=== PATIENT | male | born 1955 | race African-American/Black ===

== ENCOUNTER 2016-09-07 14:32 | Emergency (ER) | payer MEDICAID, OTHER ==
[~2016-09-07] VITALS: Ht 177.8 cm; Wt 77.3 kg
[~2016-09-07 14:32] MED LIST: AMLO-512 PO; BENZ0.5T6 PO; CITA20TA9 PO; NOCURR; RISP1TAB54 PO; TRAZ-144 PO; TRIA1CAP6 PO
[2016-09-07] MEDS ORDERED: LISI-660 PO (15:00)
[2016-09-07] MEDS ORDERED: OxyCODONE HCL/ACETAMINOPHEN 5-325 MG TABLET PO ONE (15:45)
[2016-09-07 16:30] VITALS: BP 129/90
== END 2016-09-07 17:56 | disposition home or self-care (01) ==
LOC: EMS 14:33
DX: G89.29 Other chronic pain (principal); M54.2 Cervicalgia; M54.5 Low back pain; J44.9 Chronic obstructive pulmonary disease, unspecified; F17.210 Nicotine dependence, cigarettes, uncomplicated; I10 Essential (primary) hypertension; Z71.6 Tobacco abuse counseling
CPT/HCPCS: 72040; 72100; 99285; 99406

== ENCOUNTER 2016-09-11 14:07 | Emergency (ER) | payer MEDICAID ==
[~2016-09-11] VITALS: Ht 177.8 cm; Wt 81.8 kg
[~2016-09-11 14:07] MED LIST changes: +LISI-660 PO; -NOCURR
[2016-09-11] MEDS ORDERED: METHOCARBAMOL 500 MG TABLET PO ONE (14:45)
[2016-09-11] MEDS ORDERED: KETOROLAC TROMETHAMINE 60 MG/2 ML VIAL IM ONE (14:45)
[2016-09-11] MEDS ORDERED: OxyCODONE HCL/ACETAMINOPHEN 5-325 MG TABLET PO ONE (14:45)
[2016-09-11 15:55] VITALS: BP 169/92
== END 2016-09-11 15:57 | disposition home or self-care (01) ==
LOC: EMS 14:09
DX: M54.5 Low back pain (principal); I10 Essential (primary) hypertension; F17.210 Nicotine dependence, cigarettes, uncomplicated
CPT/HCPCS: 99283

== ENCOUNTER 2017-05-12 19:18 | Inpatient (IN) | payer MEDICAID ==
[~2017-05-12] VITALS: Ht 177.8 cm; Wt 75.0 kg
[2017-05-12 19:57] LABS: APPEARANCE,URINE CLEAR (CLEAR); BILIRUBIN,URINE NEGATIVE (NEGATIVE); GLUCOSE, URINE (UA) NEGATIVE (NEGATIVE); KETONES,URINE NEGATIVE (NEGATIVE); LEUKOCYTE ESTERASE ,URINE NEGATIVE (NEGATIVE); NITRATE,URINE NEGATIVE (NEGATIVE); OCCULT BLOOD,URINE NEGATIVE (NEGATIVE); PROTEIN,URINE POS 1+ (NEGATIVE); UROBILINOGEN,URINE 0.2 mg/dL (<=1.0)
[2017-05-12 19:57] LABS: HEMATOCRIT 34.4 % (41-53); HEMOGLOBIN 11.4 g/dL (13.5-17.5); MEAN CORPUSCULAR HEMOGLOBIN 30.4 pg (26.0-34.0); MEAN CORPUSCULAR HGB CONC 33.3 G/dL (31.0-37.0); MEAN CORPUSCULAR VOLUME 91 fL (80-100); PLATELET COUNT (AUTO) 255 K/uL (150-450); RED BLOOD CELL COUNT(AUTO) 3.77 MIL/uL (4.50-5.90)
[2017-05-12 20:10] LABS: BACTERIA,URINE None Seen /HPF (None Seen); RBC,URINE None Seen /HPF (0-2); SQUAMOUS EPITHELIAL CELL,UR Rare /LPF (None Seen); WBC,URINE None Seen /HPF (0-5)
[2017-05-12 20:10] LABS: CALCIUM, TOTAL 8.8 mg/dL (8.8-10.5); CREATININE 3.59 mg/dL (0.60-1.30)
[2017-05-12 20:15] LABS: ALBUMIN 3.5 g/dL (3.4-5.0); BILIRUBIN,TOTAL 0.2 mg/dL (0.1-1.0); TOTAL PROTEIN, SERUM 7.7 g/dL (6.4-8.2)
[2017-05-12 20:44] LABS: LYMPHOCYTES % (MANUAL) 18 % (22-44); MONOCYTES % (MANUAL) 6 % (2-9); SEGMENTED NEUTROPHILS % 76 % (40-70)
[2017-05-12] MEDS ORDERED: SODIUM CHLORIDE 0.9% 1,000 ML IV ONE (20:45)
[2017-05-12] MEDS ORDERED: MORPHINE SULFATE 4 MG/ML SYRINGE IVP ONE (20:45)
[2017-05-12] MEDS ORDERED: ONDANSETRON HCL 4 MG/2 ML VIAL IVP ONE (20:45)
[2017-05-12] MEDS ORDERED: ACETAMINOPHEN 325 MG TABLET PO PRN (22:30)
[2017-05-12] MEDS ORDERED: ONDANSETRON HCL 4 MG/2 ML VIAL IVP PRN (22:30)
[2017-05-12] MEDS ORDERED: 0.9% SODIUM CHLORIDE 10 ML SYRINGE IVP PRN (22:30)
[2017-05-13] MEDS ORDERED: HYDROCODONE/ACETAMINOPHEN 5-325 MG TABLET PO PRN ×2 (00:45→02:45)
[2017-05-13] MEDS: MORPHINE SULFATE 4 MG/ML SYRINGE IVP PRN ×2 (00:59→06:06)
[2017-05-13] MEDS: RisperiDONE 1 MG TABLET PO SCH ×3 (02:45→20:26)
[2017-05-13] MEDS ORDERED: ACETAMINOPHEN 325 MG TABLET PO PRN (02:45)
[2017-05-13] MEDS ORDERED: OxyCODONE HCL/ACETAMINOPHEN 5-325 MG TABLET PO PRN (02:45)
[2017-05-13 08:01] LABS: HEMATOCRIT 36.4 % (41-53); HEMOGLOBIN 11.7 g/dL (13.5-17.5); MEAN CORPUSCULAR HEMOGLOBIN 29.9 pg (26.0-34.0); MEAN CORPUSCULAR HGB CONC 32.1 G/dL (31.0-37.0); MEAN CORPUSCULAR VOLUME 93 fL (80-100); PLATELET COUNT (AUTO) 251 K/uL (150-450); RED CELL DISTRIBUTION WIDTH 14.2 % (11.5-14.5)
[2017-05-13 08:29] LABS: CALCIUM, TOTAL 8.9 mg/dL (8.8-10.5); CREATININE 3.13 mg/dL (0.60-1.30); POTASSIUM 4.7 mmol/L (3.5-5.1)
[2017-05-13 08:40] LABS: BAND NEUTROPHILS % (MANUAL) 1 % (1-5); LYMPHOCYTES % (MANUAL) 19 % (22-44); MONOCYTES % (MANUAL) 5 % (2-9); SEGMENTED NEUTROPHILS % 75 % (40-70)
[2017-05-13] MEDS: CITALOPRAM HYDROBROMIDE 20 MG TABLET PO SCH (08:47)
[2017-05-13] MEDS ORDERED: AmLODIPine BESYLATE 10 MG TABLET PO SCH (09:00)
[2017-05-13 15:28] VITALS: BP 125/86
[2017-05-13 19:45] VITALS: BP 145/82
[2017-05-13] MEDS: TraZODone HCL 50 MG TABLET PO SCH (20:26)
[2017-05-14 00:30] VITALS: BP 129/85
[2017-05-14 04:00] VITALS: BP 117/71
[2017-05-14 07:27] VITALS: BP 99/59
[2017-05-14] MEDS: CITALOPRAM HYDROBROMIDE 20 MG TABLET PO SCH (09:53)
[2017-05-14] MEDS: RisperiDONE 1 MG TABLET PO SCH ×2 (09:53→21:00)
[2017-05-14 11:42] VITALS: BP 120/85
[2017-05-14] MEDS: DEXTROSE 5%-0.45% SODIUM CHL 1,000 ML IV SCH ×2 (11:43→20:18)
[2017-05-14 14:45] LABS: CALCIUM, TOTAL 8.6 mg/dL (8.8-10.5); CREATININE 3.65 mg/dL (0.60-1.30); POTASSIUM 5.2 mmol/L (3.5-5.1)
[2017-05-14 14:49] LABS: PHOSPHORUS 4.3 mg/dL (2.5-4.9)
[2017-05-14 15:38] VITALS: BP 104/61
[2017-05-14 19:30] VITALS: BP 153/90
[2017-05-14] MEDS: TraZODone HCL 50 MG TABLET PO SCH (20:18)
[2017-05-15 00:18] VITALS: BP 83/56
[2017-05-15 00:54] LABS: APPEARANCE,URINE CLEAR (CLEAR); BILIRUBIN,URINE NEGATIVE (NEGATIVE); GLUCOSE, URINE (UA) NEGATIVE (NEGATIVE); KETONES,URINE NEGATIVE (NEGATIVE); LEUKOCYTE ESTERASE ,URINE NEGATIVE (NEGATIVE); NITRATE,URINE NEGATIVE (NEGATIVE); OCCULT BLOOD,URINE NEGATIVE (NEGATIVE); PH,URINE 5.5 (5.0-8.0); PROTEIN,URINE NEGATIVE (NEGATIVE); UROBILINOGEN,URINE 0.2 mg/dL (<=1.0)
[2017-05-15 00:55] LABS: CREATININE,URINE RANDOM 66.7 mg/dL (30.0-125.0)
[2017-05-15 01:02] VITALS: BP 115/85
[2017-05-15 01:12] LABS: BACTERIA,URINE None Seen /HPF (None Seen); RBC,URINE None Seen /HPF (0-2); WBC,URINE None Seen /HPF (0-5)
[2017-05-15 06:24] LABS: HEMOGLOBIN 10.7 g/dL (13.5-17.5); MEAN CORPUSCULAR HEMOGLOBIN 30.2 pg (26.0-34.0); MEAN CORPUSCULAR HGB CONC 32.6 G/dL (31.0-37.0); MEAN CORPUSCULAR VOLUME 93 fL (80-100); PLATELET COUNT (AUTO) 231 K/uL (150-450); RED BLOOD CELL COUNT(AUTO) 3.56 MIL/uL (4.50-5.90); RED CELL DISTRIBUTION WIDTH 13.6 % (11.5-14.5)
[2017-05-15 06:39] LABS: ALBUMIN 3.3 g/dL (3.4-5.0); BILIRUBIN,TOTAL 0.2 mg/dL (0.1-1.0); CALCIUM, TOTAL 8.7 mg/dL (8.8-10.5); CREATININE 3.45 mg/dL (0.60-1.30); MAGNESIUM 1.9 mg/dL (1.80-2.40); PHOSPHORUS 4.3 mg/dL (2.5-4.9); POTASSIUM 4.8 mmol/L (3.5-5.1); TOTAL PROTEIN, SERUM 7.5 g/dL (6.4-8.2)
[2017-05-15 07:29] VITALS: BP 140/95
[2017-05-15] MEDS: CITALOPRAM HYDROBROMIDE 20 MG TABLET PO SCH (08:37)
[2017-05-15] MEDS: RisperiDONE 1 MG TABLET PO SCH (08:37)
[2017-05-15 10:39] LABS: BAND NEUTROPHILS % (MANUAL) 1 % (1-5); LYMPHOCYTES % (MANUAL) 20 % (22-44); MONOCYTES % (MANUAL) 6 % (2-9); SEGMENTED NEUTROPHILS % 73 % (40-70)
[2017-05-15 11:34] VITALS: BP 126/94
== END 2017-05-15 12:30 | disposition home or self-care (01) | DRG 282 ==
LOC: EMS 19:20 → 6N 05-13 10:12
PROVIDERS: ADMIT Internal Medicine; ATTEND Internal Medicine
DX: K85.90 Acute pancreatitis without necrosis or infection, unspecified (principal); N17.0 Acute kidney failure with tubular necrosis; R10.9 Unspecified abdominal pain; F17.210 Nicotine dependence, cigarettes, uncomplicated; I12.9 Hypertensive chronic kidney disease with stage 1 through stage 4 chronic kidney disease, or unspecified chronic kidney disease; N18.9 Chronic kidney disease, unspecified; Z79.899 Other long term (current) drug therapy; Z86.73 Personal history of transient ischemic attack (TIA), and cerebral infarction without residual deficits
CPT/HCPCS: 74176; 82570; 83735; 84100; 84300; 84540; 96361; 96374; 96375; 96376; 99285; J2270; J2405; J7030

== ENCOUNTER 2017-10-11 12:13 | Emergency (ER) | payer MEDICAID, OTHER ==
[~2017-10-11] VITALS: Ht 177.8 cm; Wt 72.7 kg
[2017-10-11] MEDS ORDERED: BP MEDS PO (12:26)
[2017-10-11 13:23] LABS: EOSINOPHILS % (AUTO) 0.7 % (1.0-6.0); HEMATOCRIT 32.1 % (41-53); HEMOGLOBIN 10.8 g/dL (13.5-17.5); LYMPHOCYTES # (AUTO) 1.1 K/uL (1.0-4.8); LYMPHOCYTES % (AUTO) 16.5 % (22.0-44.0); MEAN CORPUSCULAR HEMOGLOBIN 29.2 pg (26.0-34.0); MEAN CORPUSCULAR HGB CONC 33.7 G/dL (31.0-37.0); MEAN CORPUSCULAR VOLUME 87 fL (80-100); MONOCYTES # (AUTO) 0.7 K/uL (0.1-1.0); MONOCYTES % (AUTO) 11.1 % (2.0-9.0); NEUTROPHILS # (AUTO) 4.6 K/uL (1.8-7.7); NEUTROPHILS % (AUTO) 70.7 % (40.0-70.0); PLATELET COUNT (AUTO) 243 K/uL (150-450); RED CELL DISTRIBUTION WIDTH 14.3 % (11.5-14.5)
[2017-10-11 13:31] LABS: CALCIUM, TOTAL 7.6 mg/dL (8.8-10.5); CREATININE 3.49 mg/dL (0.60-1.30); POTASSIUM 4.7 mmol/L (3.5-5.1)
[2017-10-11 13:37] LABS: BILIRUBIN,TOTAL 0.2 mg/dL (0.1-1.0)
[2017-10-11] MEDS ORDERED: CloNIDine HCL 0.1 MG TABLET PO ONE ×2 (13:45→14:30)
[2017-10-11 14:16] LABS: APPEARANCE,URINE CLEAR (CLEAR); BILIRUBIN,URINE NEGATIVE (NEGATIVE); GLUCOSE, URINE (UA) NEGATIVE (NEGATIVE); KETONES,URINE NEGATIVE (NEGATIVE); LEUKOCYTE ESTERASE ,URINE NEGATIVE (NEGATIVE); NITRATE,URINE NEGATIVE (NEGATIVE); OCCULT BLOOD,URINE NEGATIVE (NEGATIVE); PROTEIN,URINE SEE CONFIRM (NEGATIVE); UROBILINOGEN,URINE 0.2 mg/dL (<=1.0)
[2017-10-11 14:19] LABS: SULFOSALICYLIC ACID,URINE 3+ (Negative)
[2017-10-11 14:21] LABS: BACTERIA,URINE Rare /HPF (None Seen); RBC,URINE None Seen /HPF (0-2); SQUAMOUS EPITHELIAL CELL,UR Rare /LPF (None Seen); WBC,URINE 0-2 /HPF (0-5)
[2017-10-11] MEDS ORDERED: HydrALAZINE HCL 20 MG/ML VIAL IVP ONE (15:45)
[2017-10-11 16:25] VITALS: BP 141/94
== END 2017-10-11 18:26 | disposition home or self-care (01) ==
LOC: EMS 12:14
DX: I12.9 Hypertensive chronic kidney disease with stage 1 through stage 4 chronic kidney disease, or unspecified chronic kidney disease (principal); N18.9 Chronic kidney disease, unspecified; F17.210 Nicotine dependence, cigarettes, uncomplicated; Z86.73 Personal history of transient ischemic attack (TIA), and cerebral infarction without residual deficits
CPT/HCPCS: 36415; 71045; 80053; 81001; 81002; 85025; 96374; 99285; J0360

== ENCOUNTER 2017-11-12 13:26 | Emergency (ER) | payer OTHER ==
[~2017-11-12] VITALS: Ht 177.8 cm; Wt 72.7 kg
[~2017-11-12 13:26] MED LIST changes: -BENZ0.5T6 PO; -CITA20TA9 PO; +CLON-570 PO; +CLON1PAT13 TD; +HYDR25TA84 PO; -LISI-660 PO; +PANT40TA25 PO; -RISP1TAB54 PO; -TRAZ-144 PO; -TRIA1CAP6 PO
[2017-11-12] MEDS ORDERED: OXYMETAZOLINE HCL 0.05% 15 ML NASAL SPRAY NASAL ONE (15:30)
[2017-11-12 16:09] LABS: BASOPHILS % (AUTO) 0.6 % (0.0-2.0); EOSINOPHILS % (AUTO) 0.4 % (1.0-6.0); HEMATOCRIT 35.2 % (41-53); HEMOGLOBIN 11.9 g/dL (13.5-17.5); LYMPHOCYTES # (AUTO) 1.8 K/uL (1.0-4.8); LYMPHOCYTES % (AUTO) 26.3 % (22.0-44.0); MEAN CORPUSCULAR HEMOGLOBIN 29.5 pg (26.0-34.0); MEAN CORPUSCULAR HGB CONC 33.9 G/dL (31.0-37.0); MEAN CORPUSCULAR VOLUME 87 fL (80-100); MONOCYTES # (AUTO) 0.5 K/uL (0.1-1.0); MONOCYTES % (AUTO) 7.7 % (2.0-9.0); NEUTROPHILS # (AUTO) 4.5 K/uL (1.8-7.7); PLATELET COUNT (AUTO) 228 K/uL (150-450); RED BLOOD CELL COUNT(AUTO) 4.05 MIL/uL (4.50-5.90); RED CELL DISTRIBUTION WIDTH 14.9 % (11.5-14.5)
[2017-11-12 16:17] LABS: CALCIUM, TOTAL 8.7 mg/dL (8.8-10.5); CREATININE 3.39 mg/dL (0.60-1.30); POTASSIUM 4.9 mmol/L (3.5-5.1)
[2017-11-12 16:23] LABS: ALBUMIN 3.7 g/dL (3.4-5.0); BILIRUBIN,TOTAL 0.3 mg/dL (0.1-1.0); TOTAL PROTEIN, SERUM 7.8 g/dL (6.4-8.2)
[2017-11-12 16:29] LABS: PLATELET MORPHOLOGY COMMENT NORMAL
[2017-11-12 17:53] VITALS: BP 155/91
== END 2017-11-12 18:06 | disposition home or self-care (01) ==
LOC: EMS 13:33
DX: R09.81 Nasal congestion (principal); I12.9 Hypertensive chronic kidney disease with stage 1 through stage 4 chronic kidney disease, or unspecified chronic kidney disease; N18.9 Chronic kidney disease, unspecified; F17.210 Nicotine dependence, cigarettes, uncomplicated
CPT/HCPCS: 99285

== ENCOUNTER 2017-12-03 14:42 | Emergency (ER) | payer OTHER ==
[~2017-12-03] VITALS: Ht 177.8 cm; Wt 72.7 kg
[2017-12-03 16:41] LABS: BASOPHILS % (AUTO) 0.4 % (0.0-2.0); EOSINOPHILS % (AUTO) 0.9 % (1.0-6.0); HEMATOCRIT 32.3 % (41-53); HEMOGLOBIN 10.9 g/dL (13.5-17.5); LYMPHOCYTES # (AUTO) 1.4 K/uL (1.0-4.8); LYMPHOCYTES % (AUTO) 22.2 % (22.0-44.0); MEAN CORPUSCULAR HEMOGLOBIN 28.9 pg (26.0-34.0); MEAN CORPUSCULAR HGB CONC 33.6 G/dL (31.0-37.0); MEAN CORPUSCULAR VOLUME 86 fL (80-100); MONOCYTES # (AUTO) 0.6 K/uL (0.1-1.0); MONOCYTES % (AUTO) 10.4 % (2.0-9.0); NEUTROPHILS # (AUTO) 4.1 K/uL (1.8-7.7); NEUTROPHILS % (AUTO) 66.1 % (40.0-70.0); PLATELET COUNT (AUTO) 236 K/uL (150-450); RED BLOOD CELL COUNT(AUTO) 3.76 MIL/uL (4.50-5.90); RED CELL DISTRIBUTION WIDTH 14.5 % (11.5-14.5)
[2017-12-03 16:51] LABS: CALCIUM, TOTAL 8.5 mg/dL (8.8-10.5); CREATININE 3.35 mg/dL (0.60-1.30); POTASSIUM 4.6 mmol/L (3.5-5.1)
[2017-12-03 16:57] LABS: ALBUMIN 3.4 g/dL (3.4-5.0); BILIRUBIN,TOTAL 0.3 mg/dL (0.1-1.0); TOTAL PROTEIN, SERUM 7.3 g/dL (6.4-8.2)
[2017-12-03] MEDS ORDERED: OxyCODONE HCL/ACETAMINOPHEN 5-325 MG TABLET PO ONE (17:30)
[2017-12-03 17:45] VITALS: BP 150/99
== END 2017-12-03 18:15 | disposition home or self-care (01) ==
LOC: EMS 14:43
DX: I12.9 Hypertensive chronic kidney disease with stage 1 through stage 4 chronic kidney disease, or unspecified chronic kidney disease (principal); N18.9 Chronic kidney disease, unspecified; M25.511 Pain in right shoulder; M25.512 Pain in left shoulder; M79.604 Pain in right leg; M79.605 Pain in left leg; G89.29 Other chronic pain; F17.210 Nicotine dependence, cigarettes, uncomplicated; Z86.73 Personal history of transient ischemic attack (TIA), and cerebral infarction without residual deficits; Z79.899 Other long term (current) drug therapy
CPT/HCPCS: 93005; 99285

== ENCOUNTER 2017-12-12 10:03 | Emergency (ER) | payer OTHER ==
[~2017-12-12] VITALS: Ht 177.8 cm; Wt 81.8 kg
[2017-12-12] MEDS ORDERED: CloNIDine HCL 0.2 MG TABLET PO ONE (10:45)
[2017-12-12] MEDS ORDERED: HydrALAZINE HCL 25 MG TABLET PO ONE (10:45)
[2017-12-12] MEDS ORDERED: AmLODIPine BESYLATE 5 MG TABLET PO ONE (10:45)
[2017-12-12] MEDS ORDERED: CloNIDine HCL 0.1 MG TABLET PO ONE (11:15)
[2017-12-12 11:27] LABS: EOSINOPHILS % (AUTO) 0.6 % (1.0-6.0); HEMATOCRIT 34.7 % (41-53); HEMOGLOBIN 11.5 g/dL (13.5-17.5); LYMPHOCYTES # (AUTO) 2.2 K/uL (1.0-4.8); LYMPHOCYTES % (AUTO) 34.4 % (22.0-44.0); MEAN CORPUSCULAR HEMOGLOBIN 29.2 pg (26.0-34.0); MEAN CORPUSCULAR HGB CONC 33.1 G/dL (31.0-37.0); MEAN CORPUSCULAR VOLUME 88 fL (80-100); MONOCYTES # (AUTO) 0.4 K/uL (0.1-1.0); MONOCYTES % (AUTO) 6.6 % (2.0-9.0); NEUTROPHILS # (AUTO) 3.6 K/uL (1.8-7.7); NEUTROPHILS % (AUTO) 57.4 % (40.0-70.0); PLATELET COUNT (AUTO) 227 K/uL (150-450); RED BLOOD CELL COUNT(AUTO) 3.93 MIL/uL (4.50-5.90); RED CELL DISTRIBUTION WIDTH 14.7 % (11.5-14.5)
[2017-12-12 11:36] LABS: CALCIUM, TOTAL 8.7 mg/dL (8.8-10.5); CREATININE 3.09 mg/dL (0.60-1.30); POTASSIUM 4.7 mmol/L (3.5-5.1)
[2017-12-12 11:44] VITALS: BP 167/97
== END 2017-12-12 12:51 | disposition home or self-care (01) ==
LOC: EMS 10:05
DX: I12.9 Hypertensive chronic kidney disease with stage 1 through stage 4 chronic kidney disease, or unspecified chronic kidney disease (principal); N18.9 Chronic kidney disease, unspecified; R47.1 Dysarthria and anarthria; F17.210 Nicotine dependence, cigarettes, uncomplicated; Z86.73 Personal history of transient ischemic attack (TIA), and cerebral infarction without residual deficits
CPT/HCPCS: 93005; 99285

== ENCOUNTER 2018-01-15 21:16 | Emergency (ER) | payer OTHER ==
[~2018-01-15] VITALS: Ht 177.8 cm; Wt 75.0 kg
[2018-01-15] MEDS ORDERED: IBUP-2071 PO (21:33)
[2018-01-15] MEDS ORDERED: ATOR20TA86 PO (21:33)
[2018-01-15] MEDS ORDERED: CLON.2 PO (21:33)
[2018-01-15] MEDS ORDERED: ALBU8HFA PUFF (21:33)
[2018-01-15] MEDS ORDERED: HYDR25TA PO (21:33)
[2018-01-15 22:00] LABS: BASOPHILS % (AUTO) 0.6 % (0.0-2.0); EOSINOPHILS % (AUTO) 2.3 % (1.0-6.0); HEMATOCRIT 30.5 % (41-53); HEMOGLOBIN 10.4 g/dL (13.5-17.5); LYMPHOCYTES # (AUTO) 1.8 K/uL (1.0-4.8); LYMPHOCYTES % (AUTO) 36.5 % (22.0-44.0); MEAN CORPUSCULAR HEMOGLOBIN 29.5 pg (26.0-34.0); MEAN CORPUSCULAR VOLUME 87 fL (80-100); MONOCYTES # (AUTO) 0.5 K/uL (0.1-1.0); MONOCYTES % (AUTO) 10.7 % (2.0-9.0); NEUTROPHILS # (AUTO) 2.5 K/uL (1.8-7.7); NEUTROPHILS % (AUTO) 49.9 % (40.0-70.0); PLATELET COUNT (AUTO) 208 K/uL (150-450); RED BLOOD CELL COUNT(AUTO) 3.52 MIL/uL (4.50-5.90); RED CELL DISTRIBUTION WIDTH 14.5 % (11.5-14.5)
[2018-01-15 22:08] LABS: CALCIUM, TOTAL 8.4 mg/dL (8.8-10.5); CREATININE 3.5 mg/dL (0.60-1.30); POTASSIUM 4.4 mmol/L (3.5-5.1)
[2018-01-15 22:11] LABS: INR 0.9 (0.9-1.1); PROTHROMBIN TIME 9.7 SEC (9.4-11.6)
[2018-01-15 22:14] LABS: BILIRUBIN,TOTAL 0.2 mg/dL (0.1-1.0); TOTAL PROTEIN, SERUM 6.6 g/dL (6.4-8.2)
[2018-01-15 23:07] LABS: APPEARANCE,URINE CLEAR (CLEAR); BILIRUBIN,URINE NEGATIVE (NEGATIVE); GLUCOSE, URINE (UA) NEGATIVE (NEGATIVE); KETONES,URINE NEGATIVE (NEGATIVE); LEUKOCYTE ESTERASE ,URINE NEGATIVE (NEGATIVE); NITRATE,URINE NEGATIVE (NEGATIVE); OCCULT BLOOD,URINE NEGATIVE (NEGATIVE); PROTEIN,URINE SEE CONFIRM (NEGATIVE); UROBILINOGEN,URINE 0.2 mg/dL (<=1.0)
[2018-01-15 23:10] LABS: AMPHET/METH SCREEN,URINE NEGATIVE (NEGATIVE); BARBITURATE SCREEN, URINE NEGATIVE (NEGATIVE); BENZODIAZEPINES SCREEN,URINE NEGATIVE (NEGATIVE); CANNABINOID SCREEN,URINE NEGATIVE (NEGATIVE); COCAINE SCREEN,URINE NEGATIVE (NEGATIVE); METHADONE SCREEN, URINE NEGATIVE (NEGATIVE); OPIATE SCREEN,URINE NEGATIVE (NEGATIVE); PHENCYCLIDINE SCREEN,URINE NEGATIVE (NEGATIVE)
[2018-01-15 23:17] LABS: SULFOSALICYLIC ACID,URINE 1+ (Negative)
[2018-01-15 23:18] LABS: BACTERIA,URINE None Seen /HPF (None Seen); RBC,URINE 0-2 /HPF (0-2); WBC,URINE 0-2 /HPF (0-5)
[2018-01-15 23:19] LABS: SQUAMOUS EPITHELIAL CELL,UR Rare /LPF (None Seen)
[2018-01-15 23:52] VITALS: BP 125/91
== END 2018-01-15 23:57 | disposition home or self-care (01) ==
LOC: EMS 21:18
DX: N28.9 Disorder of kidney and ureter, unspecified (principal); R42 Dizziness and giddiness; R47.81 Slurred speech; I10 Essential (primary) hypertension; F17.210 Nicotine dependence, cigarettes, uncomplicated; Z86.73 Personal history of transient ischemic attack (TIA), and cerebral infarction without residual deficits
CPT/HCPCS: 93005; 99285

== ENCOUNTER 2018-01-20 18:33 | Emergency (ER) | payer OTHER ==
[~2018-01-20] VITALS: Ht 177.8 cm; Wt 72.7 kg
[~2018-01-20 18:33] MED LIST changes: +ALBU8HFA PUFF; +ATOR20TA86 PO; -CLON-570 PO; +CLON.2 PO; -CLON1PAT13 TD; +HYDR25TA PO; +IBUP-2071 PO
[2018-01-20 21:01] LABS: EOSINOPHILS % (AUTO) 1.2 % (1.0-6.0); HEMATOCRIT 36.7 % (41-53); HEMOGLOBIN 12.3 g/dL (13.5-17.5); LYMPHOCYTES # (AUTO) 1.7 K/uL (1.0-4.8); LYMPHOCYTES % (AUTO) 29.1 % (22.0-44.0); MEAN CORPUSCULAR HEMOGLOBIN 29.2 pg (26.0-34.0); MEAN CORPUSCULAR HGB CONC 33.4 G/dL (31.0-37.0); MEAN CORPUSCULAR VOLUME 88 fL (80-100); MONOCYTES # (AUTO) 0.6 K/uL (0.1-1.0); MONOCYTES % (AUTO) 9.4 % (2.0-9.0); NEUTROPHILS # (AUTO) 3.5 K/uL (1.8-7.7); NEUTROPHILS % (AUTO) 59.3 % (40.0-70.0); PLATELET COUNT (AUTO) 229 K/uL (150-450); RED CELL DISTRIBUTION WIDTH 14.8 % (11.5-14.5)
[2018-01-20 21:14] LABS: CALCIUM, TOTAL 8.9 mg/dL (8.8-10.5); CREATININE 3.58 mg/dL (0.60-1.30); POTASSIUM 4.8 mmol/L (3.5-5.1)
[2018-01-20 21:20] LABS: ALBUMIN 3.6 g/dL (3.4-5.0); BILIRUBIN,TOTAL 0.3 mg/dL (0.1-1.0)
[2018-01-20] MEDS ORDERED: CloNIDine HCL 0.2 MG TABLET PO ONE (21:30)
[2018-01-20 21:47] LABS: INR 0.9 (0.9-1.1); PROTHROMBIN TIME 9.8 SEC (9.4-11.6)
[2018-01-20] MEDS ORDERED: NITROGLYCERIN 2% (1 GM=INCH) PACKET TP ONE (22:00)
[2018-01-21 01:55] VITALS: BP 135/86
== END 2018-01-21 02:37 | disposition home or self-care (01) ==
LOC: EMS 18:38
DX: R10.9 Unspecified abdominal pain (principal); R11.10 Vomiting, unspecified; I10 Essential (primary) hypertension; F17.210 Nicotine dependence, cigarettes, uncomplicated; Z86.73 Personal history of transient ischemic attack (TIA), and cerebral infarction without residual deficits
CPT/HCPCS: 99284

== ENCOUNTER 2018-03-28 17:14 | Emergency (ER) | payer OTHER ==
[~2018-03-28] VITALS: Ht 177.8 cm; Wt 90.9 kg
[2018-03-28] MEDS ORDERED: CloNIDine HCL 0.2 MG TABLET PO ONE (21:15)
[2018-03-28] MEDS ORDERED: ACETAMINOPHEN 500 MG TABLET PO ONE (21:30)
[2018-03-29 00:01] VITALS: BP 125/90
== END 2018-03-29 00:01 | disposition home or self-care (01) ==
LOC: EMS 17:15
DX: M25.512 Pain in left shoulder (principal); I10 Essential (primary) hypertension; F17.210 Nicotine dependence, cigarettes, uncomplicated; W18.39XA Other fall on same level, initial encounter; Y93.89 Activity, other specified; Y92.89 Other specified places as the place of occurrence of the external cause; Y99.8 Other external cause status

== ENCOUNTER 2018-05-18 10:52 | Inpatient (IN) | payer OTHER ==
[~2018-05-18] VITALS: Ht 177.8 cm; Wt 74.6 kg
[2018-05-18] MEDS ORDERED: KETOROLAC TROMETHAMINE 30 MG/ML VIAL IM ONE (12:45)
[2018-05-18] MEDS ORDERED: HydrALAZINE HCL 25 MG TABLET PO ONE (12:45)
[2018-05-18] MEDS ORDERED: CloNIDine HCL 0.2 MG TABLET PO ONE (12:45)
[2018-05-18] MEDS ORDERED: BACLOFEN 10 MG TABLET PO ONE (12:45)
[2018-05-18 12:58] LABS: BASOPHILS % (AUTO) 1.3 % (0.0-2.0); EOSINOPHILS % (AUTO) 0.6 % (1.0-6.0); HEMOGLOBIN 11.9 g/dL (13.5-17.5); LYMPHOCYTES # (AUTO) 1.2 K/uL (1.0-4.8); LYMPHOCYTES % (AUTO) 19.6 % (22.0-44.0); MEAN CORPUSCULAR HEMOGLOBIN 29.9 pg (26.0-34.0); MEAN CORPUSCULAR VOLUME 91 fL (80-100); MONOCYTES # (AUTO) 0.5 K/uL (0.1-1.0); NEUTROPHILS # (AUTO) 4.5 K/uL (1.8-7.7); NEUTROPHILS % (AUTO) 70.5 % (40.0-70.0); PLATELET COUNT (AUTO) 243 K/uL (150-450); RED BLOOD CELL COUNT(AUTO) 3.97 MIL/uL (4.50-5.90); RED CELL DISTRIBUTION WIDTH 14.3 % (11.5-14.5)
[2018-05-18] MEDS ORDERED: ACETAMINOPHEN 500 MG TABLET PO ONE (13:00)
[2018-05-18] MEDS ORDERED: LIDOCAINE 5% TRANSDERMAL PATCH TD ONE (13:00)
[2018-05-18 13:12] LABS: CREATININE 4.18 mg/dL (0.60-1.30); POTASSIUM 4.4 mmol/L (3.5-5.1)
[2018-05-18 13:17] LABS: ALBUMIN 3.7 g/dL (3.4-5.0); BILIRUBIN,TOTAL 0.4 mg/dL (0.1-1.0); TOTAL PROTEIN, SERUM 8.2 g/dL (6.4-8.2)
[2018-05-18] MEDS ORDERED: HYDROCHLOROTHIAZIDE 25 MG TABLET PO ONE (13:45)
[2018-05-18] MEDS ORDERED: AmLODIPine BESYLATE 5 MG TABLET PO ONE (13:45)
[2018-05-18] MEDS ORDERED: ACETAMINOPHEN 325 MG TABLET PO PRN ×3 (15:30→20:30)
[2018-05-18] MEDS ORDERED: 0.9% SODIUM CHLORIDE 10 ML SYRINGE IVP PRN (15:30)
[2018-05-18] MEDS ORDERED: ONDANSETRON HCL 4 MG/2 ML VIAL IVP PRN (15:30)
[2018-05-18 17:53] VITALS: BP 186/127
[2018-05-18 18:42] VITALS: BP 156/100
[2018-05-18] MEDS: ASPIRIN 81 MG CHEWABLE TABLET PO SCH (19:12)
[2018-05-18 19:38] VITALS: BP 158/101
[2018-05-18] MEDS: ATORVASTATIN CALCIUM 20 MG TABLET PO SCH (20:00)
[2018-05-18] MEDS: SODIUM BICARBONATE 650 MG TABLET PO SCH (20:00)
[2018-05-18] MEDS ORDERED: BISACODYL 10 MG RECTAL RECTAL SUPPOSITORY PR PRN (20:30)
[2018-05-18] MEDS ORDERED: ALBUTEROL SULFATE 2.5 MG/0.5 ML NEB SOLUTION NEB PRN (20:30)
[2018-05-18] MEDS: DOCUSATE SODIUM 100 MG CAPSULE PO SCH (21:16)
[2018-05-18] MEDS: LOSARTAN POTASSIUM 25 MG TABLET PO SCH (21:18)
[2018-05-18] MEDS: HEPARIN SODIUM,PORCINE 5,000 UNITS/ML VIAL SQ SCH (21:19)
[2018-05-18 23:40] VITALS: BP 163/110
[2018-05-18] MEDS: CloNIDine HCL 0.1 MG TABLET PO PRN (23:50)
[2018-05-19 04:02] VITALS: BP 127/88
[2018-05-19 05:52] LABS: BASOPHILS % (AUTO) 1.3 % (0.0-2.0); EOSINOPHILS % (AUTO) 1.5 % (1.0-6.0); HEMOGLOBIN 10.4 g/dL (13.5-17.5); LYMPHOCYTES # (AUTO) 1.3 K/uL (1.0-4.8); LYMPHOCYTES % (AUTO) 29.3 % (22.0-44.0); MEAN CORPUSCULAR HEMOGLOBIN 29.5 pg (26.0-34.0); MEAN CORPUSCULAR HGB CONC 33.5 G/dL (31.0-37.0); MEAN CORPUSCULAR VOLUME 88 fL (80-100); MONOCYTES # (AUTO) 0.5 K/uL (0.1-1.0); MONOCYTES % (AUTO) 11.8 % (2.0-9.0); NEUTROPHILS # (AUTO) 2.5 K/uL (1.8-7.7); NEUTROPHILS % (AUTO) 56.1 % (40.0-70.0); PLATELET COUNT (AUTO) 237 K/uL (150-450); RED BLOOD CELL COUNT(AUTO) 3.52 MIL/uL (4.50-5.90); RED CELL DISTRIBUTION WIDTH 14.4 % (11.5-14.5)
[2018-05-19 06:09] LABS: ALBUMIN 3.1 g/dL (3.4-5.0); BILIRUBIN,TOTAL 0.3 mg/dL (0.1-1.0); CALCIUM, TOTAL 8.5 mg/dL (8.8-10.5); CREATININE 4.17 mg/dL (0.60-1.30); POTASSIUM 4.5 mmol/L (3.5-5.1); TOTAL PROTEIN, SERUM 6.9 g/dL (6.4-8.2)
[2018-05-19 07:23] VITALS: BP 175/95
[2018-05-19] MEDS: LOSARTAN POTASSIUM 25 MG TABLET PO SCH ×2 (08:25→20:44)
[2018-05-19] MEDS: SODIUM BICARBONATE 650 MG TABLET PO SCH ×2 (08:25→20:44)
[2018-05-19] MEDS: AmLODIPine BESYLATE 10 MG TABLET PO SCH (08:25)
[2018-05-19] MEDS: HEPARIN SODIUM,PORCINE 5,000 UNITS/ML VIAL SQ SCH ×2 (08:26→20:44)
[2018-05-19] MEDS: DOCUSATE SODIUM 100 MG CAPSULE PO SCH ×2 (08:26→20:44)
[2018-05-19] MEDS: ASPIRIN 81 MG CHEWABLE TABLET PO SCH (08:26)
[2018-05-19] MEDS: CloNIDine HCL 0.1 MG TABLET PO PRN (08:26)
[2018-05-19 11:31] VITALS: BP 122/89
[2018-05-19] MEDS: ATENOLOL 25 MG TABLET PO SCH (16:25)
[2018-05-19 16:31] VITALS: BP 164/94
[2018-05-19 17:28] LABS: APPEARANCE,URINE CLEAR (CLEAR); BILIRUBIN,URINE NEGATIVE (NEGATIVE); GLUCOSE, URINE (UA) NEGATIVE (NEGATIVE); KETONES,URINE NEGATIVE (NEGATIVE); LEUKOCYTE ESTERASE ,URINE NEGATIVE (NEGATIVE); NITRATE,URINE NEGATIVE (NEGATIVE); OCCULT BLOOD,URINE NEGATIVE (NEGATIVE); PH,URINE 5.5 (5.0-8.0); PROTEIN,URINE SEE CONFIRM (NEGATIVE); UROBILINOGEN,URINE 0.2 mg/dL (<=1.0)
[2018-05-19 17:33] LABS: SULFOSALICYLIC ACID,URINE 4+ (Negative)
[2018-05-19 17:35] LABS: BACTERIA,URINE None Seen /HPF (None Seen); RBC,URINE None Seen /HPF (0-2); SQUAMOUS EPITHELIAL CELL,UR Rare /LPF (None Seen); WBC,URINE 0-2 /HPF (0-5)
[2018-05-19 18:01] LABS: CREATININE,URINE RANDOM 112.2 mg/dL (30.0-125.0); PROTEIN,URINE RANDOM 139 mg/dL (0-11.9); SODIUM,URINE RANDOM 73 mmol/l (20-110); UREA NITROGEN,URINE RANDOM 750 mg/dL (350-1000)
[2018-05-19 20:16] VITALS: BP 139/90
[2018-05-19] MEDS: ATORVASTATIN CALCIUM 20 MG TABLET PO SCH (20:44)
[2018-05-19 23:49] VITALS: BP 154/100
[2018-05-20] VITALS (7 sets, daily range): BP systolic 111–162; BP diastolic 78–105
[2018-05-20] MEDS: CloNIDine HCL 0.1 MG TABLET PO PRN (04:12)
[2018-05-20 06:27] LABS: BASOPHILS % (AUTO) 0.5 % (0.0-2.0); EOSINOPHILS % (AUTO) 1.9 % (1.0-6.0); HEMATOCRIT 31.7 % (41-53); HEMOGLOBIN 10.8 g/dL (13.5-17.5); LYMPHOCYTES # (AUTO) 1.4 K/uL (1.0-4.8); LYMPHOCYTES % (AUTO) 30.8 % (22.0-44.0); MEAN CORPUSCULAR VOLUME 88 fL (80-100); MONOCYTES # (AUTO) 0.6 K/uL (0.1-1.0); MONOCYTES % (AUTO) 12.1 % (2.0-9.0); NEUTROPHILS # (AUTO) 2.5 K/uL (1.8-7.7); NEUTROPHILS % (AUTO) 54.7 % (40.0-70.0); PLATELET COUNT (AUTO) 239 K/uL (150-450); RED BLOOD CELL COUNT(AUTO) 3.59 MIL/uL (4.50-5.90); RED CELL DISTRIBUTION WIDTH 14.2 % (11.5-14.5)
[2018-05-20 06:46] LABS: % IRON SATURATION 30.7 % (30-44)
[2018-05-20 07:01] LABS: CALCIUM, TOTAL 8.3 mg/dL (8.8-10.5); CREATININE 4.44 mg/dL (0.60-1.30); POTASSIUM 4.4 mmol/L (3.5-5.1)
[2018-05-20] MEDS: DOCUSATE SODIUM 100 MG CAPSULE PO SCH ×2 (08:26→20:21)
[2018-05-20] MEDS: HEPARIN SODIUM,PORCINE 5,000 UNITS/ML VIAL SQ SCH ×2 (08:26→20:21)
[2018-05-20] MEDS: SODIUM BICARBONATE 650 MG TABLET PO SCH ×2 (08:27→20:20)
[2018-05-20] MEDS: ASPIRIN 81 MG CHEWABLE TABLET PO SCH (08:27)
[2018-05-20] MEDS: AmLODIPine BESYLATE 10 MG TABLET PO SCH (08:27)
[2018-05-20] MEDS: ATENOLOL 25 MG TABLET PO SCH (14:16)
[2018-05-20] MEDS: ATORVASTATIN CALCIUM 20 MG TABLET PO SCH (20:21)
[2018-05-21] VITALS (8 sets, daily range): BP systolic 108–179; BP diastolic 74–102
[2018-05-21 05:50] LABS: PROTHROMBIN TIME 10.1 SEC (9.4-11.6)
[2018-05-21 06:03] LABS: CREATININE 4.39 mg/dL (0.60-1.30); MAGNESIUM 1.9 mg/dL (1.80-2.40); PHOSPHORUS 3.9 mg/dL (2.5-4.9); POTASSIUM 4.8 mmol/L (3.5-5.1)
[2018-05-21] MEDS: HEPARIN SODIUM,PORCINE 5,000 UNITS/ML VIAL SQ SCH ×2 (09:00→20:12)
[2018-05-21] MEDS: ASPIRIN 81 MG CHEWABLE TABLET PO SCH (09:00)
[2018-05-21] MEDS: SODIUM BICARBONATE 650 MG TABLET PO SCH ×2 (09:00→20:11)
[2018-05-21] MEDS: DOCUSATE SODIUM 100 MG CAPSULE PO SCH ×3 (09:00→20:16)
[2018-05-21] MEDS ORDERED: SODIUM CHLORIDE 0.9% 1,000 ML IV ONE ×2 (10:23→11:00)
[2018-05-21] MEDS: LABETALOL HCL 100 MG TABLET PO SCH ×2 (10:56→20:11)
[2018-05-21] MEDS: AmLODIPine BESYLATE 10 MG TABLET PO SCH (10:56)
[2018-05-21] MEDS: ATENOLOL 25 MG TABLET PO SCH (10:56)
[2018-05-21] MEDS ORDERED: LIDOCAINE/PF 1% 30 ML VIAL ONE (11:45)
[2018-05-21] MEDS ORDERED: HEPARIN SODIUM,PORCINE 5,000 UNITS/ML VIAL ONE (13:07)
[2018-05-21] MEDS ORDERED: HEPARIN SODIUM,PORCINE 1,000 UNITS/ML VIAL ONE (13:08)
[2018-05-21] MEDS ORDERED: FentaNYL CITRATE-PF 100 MCG/2 ML VIAL IVP PRN (13:30)
[2018-05-21] MEDS ORDERED: HYDROmorphone 2 MG/ML SYRINGE IVP PRN (13:30)
[2018-05-21] MEDS ORDERED: OXYGEN THERAPY IH SCH (20:00)
[2018-05-21] MEDS: ATORVASTATIN CALCIUM 20 MG TABLET PO SCH (20:11)
[2018-05-21] MEDS: OxyCODONE HCL/ACETAMINOPHEN 5-325 MG TABLET PO PRN (22:26)
[2018-05-22] MEDS: OxyCODONE HCL/ACETAMINOPHEN 5-325 MG TABLET PO PRN (03:56)
[2018-05-22 04:40] VITALS: BP 115/74
[2018-05-22] MEDS ORDERED: LIDOCAINE/PF 2% 5 ML VIAL IM ONE (05:24)
[2018-05-22] MEDS ORDERED: EPHEDrine SULFATE 50 MG/ML VIAL IM ONE (05:24)
[2018-05-22] MEDS ORDERED: PROPOFOL 1% 20 ML VIAL IVP ONE (05:24)
[2018-05-22] MEDS ORDERED: 0.9% SODIUM CHLORIDE 10 ML VIAL IVP ONE (05:24)
[2018-05-22] MEDS ORDERED: FentaNYL CITRATE-PF 100 MCG/2 ML VIAL IVP ONE (05:24)
[2018-05-22 07:25] VITALS: BP 130/89
[2018-05-22] MEDS: SODIUM BICARBONATE 650 MG TABLET PO SCH (08:05)
[2018-05-22] MEDS: AmLODIPine BESYLATE 10 MG TABLET PO SCH (08:05)
[2018-05-22] MEDS: ATENOLOL 25 MG TABLET PO SCH (08:05)
[2018-05-22] MEDS: DOCUSATE SODIUM 100 MG CAPSULE PO SCH (08:05)
[2018-05-22] MEDS: HEPARIN SODIUM,PORCINE 5,000 UNITS/ML VIAL SQ SCH (08:05)
[2018-05-22] MEDS: ASPIRIN 81 MG CHEWABLE TABLET PO SCH (08:05)
[2018-05-22] MEDS: LABETALOL HCL 100 MG TABLET PO SCH (08:05)
[2018-05-22 11:34] VITALS: BP 122/70
== END 2018-05-22 13:45 | disposition home or self-care (01) | DRG 444 ==
LOC: EMS 10:55 → 6N 15:41 → 4E 05-19 11:08
PROVIDERS: ADMIT Internal Medicine; ATTEND Internal Medicine
PROC: 03180JD Bypass Left Brachial Artery to Upper Arm Vein with Synthetic Substitute, Open Approach (ICD-10-PCS; principal; 2018-05-21 12:55)
DX: I12.0 Hypertensive chronic kidney disease with stage 5 chronic kidney disease or end stage renal disease (principal); N17.9 Acute kidney failure, unspecified; I69.351 Hemiplegia and hemiparesis following cerebral infarction affecting right dominant side; N18.6 End stage renal disease; I16.1 Hypertensive emergency; D63.8 Anemia in other chronic diseases classified elsewhere; E78.5 Hyperlipidemia, unspecified; J45.909 Unspecified asthma, uncomplicated; M54.2 Cervicalgia; G89.29 Other chronic pain; I69.328 Other speech and language deficits following cerebral infarction; Z79.899 Other long term (current) drug therapy; Z82.49 Family history of ischemic heart disease and other diseases of the circulatory system; Z87.891 Personal history of nicotine dependence; Z91.19 Patient's noncompliance with other medical treatment and regimen; Z99.2 Dependence on renal dialysis; I69.392 Facial weakness following cerebral infarction; Z83.6 Family history of other diseases of the respiratory system
CPT/HCPCS: 76770; 82570; 82728; 83540; 83550; 83735; 84100; 84156; 84300; 84540; 93005; 93970; 97116; 97161; 97166; 97535; G0378; J0690; J1644; J1885; J2704; J3010; J3490; J7030

== ENCOUNTER 2018-07-07 09:35 | Inpatient (IN) | payer OTHER ==
[~2018-07-07] VITALS: Ht 177.8 cm; Wt 78.0 kg
[~2018-07-07 09:35] MED LIST changes: -CLON.2 PO; -HYDR25TA PO; -HYDR25TA84 PO; -IBUP-2071 PO
[2018-07-07] MEDS ORDERED: CloNIDine HCL 0.1 MG TABLET PO ONE ×2 (10:15→11:30)
[2018-07-07 11:17] LABS: BASOPHILS % (AUTO) 0.7 % (0.0-2.0); EOSINOPHILS % (AUTO) 0.8 % (1.0-6.0); HEMOGLOBIN 9.5 g/dL (13.5-17.5); LYMPHOCYTES # (AUTO) 1.4 K/uL (1.0-4.8); LYMPHOCYTES % (AUTO) 22.8 % (22.0-44.0); MEAN CORPUSCULAR HEMOGLOBIN 30.4 pg (26.0-34.0); MEAN CORPUSCULAR VOLUME 89 fL (80-100); MONOCYTES # (AUTO) 0.7 K/uL (0.1-1.0); NEUTROPHILS # (AUTO) 4.1 K/uL (1.8-7.7); NEUTROPHILS % (AUTO) 64.7 % (40.0-70.0); PLATELET COUNT (AUTO) 201 K/uL (150-450); RED BLOOD CELL COUNT(AUTO) 3.13 MIL/uL (4.50-5.90); RED CELL DISTRIBUTION WIDTH 14.2 % (11.5-14.5)
[2018-07-07 11:27] LABS: CALCIUM, TOTAL 8.5 mg/dL (8.8-10.5); CREATININE 3.97 mg/dL (0.60-1.30)
[2018-07-07 11:33] LABS: ALBUMIN 3.4 g/dL (3.4-5.0); BILIRUBIN,TOTAL 0.3 mg/dL (0.1-1.0); TOTAL PROTEIN, SERUM 7.2 g/dL (6.4-8.2)
[2018-07-07] MEDS ORDERED: MANNITOL 25%-12.5 GM/50 ML VIAL IVP ONE (12:00)
[2018-07-07] MEDS ORDERED: LIDOCAINE/PF 1% 2 ML VIAL INJ ONE (12:00)
[2018-07-07] MEDS ORDERED: HydrALAZINE HCL 20 MG/ML VIAL IVP ONE (12:30)
[2018-07-07] MEDS ORDERED: METOPROLOL TARTRATE 50 MG TABLET PO ONE (13:15)
[2018-07-07 14:15] VITALS: BP 154/110
[2018-07-07] MEDS ORDERED: ONDANSETRON HCL 4 MG/2 ML VIAL IVP PRN (14:45)
[2018-07-07] MEDS ORDERED: MAGNESIUM HYDROXIDE SUSPENSION 30 ML UDCUP PO PRN (14:45)
[2018-07-07] MEDS ORDERED: MORPHINE SULFATE 2 MG/ML SYRINGE IVP PRN (14:45)
[2018-07-07] MEDS ORDERED: ZOLPIDEM TARTRATE 10 MG TABLET PO PRN (14:45)
[2018-07-07] MEDS ORDERED: IPRATROPIUM BROMIDE 0.5 MG/2.5 ML NEB SOLUTION NEB PRN (14:45)
[2018-07-07] MEDS ORDERED: ACETAMINOPHEN 325 MG TABLET PO PRN (14:45)
[2018-07-07 15:31] VITALS: BP 118/76
[2018-07-07] MEDS: NITROGLYCERIN 2% (1 GM=INCH) PACKET TP SCH (17:08)
[2018-07-07] MEDS ORDERED: MANNITOL 25%-12.5 GM/50 ML VIAL IVP PRN (19:30)
[2018-07-07 19:56] VITALS: BP 141/94
[2018-07-07] MEDS: DOCUSATE SODIUM 100 MG CAPSULE PO SCH (21:00)
[2018-07-07] MEDS: ATORVASTATIN CALCIUM 20 MG TABLET PO SCH (21:52)
[2018-07-08 00:21] VITALS: BP 138/81
[2018-07-08] MEDS: NITROGLYCERIN 2% (1 GM=INCH) PACKET TP SCH ×4 (00:53→17:55)
[2018-07-08 04:42] VITALS: BP 141/84
[2018-07-08] MEDS: HYDROCODONE/ACETAMINOPHEN 5-325 MG TABLET PO PRN ×2 (06:25→14:00)
[2018-07-08 07:20] LABS: ALBUMIN 3.1 g/dL (3.4-5.0); BILIRUBIN,TOTAL 0.3 mg/dL (0.1-1.0); CALCIUM, TOTAL 8.5 mg/dL (8.8-10.5); CHOL/HDL RATIO 1.7 (4.2-7.3); CREATININE 3.77 mg/dL (0.60-1.30); POTASSIUM 4.7 mmol/L (3.5-5.1)
[2018-07-08 07:26] VITALS: BP 121/89
[2018-07-08] MEDS: AmLODIPine BESYLATE 10 MG TABLET PO SCH (08:46)
[2018-07-08] MEDS: PANTOPRAZOLE SODIUM 40 MG/VIAL IVP SCH (08:46)
[2018-07-08] MEDS: ASPIRIN 81 MG CHEWABLE TABLET PO SCH (08:47)
[2018-07-08] MEDS: DOCUSATE SODIUM 100 MG CAPSULE PO SCH ×2 (08:47→20:41)
[2018-07-08] MEDS ORDERED: PANTOPRAZOLE SODIUM 40 MG DR TABLET PO SCH (09:00)
[2018-07-08] MEDS ORDERED: PARICALCITOL 1 MCG CAPSULE PO SCH (09:00)
[2018-07-08] MEDS ORDERED: EPOETIN ALFA 10,000 UNITS/ML VIAL SQ SCH (09:00)
[2018-07-08 15:33] VITALS: BP 169/103
[2018-07-08 20:02] VITALS: BP 162/96
[2018-07-08] MEDS: ATORVASTATIN CALCIUM 20 MG TABLET PO SCH (20:40)
[2018-07-08 23:31] VITALS: BP 153/88
[2018-07-09] MEDS: NITROGLYCERIN 2% (1 GM=INCH) PACKET TP SCH ×3 (00:01→11:17)
[2018-07-09 04:38] VITALS: BP 150/94
[2018-07-09] MEDS ORDERED: CloNIDine HCL 0.1 MG TABLET PO PRN (05:45)
[2018-07-09 07:17] VITALS: BP_SYST 159; BP_DIAS 118; BP_DIAS 18
[2018-07-09] MEDS: PANTOPRAZOLE SODIUM 40 MG/VIAL IVP SCH ×2 (08:53→09:00)
[2018-07-09] MEDS: ASPIRIN 81 MG CHEWABLE TABLET PO SCH (08:53)
[2018-07-09] MEDS: DOCUSATE SODIUM 100 MG CAPSULE PO SCH (08:53)
[2018-07-09] MEDS: AmLODIPine BESYLATE 10 MG TABLET PO SCH (09:02)
[2018-07-09 11:27] VITALS: BP 151/90
== END 2018-07-09 12:45 | disposition home or self-care (01) | DRG 469 ==
LOC: EMS 09:36 → 5N 13:41
PROVIDERS: ADMIT Hospitalist; ATTEND Hospitalist
PROC: 5A1D70Z Performance of Urinary Filtration, Intermittent, Less than 6 Hours Per Day (ICD-10-PCS; principal; 2018-07-07)
PROC: 5A1D70Z Performance of Urinary Filtration, Intermittent, Less than 6 Hours Per Day (ICD-10-PCS; 2018-07-08)
DX: N17.9 Acute kidney failure, unspecified (principal); E46 Unspecified protein-calorie malnutrition; E83.39 Other disorders of phosphorus metabolism; E83.51 Hypocalcemia; I13.11 Hypertensive heart and chronic kidney disease without heart failure, with stage 5 chronic kidney disease, or end stage renal disease; I25.10 Atherosclerotic heart disease of native coronary artery without angina pectoris; E78.5 Hyperlipidemia, unspecified; I16.0 Hypertensive urgency; D63.8 Anemia in other chronic diseases classified elsewhere; R62.7 Adult failure to thrive; J45.909 Unspecified asthma, uncomplicated; N18.6 End stage renal disease; N25.81 Secondary hyperparathyroidism of renal origin; Z87.891 Personal history of nicotine dependence; I69.351 Hemiplegia and hemiparesis following cerebral infarction affecting right dominant side; Z82.49 Family history of ischemic heart disease and other diseases of the circulatory system; Z68.24 Body mass index [BMI] 24.0-24.9, adult
CPT/HCPCS: 87086; 87340; 93005; 96374; C9113; G0378; J0360; J0885; J2150; J3490

== ENCOUNTER 2018-10-14 21:56 | Inpatient (IN) | payer OTHER ==
[~2018-10-14] VITALS: Ht 175.3 cm; Wt 69.3 kg
[2018-10-14 22:56] LABS: HEMATOCRIT 32.6 % (41-53); HEMOGLOBIN 10.7 g/dL (13.5-17.5); MEAN CORPUSCULAR HEMOGLOBIN 29.2 pg (26.0-34.0); MEAN CORPUSCULAR HGB CONC 32.8 G/dL (31.0-37.0); MEAN CORPUSCULAR VOLUME 89 fL (80-100); RED BLOOD CELL COUNT(AUTO) 3.66 MIL/uL (4.50-5.90); RED CELL DISTRIBUTION WIDTH 14.8 % (11.5-14.5)
[2018-10-14] MEDS ORDERED: ASPIRIN 325 MG EC TABLET PO ONE (23:00)
[2018-10-14 23:03] LABS: CREATININE 7.54 mg/dL (0.60-1.30); POTASSIUM 5.2 mmol/L (3.5-5.1)
[2018-10-14 23:10] LABS: ALBUMIN 4.1 g/dL (3.4-5.0); BILIRUBIN,TOTAL 0.4 mg/dL (0.1-1.0); TOTAL PROTEIN, SERUM 8.5 g/dL (6.4-8.2)
[2018-10-14 23:12] LABS: BAND NEUTROPHILS % (MANUAL) 0 % (0-5)
[2018-10-14 23:13] LABS: APPEARANCE,URINE CLEAR (CLEAR); BILIRUBIN,URINE NEGATIVE (NEGATIVE); GLUCOSE, URINE (UA) NEGATIVE (NEGATIVE); KETONES,URINE NEGATIVE (NEGATIVE); LEUKOCYTE ESTERASE ,URINE NEGATIVE (NEGATIVE); NITRATE,URINE NEGATIVE (NEGATIVE); OCCULT BLOOD,URINE TRACE (NEGATIVE); PH,URINE 5.5 (5.0-8.0); PROTEIN,URINE SEE CONFIRM (NEGATIVE); UROBILINOGEN,URINE 0.2 mg/dL (<=1.0)
[2018-10-14 23:15] LABS: LYMPHOCYTES % (MANUAL) 25 % (22-44); MONOCYTES % (MANUAL) 5 % (2-9); SEGMENTED NEUTROPHILS % 70 % (40-70)
[2018-10-14 23:18] LABS: AMPHET/METH SCREEN,URINE POSITIVE (NEGATIVE); BARBITURATE SCREEN, URINE NEGATIVE (NEGATIVE); BENZODIAZEPINES SCREEN,URINE NEGATIVE (NEGATIVE); CANNABINOID SCREEN,URINE NEGATIVE (NEGATIVE); COCAINE SCREEN,URINE POSITIVE (NEGATIVE); METHADONE SCREEN, URINE NEGATIVE (NEGATIVE); OPIATE SCREEN,URINE NEGATIVE (NEGATIVE); PHENCYCLIDINE SCREEN,URINE NEGATIVE (NEGATIVE)
[2018-10-14 23:20] LABS: PLATELET COUNT (AUTO) 311 K/uL (150-450)
[2018-10-14 23:23] LABS: BACTERIA,URINE None Seen /HPF (None Seen); RBC,URINE 0-2 /HPF (0-2); WBC,URINE 0-2 /HPF (0-5)
[2018-10-14 23:24] LABS: SQUAMOUS EPITHELIAL CELL,UR Rare /LPF (None Seen); SULFOSALICYLIC ACID,URINE 2+ (Negative)
[2018-10-14] MEDS ORDERED: SODIUM CHLORIDE 0.9% 100 ML ONE (23:32)
[2018-10-14] MEDS ORDERED: IOVERSOL 350 MG/ML 100 ML VIAL ONE (23:32)
[2018-10-14] MEDS ORDERED: AmLODIPine BESYLATE 5 MG TABLET PO ONE (23:45)
[2018-10-14] MEDS ORDERED: 0.9% SODIUM CHLORIDE 10 ML SYRINGE IVP PRN (23:45)
[2018-10-14] MEDS ORDERED: ACETAMINOPHEN 325 MG TABLET PO PRN (23:45)
[2018-10-14] MEDS ORDERED: ONDANSETRON HCL 4 MG/2 ML VIAL IVP PRN (23:45)
[2018-10-14 23:48] LABS: PROTHROMBIN TIME 10.1 SEC (9.4-11.6)
[2018-10-15] VITALS (8 sets, daily range): BP systolic 143–171; BP diastolic 94–116
[2018-10-15] MEDS ORDERED: 0.9% SODIUM CHLORIDE 10 ML SYRINGE IVP PRN (00:30)
[2018-10-15] MEDS ORDERED: HydrALAZINE HCL 20 MG/ML VIAL IVP PRN (00:30)
[2018-10-15] MEDS ORDERED: ZOLPIDEM TARTRATE 5 MG TABLET PO PRN (00:30)
[2018-10-15] MEDS ORDERED: ONDANSETRON HCL 4 MG/2 ML VIAL IVP PRN (00:30)
[2018-10-15] MEDS ORDERED: AmLODIPine BESYLATE 10 MG TABLET PO SCH (09:00)
[2018-10-15] MEDS ORDERED: ASPIRIN 81 MG CHEWABLE TABLET PO SCH (09:30)
[2018-10-15] MEDS: PANTOPRAZOLE SODIUM 40 MG DR TABLET PO SCH (09:46)
[2018-10-15] MEDS: ASPIRIN 81 MG CHEWABLE TABLET PO SCH (09:46)
[2018-10-15] MEDS ORDERED: BUMETANIDE 0.25 MG/ML 4 ML VIAL IVP ONE (12:00)
[2018-10-15] MEDS ORDERED: DiphenhydrAMINE HCL 50 MG/ML VIAL IVP ONE (12:00)
[2018-10-15] MEDS ORDERED: LIDOCAINE/PF 2% 5 ML VIAL INJ ONE (12:00)
[2018-10-15] MEDS ORDERED: SODIUM CHLORIDE 0.9% 2,000 ML IV ONE (12:40)
[2018-10-15] MEDS ORDERED: LIDOCAINE/PF 1% 2 ML VIAL ID PRN (16:30)
[2018-10-15] MEDS ORDERED: MANNITOL 25%-12.5 GM/50 ML VIAL IVP PRN (16:30)
[2018-10-15] MEDS ORDERED: ACETAMINOPHEN 325 MG TABLET PO PRN (20:00)
[2018-10-15] MEDS ORDERED: ATORVASTATIN CALCIUM 20 MG TABLET PO SCH ×2 (21:00)
[2018-10-16 05:19] VITALS: BP 139/91
[2018-10-16 06:16] LABS: BASOPHILS % (AUTO) 0.8 % (0.0-2.0); HEMATOCRIT 27.4 % (41-53); HEMOGLOBIN 9.3 g/dL (13.5-17.5); LYMPHOCYTES # (AUTO) 1.5 K/uL (1.0-4.8); LYMPHOCYTES % (AUTO) 30.4 % (22.0-44.0); MEAN CORPUSCULAR HEMOGLOBIN 29.8 pg (26.0-34.0); MEAN CORPUSCULAR HGB CONC 33.8 G/dL (31.0-37.0); MEAN CORPUSCULAR VOLUME 88 fL (80-100); MONOCYTES # (AUTO) 0.5 K/uL (0.1-1.0); MONOCYTES % (AUTO) 10.3 % (2.0-9.0); NEUTROPHILS # (AUTO) 2.8 K/uL (1.8-7.7); NEUTROPHILS % (AUTO) 57.5 % (40.0-70.0); PLATELET COUNT (AUTO) 252 K/uL (150-450); RED BLOOD CELL COUNT(AUTO) 3.11 MIL/uL (4.50-5.90); RED CELL DISTRIBUTION WIDTH 14.7 % (11.5-14.5)
[2018-10-16 06:29] LABS: CALCIUM, TOTAL 8.2 mg/dL (8.8-10.5); CREATININE 5.48 mg/dL (0.60-1.30); MAGNESIUM 1.7 mg/dL (1.80-2.40); POTASSIUM 4.6 mmol/L (3.5-5.1)
[2018-10-16] MEDS ORDERED: DiphenhydrAMINE HCL 50 MG/ML VIAL IVP ONE (08:00)
[2018-10-16 08:12] VITALS: BP_SYST 136; BP_DIAS 5; BP_DIAS 85
[2018-10-16] MEDS: ASPIRIN 81 MG CHEWABLE TABLET PO SCH (08:31)
[2018-10-16] MEDS: PANTOPRAZOLE SODIUM 40 MG DR TABLET PO SCH (08:31)
[2018-10-16] MEDS ORDERED: MANNITOL IV SCH (09:00)
[2018-10-16] MEDS ORDERED: NIFEdipine 60 MG ER TABLET PO SCH (09:00)
[2018-10-16] MEDS ORDERED: HYDROCODONE/ACETAMINOPHEN 5-325 MG TABLET PO PRN (10:00)
[2018-10-16] MEDS ORDERED: ASPI81 PO (10:09)
[2018-10-16] MEDS ORDERED: MAGNESIUM OXIDE 400 MG TABLET PO ONE (10:15)
[2018-10-16 10:50] LABS: CHOL/HDL RATIO 1.6 (4.2-7.3)
[2018-10-17] MEDS ORDERED: PARICALCITOL 5 MCG/1 ML VIAL IVP SCH (09:00)
[2018-10-17] MEDS ORDERED: EPOETIN ALFA 10,000 UNITS/ML VIAL SQ SCH (09:00)
== END 2018-10-16 15:10 | disposition home or self-care (01) | DRG 47 ==
LOC: EMS 22:00 → 5S 23:00
PROVIDERS: ADMIT Internal Medicine; ATTEND Internal Medicine
PROC: 5A1D70Z Performance of Urinary Filtration, Intermittent, Less than 6 Hours Per Day (ICD-10-PCS; principal; 2018-10-15)
PROC: 5A1D70Z Performance of Urinary Filtration, Intermittent, Less than 6 Hours Per Day (ICD-10-PCS; 2018-10-16)
DX: G45.9 Transient cerebral ischemic attack, unspecified (principal); G92 Toxic encephalopathy; E46 Unspecified protein-calorie malnutrition; R64 Cachexia; E83.39 Other disorders of phosphorus metabolism; E83.51 Hypocalcemia; N18.6 End stage renal disease; J45.909 Unspecified asthma, uncomplicated; J44.9 Chronic obstructive pulmonary disease, unspecified; D63.1 Anemia in chronic kidney disease; F19.10 Other psychoactive substance abuse, uncomplicated; F14.10 Cocaine abuse, uncomplicated; F15.10 Other stimulant abuse, uncomplicated; I13.11 Hypertensive heart and chronic kidney disease without heart failure, with stage 5 chronic kidney disease, or end stage renal disease; N25.81 Secondary hyperparathyroidism of renal origin; R62.7 Adult failure to thrive; Z82.49 Family history of ischemic heart disease and other diseases of the circulatory system; Z83.3 Family history of diabetes mellitus; Z99.2 Dependence on renal dialysis; Z86.73 Personal history of transient ischemic attack (TIA), and cerebral infarction without residual deficits; Z87.891 Personal history of nicotine dependence; Z91.19 Patient's noncompliance with other medical treatment and regimen; I25.2 Old myocardial infarction; Z68.22 Body mass index [BMI] 22.0-22.9, adult
CPT/HCPCS: 70496; 70551; 83735; 87081; 87340; 93005; 93306; 96374; 97112; 97116; 97162; 97167; 97530; G0378; J0360; J1200; J2501; J3490; J7030; J7050

== ENCOUNTER 2018-10-28 13:35 | Emergency (ER) | payer OTHER ==
[~2018-10-28] VITALS: Ht 177.8 cm; Wt 79.5 kg
[~2018-10-28 13:35] MED LIST changes: +ASPI81 PO
[2018-10-28 15:44] LABS: APPEARANCE,URINE CLEAR (CLEAR); BILIRUBIN,URINE NEGATIVE (NEGATIVE); GLUCOSE, URINE (UA) NEGATIVE (NEGATIVE); KETONES,URINE NEGATIVE (NEGATIVE); LEUKOCYTE ESTERASE ,URINE NEGATIVE (NEGATIVE); NITRATE,URINE NEGATIVE (NEGATIVE); OCCULT BLOOD,URINE NEGATIVE (NEGATIVE); PH,URINE 6.5 (5.0-8.0); PROTEIN,URINE SEE CONFIRM (NEGATIVE)
[2018-10-28 15:55] LABS: SULFOSALICYLIC ACID,URINE 2+ (Negative)
[2018-10-28 15:56] LABS: BACTERIA,URINE None Seen /HPF (None Seen); RBC,URINE 0-2 /HPF (0-2); SQUAMOUS EPITHELIAL CELL,UR Few /LPF (None Seen); WBC,URINE 0-2 /HPF (0-5)
[2018-10-28 16:02] LABS: BASOPHILS % (AUTO) 0.4 % (0.0-2.0); EOSINOPHILS % (AUTO) 1.1 % (1.0-6.0); HEMOGLOBIN 9.5 g/dL (13.5-17.5); LYMPHOCYTES # (AUTO) 1.8 K/uL (1.0-4.8); LYMPHOCYTES % (AUTO) 30.6 % (22.0-44.0); MEAN CORPUSCULAR HEMOGLOBIN 29.6 pg (26.0-34.0); MEAN CORPUSCULAR HGB CONC 31.8 G/dL (31.0-37.0); MEAN CORPUSCULAR VOLUME 93 fL (80-100); MONOCYTES # (AUTO) 0.8 K/uL (0.1-1.0); MONOCYTES % (AUTO) 13.2 % (2.0-9.0); NEUTROPHILS # (AUTO) 3.3 K/uL (1.8-7.7); NEUTROPHILS % (AUTO) 54.7 % (40.0-70.0); PLATELET COUNT (AUTO) 211 K/uL (150-450); RED BLOOD CELL COUNT(AUTO) 3.21 MIL/uL (4.50-5.90); RED CELL DISTRIBUTION WIDTH 15.3 % (11.5-14.5)
[2018-10-28 16:42] LABS: ALBUMIN 3.5 g/dL (3.4-5.0); BILIRUBIN,TOTAL 0.3 mg/dL (0.1-1.0); CALCIUM, TOTAL 8.9 mg/dL (8.8-10.5); CREATININE 5.13 mg/dL (0.60-1.30); POTASSIUM 4.1 mmol/L (3.5-5.1); TOTAL PROTEIN, SERUM 7.5 g/dL (6.4-8.2)
[2018-10-28] MEDS ORDERED: FAMOTIDINE 10 MG/ML 2 ML VIAL IVP ONE (20:15)
[2018-10-28 20:29] VITALS: BP 161/114
[2018-10-28] MEDS ORDERED: PB/HYOSCY/ATR/SCOP/LIDO/MAALOX 55 ML BOTTLE PO ONE (20:30)
== END 2018-10-28 21:06 | disposition home or self-care (01) ==
LOC: EMS 13:41
DX: K29.70 Gastritis, unspecified, without bleeding (principal); I10 Essential (primary) hypertension; J45.909 Unspecified asthma, uncomplicated; Z79.82 Long term (current) use of aspirin; Z79.899 Other long term (current) drug therapy; Z86.73 Personal history of transient ischemic attack (TIA), and cerebral infarction without residual deficits; Z87.891 Personal history of nicotine dependence
CPT/HCPCS: 36415; 74176; 80053; 81001; 82550; 83690; 83880; 84484; 85025; 93005; 96374; 99285; J3490

== ENCOUNTER 2018-11-25 17:52 | Emergency (ER) | payer OTHER ==
[~2018-11-25] VITALS: Ht 185.4 cm; Wt 88.6 kg
[~2018-11-25 17:52] MED LIST changes: -AMLO-512 PO; +AMLO10TA7 PO
[2018-11-25] MEDS ORDERED: ONDANSETRON HCL 4 MG/2 ML VIAL IVP ONE (18:15)
[2018-11-25] MEDS ORDERED: SODIUM CHLORIDE 0.9% 250 ML IV ONE (18:15)
[2018-11-25] MEDS ORDERED: MORPHINE SULFATE 2 MG/ML SYRINGE IVP ONE (18:15)
[2018-11-25 18:38] LABS: HEMOGLOBIN 11.1 g/dL (13.5-17.5); RED BLOOD CELL COUNT(AUTO) 3.62 MIL/uL (4.50-5.90)
[2018-11-25 18:39] LABS: BASOPHILS % (AUTO) 1.6 % (0.0-2.0); EOSINOPHILS % (AUTO) 1.5 % (1.0-6.0); HEMATOCRIT 34.5 % (41-53); LYMPHOCYTES # (AUTO) 1.3 K/uL (1.0-4.8); LYMPHOCYTES % (AUTO) 20.3 % (22.0-44.0); MEAN CORPUSCULAR HEMOGLOBIN 30.5 pg (26.0-34.0); MEAN CORPUSCULAR HGB CONC 32.1 G/dL (31.0-37.0); MEAN CORPUSCULAR VOLUME 95 fL (80-100); MONOCYTES # (AUTO) 0.5 K/uL (0.1-1.0); MONOCYTES % (AUTO) 7.6 % (2.0-9.0); NEUTROPHILS # (AUTO) 4.4 K/uL (1.8-7.7); PLATELET COUNT (AUTO) 249 K/uL (150-450); RED CELL DISTRIBUTION WIDTH 16.7 % (11.5-14.5)
[2018-11-25 18:50] LABS: INR 0.9 (0.9-1.1); PROTHROMBIN TIME 9.7 SEC (9.4-11.6)
[2018-11-25 19:02] LABS: CREATININE 5.12 mg/dL (0.60-1.30); POTASSIUM 4.4 mmol/L (3.5-5.1)
[2018-11-25 19:07] LABS: ALBUMIN 3.6 g/dL (3.4-5.0); BILIRUBIN,TOTAL 0.3 mg/dL (0.1-1.0); TOTAL PROTEIN, SERUM 7.7 g/dL (6.4-8.2)
[2018-11-25 19:25] LABS: APPEARANCE,URINE CLEAR (CLEAR); BILIRUBIN,URINE NEGATIVE (NEGATIVE); GLUCOSE, URINE (UA) NEGATIVE (NEGATIVE); KETONES,URINE NEGATIVE (NEGATIVE); LEUKOCYTE ESTERASE ,URINE NEGATIVE (NEGATIVE); NITRATE,URINE NEGATIVE (NEGATIVE); OCCULT BLOOD,URINE NEGATIVE (NEGATIVE); PH,URINE 6.5 (5.0-8.0); PROTEIN,URINE POS 1+ (NEGATIVE); UROBILINOGEN,URINE 0.2 mg/dL (<=1.0)
[2018-11-25] MEDS ORDERED: SODIUM CHLORIDE 0.9% 100 ML ONE (19:30)
[2018-11-25] MEDS ORDERED: IOVERSOL 350 MG/ML 100 ML VIAL ONE (19:30)
[2018-11-25 20:25] VITALS: BP 144/81
== END 2018-11-25 22:01 | disposition home or self-care (01) ==
LOC: EMS 17:53
DX: K59.00 Constipation, unspecified (principal); I12.0 Hypertensive chronic kidney disease with stage 5 chronic kidney disease or end stage renal disease; N18.6 End stage renal disease; J45.909 Unspecified asthma, uncomplicated; Z99.2 Dependence on renal dialysis; Z86.73 Personal history of transient ischemic attack (TIA), and cerebral infarction without residual deficits; Z87.891 Personal history of nicotine dependence; Z79.899 Other long term (current) drug therapy; Z79.82 Long term (current) use of aspirin
CPT/HCPCS: 36415; 71045; 74177; 80053; 81003; 83690; 85025; 85610; 85730; 86850; 86900; 86901; 96374; 96375; 99284; J2270; J2405; J7040; J7050; Q9967

== ENCOUNTER 2018-12-02 11:47 | Emergency (ER) | payer OTHER ==
[~2018-12-02] VITALS: Ht 177.8 cm; Wt 73.2 kg
[2018-12-02] MEDS ORDERED: SODIUM CHLORIDE 0.9% 500 ML IV ONE (12:15)
[2018-12-02 12:44] LABS: BASOPHILS % (AUTO) 1.5 % (0.0-2.0); HEMATOCRIT 32.2 % (41-53); HEMOGLOBIN 10.4 g/dL (13.5-17.5); LYMPHOCYTES # (AUTO) 0.8 K/uL (1.0-4.8); MEAN CORPUSCULAR HEMOGLOBIN 30.5 pg (26.0-34.0); MEAN CORPUSCULAR HGB CONC 32.3 G/dL (31.0-37.0); MEAN CORPUSCULAR VOLUME 95 fL (80-100); MONOCYTES # (AUTO) 0.6 K/uL (0.1-1.0); MONOCYTES % (AUTO) 15.7 % (2.0-9.0); NEUTROPHILS # (AUTO) 2.4 K/uL (1.8-7.7); NEUTROPHILS % (AUTO) 60.8 % (40.0-70.0); PLATELET COUNT (AUTO) 235 K/uL (150-450); RED CELL DISTRIBUTION WIDTH 16.8 % (11.5-14.5)
[2018-12-02 12:51] LABS: CALCIUM, TOTAL 8.2 mg/dL (8.8-10.5); CREATININE 5.77 mg/dL (0.60-1.30); POTASSIUM 4.1 mmol/L (3.5-5.1)
[2018-12-02] MEDS ORDERED: IOVERSOL 350 MG/ML 100 ML VIAL ONE (12:52)
[2018-12-02] MEDS ORDERED: SODIUM CHLORIDE 0.9% 100 ML ONE (12:53)
[2018-12-02 12:56] LABS: ALBUMIN 3.2 g/dL (3.4-5.0); BILIRUBIN,TOTAL 0.3 mg/dL (0.1-1.0); TOTAL PROTEIN, SERUM 6.5 g/dL (6.4-8.2)
[2018-12-02] MEDS ORDERED: ACETAMINOPHEN 500 MG TABLET PO ONE (13:15)
[2018-12-02] MEDS ORDERED: ACETAMINOPHEN 1000 MG/ISO-OSM 100 ML IV ONE (14:00)
[2018-12-02 14:25] LABS: APPEARANCE,URINE CLEAR (CLEAR); BILIRUBIN,URINE NEGATIVE (NEGATIVE); GLUCOSE, URINE (UA) NEGATIVE (NEGATIVE); KETONES,URINE NEGATIVE (NEGATIVE); LEUKOCYTE ESTERASE ,URINE NEGATIVE (NEGATIVE); NITRATE,URINE NEGATIVE (NEGATIVE); OCCULT BLOOD,URINE NEGATIVE (NEGATIVE); PH,URINE 5.5 (5.0-8.0); UROBILINOGEN,URINE 0.2 mg/dL (<=1.0)
[2018-12-02 14:27] LABS: PROTEIN,URINE NEGATIVE (NEGATIVE)
[2018-12-02 15:02] VITALS: BP 93/58
== END 2018-12-02 15:31 | disposition home or self-care (01) ==
LOC: EMS 11:48
DX: R10.31 Right lower quadrant pain (principal); I10 Essential (primary) hypertension; J45.909 Unspecified asthma, uncomplicated; Z87.891 Personal history of nicotine dependence; Z79.82 Long term (current) use of aspirin; Z79.899 Other long term (current) drug therapy
CPT/HCPCS: 36415; 71045; 74177; 80053; 81003; 83690; 85025; 93005; 96365; 99285; 99406; J0131; J7040; J7050; Q9967

== ENCOUNTER 2018-12-04 14:22 | Emergency (ER) | payer OTHER ==
[~2018-12-04] VITALS: Ht 182.9 cm; Wt 81.8 kg
[2018-12-04] MEDS: PB/HYOSCY/ATR/SCOP/LIDO/MAALOX 55 ML BOTTLE PO ONE ×2 (15:04→15:05)
[2018-12-04 16:10] LABS: EOSINOPHILS % (AUTO) 0.9 % (1.0-6.0); HEMATOCRIT 38.2 % (41-53); HEMOGLOBIN 11.8 g/dL (13.5-17.5); LYMPHOCYTES # (AUTO) 1.4 K/uL (1.0-4.8); LYMPHOCYTES % (AUTO) 21.6 % (22.0-44.0); MEAN CORPUSCULAR HEMOGLOBIN 30.2 pg (26.0-34.0); MEAN CORPUSCULAR HGB CONC 30.8 G/dL (31.0-37.0); MEAN CORPUSCULAR VOLUME 98 fL (80-100); MONOCYTES # (AUTO) 0.7 K/uL (0.1-1.0); MONOCYTES % (AUTO) 11.1 % (2.0-9.0); NEUTROPHILS # (AUTO) 4.2 K/uL (1.8-7.7); NEUTROPHILS % (AUTO) 65.4 % (40.0-70.0); PLATELET COUNT (AUTO) 272 K/uL (150-450); RED BLOOD CELL COUNT(AUTO) 3.89 MIL/uL (4.50-5.90); RED CELL DISTRIBUTION WIDTH 17.4 % (11.5-14.5)
[2018-12-04 17:05] LABS: APPEARANCE,URINE CLEAR (CLEAR); BILIRUBIN,URINE NEGATIVE (NEGATIVE); GLUCOSE, URINE (UA) NEGATIVE (NEGATIVE); KETONES,URINE NEGATIVE (NEGATIVE); LEUKOCYTE ESTERASE ,URINE NEGATIVE (NEGATIVE); NITRATE,URINE NEGATIVE (NEGATIVE); OCCULT BLOOD,URINE NEGATIVE (NEGATIVE); PROTEIN,URINE POS 1+ (NEGATIVE)
[2018-12-04 17:42] VITALS: BP 142/92
[2018-12-04 17:47] LABS: CALCIUM, TOTAL 8.9 mg/dL (8.8-10.5); CREATININE 5.51 mg/dL (0.60-1.30); POTASSIUM 4.6 mmol/L (3.5-5.1)
[2018-12-04 17:51] LABS: BACTERIA,URINE None Seen /HPF (None Seen); RBC,URINE 0-2 /HPF (0-2); WBC,URINE None Seen /HPF (0-5)
[2018-12-04 17:52] LABS: SQUAMOUS EPITHELIAL CELL,UR None Seen /LPF (None Seen)
[2018-12-04 17:58] LABS: BILIRUBIN,TOTAL 0.4 mg/dL (0.1-1.0); TOTAL PROTEIN, SERUM 7.9 g/dL (6.4-8.2)
== END 2018-12-04 18:24 | disposition home or self-care (01) ==
LOC: EMS 14:24
DX: R10.13 Epigastric pain (principal); I12.0 Hypertensive chronic kidney disease with stage 5 chronic kidney disease or end stage renal disease; N18.6 End stage renal disease; J45.909 Unspecified asthma, uncomplicated; Z99.2 Dependence on renal dialysis; Z79.899 Other long term (current) drug therapy; Z86.73 Personal history of transient ischemic attack (TIA), and cerebral infarction without residual deficits; Z87.891 Personal history of nicotine dependence

== ENCOUNTER 2018-12-07 16:18 | Emergency (ER) | payer OTHER ==
[~2018-12-07] VITALS: Ht 175.3 cm; Wt 75.0 kg
[2018-12-07 17:08] LABS: BASOPHILS % (AUTO) 1.2 % (0.0-2.0); EOSINOPHILS % (AUTO) 1.3 % (1.0-6.0); HEMATOCRIT 35.1 % (41-53); HEMOGLOBIN 11.3 g/dL (13.5-17.5); LYMPHOCYTES # (AUTO) 1.2 K/uL (1.0-4.8); LYMPHOCYTES % (AUTO) 17.8 % (22.0-44.0); MEAN CORPUSCULAR HEMOGLOBIN 31.2 pg (26.0-34.0); MEAN CORPUSCULAR HGB CONC 32.2 G/dL (31.0-37.0); MEAN CORPUSCULAR VOLUME 97 fL (80-100); MONOCYTES # (AUTO) 0.7 K/uL (0.1-1.0); MONOCYTES % (AUTO) 10.4 % (2.0-9.0); NEUTROPHILS # (AUTO) 4.5 K/uL (1.8-7.7); NEUTROPHILS % (AUTO) 69.3 % (40.0-70.0); PLATELET COUNT (AUTO) 250 K/uL (150-450); RED BLOOD CELL COUNT(AUTO) 3.63 MIL/uL (4.50-5.90); RED CELL DISTRIBUTION WIDTH 17.3 % (11.5-14.5)
[2018-12-07 17:22] LABS: CALCIUM, TOTAL 8.8 mg/dL (8.8-10.5); CREATININE 6.74 mg/dL (0.60-1.30); POTASSIUM 5.2 mmol/L (3.5-5.1)
[2018-12-07 17:28] LABS: ALBUMIN 3.5 g/dL (3.4-5.0); BILIRUBIN,TOTAL 0.3 mg/dL (0.1-1.0); TOTAL PROTEIN, SERUM 7.2 g/dL (6.4-8.2)
[2018-12-07 20:45] LABS: APPEARANCE,URINE CLEAR (CLEAR); BILIRUBIN,URINE NEGATIVE (NEGATIVE); GLUCOSE, URINE (UA) NEGATIVE (NEGATIVE); KETONES,URINE NEGATIVE (NEGATIVE); LEUKOCYTE ESTERASE ,URINE NEGATIVE (NEGATIVE); NITRATE,URINE NEGATIVE (NEGATIVE); OCCULT BLOOD,URINE TRACE (NEGATIVE); PH,URINE 8.5 (5.0-8.0); PROTEIN,URINE SEE CONFIRM (NEGATIVE)
[2018-12-07 20:56] LABS: SULFOSALICYLIC ACID,URINE 3+ (Negative)
[2018-12-07 20:57] LABS: BACTERIA,URINE None Seen /HPF (None Seen); RBC,URINE 0-2 /HPF (0-2); SQUAMOUS EPITHELIAL CELL,UR Rare /LPF (None Seen); WBC,URINE 0-2 /HPF (0-5)
[2018-12-07] MEDS ORDERED: MORPHINE SULFATE 2 MG/ML SYRINGE IVP ONE (21:15)
[2018-12-07] MEDS ORDERED: FAMOTIDINE 10 MG/ML 2 ML VIAL IVP ONE (21:15)
[2018-12-07] MEDS ORDERED: ONDANSETRON HCL 4 MG/2 ML VIAL IVP ONE (21:15)
[2018-12-08 00:45] VITALS: BP 129/77
== END 2018-12-08 01:04 | disposition home or self-care (01) ==
LOC: EMS 16:19
DX: I12.0 Hypertensive chronic kidney disease with stage 5 chronic kidney disease or end stage renal disease (principal); N18.6 End stage renal disease; J45.909 Unspecified asthma, uncomplicated; Z99.2 Dependence on renal dialysis; Z87.891 Personal history of nicotine dependence; Z86.73 Personal history of transient ischemic attack (TIA), and cerebral infarction without residual deficits; Z79.82 Long term (current) use of aspirin
CPT/HCPCS: 36415; 80053; 81001; 83690; 85025; 96374; 96375; 99283; J2270; J2405; J3490

== ENCOUNTER 2019-01-22 12:28 | Emergency (ER) | payer OTHER ==
[~2019-01-22] VITALS: Ht 177.8 cm; Wt 81.8 kg
[2019-01-22] MEDS ORDERED: HYDROGEN PEROXIDE 118 ML SOLUTION TP ONE (14:45)
[2019-01-22] MEDS ORDERED: CloNIDine HCL 0.2 MG TABLET PO ONE (15:15)
[2019-01-22 17:15] VITALS: BP 160/102
[2019-01-22] MEDS ORDERED: ACETAMINOPHEN 500 MG TABLET PO ONE (17:45)
== END 2019-01-22 17:55 | disposition home or self-care (01) ==
LOC: EMS 12:30
DX: H60.92 Unspecified otitis externa, left ear (principal); H61.22 Impacted cerumen, left ear; I10 Essential (primary) hypertension; J45.909 Unspecified asthma, uncomplicated; Z86.73 Personal history of transient ischemic attack (TIA), and cerebral infarction without residual deficits; Z87.891 Personal history of nicotine dependence; Z79.82 Long term (current) use of aspirin
CPT/HCPCS: 69209; 69210

== ENCOUNTER 2019-03-03 13:47 | Emergency (ER) | payer OTHER ==
[~2019-03-03] VITALS: Ht 182.9 cm; Wt 77.3 kg
[2019-03-03] MEDS ORDERED: POVIDONE-IODINE 10% 15 ML SOLUTION UD TP ONE (15:45)
[2019-03-03] MEDS ORDERED: LIDOCAINE 1%/EPI 1:200,000/PF 10 ML VIAL INJ ONE (15:45)
[2019-03-03 16:48] VITALS: BP 152/85
== END 2019-03-03 16:59 | disposition home or self-care (01) ==
LOC: EMS 13:49
DX: L02.415 Cutaneous abscess of right lower limb (principal); L03.116 Cellulitis of left lower limb; I12.0 Hypertensive chronic kidney disease with stage 5 chronic kidney disease or end stage renal disease; N18.6 End stage renal disease; J45.909 Unspecified asthma, uncomplicated; Z99.2 Dependence on renal dialysis; Z86.73 Personal history of transient ischemic attack (TIA), and cerebral infarction without residual deficits; Z79.899 Other long term (current) drug therapy; Z79.82 Long term (current) use of aspirin; Z98.890 Other specified postprocedural states; Z87.891 Personal history of nicotine dependence
CPT/HCPCS: 10060; 99283; J3490

== ENCOUNTER 2019-03-05 10:44 | Emergency (ER) | payer OTHER ==
[~2019-03-05] VITALS: Ht 182.9 cm; Wt 81.8 kg
[2019-03-05] MEDS ORDERED: BACITRACIN 0.9 GM PACKET OINTMENT TP ONE (13:15)
[2019-03-05 14:03] VITALS: BP 189/129
== END 2019-03-05 14:16 | disposition home or self-care (01) ==
LOC: EMS 10:47
DX: I10 Essential (primary) hypertension (principal); J45.909 Unspecified asthma, uncomplicated; Z48.01 Encounter for change or removal of surgical wound dressing; Z86.73 Personal history of transient ischemic attack (TIA), and cerebral infarction without residual deficits; Z79.82 Long term (current) use of aspirin; Z79.899 Other long term (current) drug therapy; Z98.890 Other specified postprocedural states; Z99.2 Dependence on renal dialysis; Z87.891 Personal history of nicotine dependence

== ENCOUNTER 2019-03-12 13:58 | Inpatient (IN) | payer OTHER ==
[~2019-03-12] VITALS: Ht 175.3 cm; Wt 73.0 kg
[2019-03-12] MEDS ORDERED: LABETALOL HCL 5 MG/ML 20 ML VIAL IVP ONE (14:45)
[2019-03-12] MEDS ORDERED: CloNIDine HCL 0.1 MG TABLET PO ONE (14:45)
[2019-03-12 15:05] LABS: BASOPHILS % (AUTO) 1.2 % (0.0-2.0); EOSINOPHILS % (AUTO) 0.6 % (1.0-6.0); HEMATOCRIT 37.9 % (41-53); HEMOGLOBIN 12.4 g/dL (13.5-17.5); LYMPHOCYTES # (AUTO) 1.1 K/uL (1.0-4.8); LYMPHOCYTES % (AUTO) 19.2 % (22.0-44.0); MEAN CORPUSCULAR HEMOGLOBIN 31.5 pg (26.0-34.0); MEAN CORPUSCULAR HGB CONC 32.6 G/dL (31.0-37.0); MEAN CORPUSCULAR VOLUME 97 fL (80-100); MONOCYTES # (AUTO) 0.5 K/uL (0.1-1.0); MONOCYTES % (AUTO) 7.9 % (2.0-9.0); NEUTROPHILS % (AUTO) 71.1 % (40.0-70.0); PLATELET COUNT (AUTO) 200 K/uL (150-450); RED BLOOD CELL COUNT(AUTO) 3.92 MIL/uL (4.50-5.90); RED CELL DISTRIBUTION WIDTH 15.4 % (11.5-14.5)
[2019-03-12 15:19] LABS: CALCIUM, TOTAL 8.1 mg/dL (8.8-10.5); CREATININE 4.38 mg/dL (0.60-1.30); POTASSIUM 5.8 mmol/L (3.5-5.1)
[2019-03-12 15:26] LABS: ALBUMIN 3.2 g/dL (3.4-5.0); BILIRUBIN,TOTAL 0.3 mg/dL (0.1-1.0); TOTAL PROTEIN, SERUM 7.7 g/dL (6.4-8.2)
[2019-03-12] MEDS ORDERED: NITROGLYCERIN 2% (1 GM=INCH) PACKET TP ONE (16:00)
[2019-03-12] MEDS ORDERED: ONDANSETRON HCL 4 MG/2 ML VIAL IVP PRN ×2 (16:00→20:00)
[2019-03-12] MEDS ORDERED: 0.9% SODIUM CHLORIDE 10 ML SYRINGE IVP PRN ×2 (16:00→20:00)
[2019-03-12] MEDS ORDERED: SODIUM BICARBONATE [ADULT] 8.4% 50 MEQ/50 ML SYRINGE IVP ONE (16:00)
[2019-03-12] MEDS ORDERED: ACETAMINOPHEN 325 MG TABLET PO PRN (16:00)
[2019-03-12] MEDS ORDERED: ASPIRIN 325 MG TABLET PO ONE (16:00)
[2019-03-12] MEDS: LABETALOL HCL 5 MG/ML 20 ML VIAL IVP ONE ×2 (16:25→16:37)
[2019-03-12] MEDS ORDERED: IPRATROPIUM BROMIDE 0.5 MG/2.5 ML NEB SOLUTION NEB PRN (20:00)
[2019-03-12] MEDS ORDERED: ZOLPIDEM TARTRATE 5 MG TABLET PO PRN (20:00)
[2019-03-12] MEDS ORDERED: ALBUTEROL SULFATE 2.5 MG/0.5 ML NEB SOLUTION NEB PRN (20:00)
[2019-03-12 21:26] VITALS: BP 148/100
[2019-03-12] MEDS: ATORVASTATIN CALCIUM 20 MG TABLET PO SCH (21:28)
[2019-03-12] MEDS: DOCUSATE SODIUM 100 MG CAPSULE PO SCH (21:28)
[2019-03-12] MEDS: AmLODIPine BESYLATE 10 MG TABLET PO SCH (21:28)
[2019-03-12] MEDS: ALBUTEROL SULFATE 2.5 MG/0.5 ML NEB SOLUTION NEB SCH (21:43)
[2019-03-12] MEDS: IPRATROPIUM BROMIDE 0.5 MG/2.5 ML NEB SOLUTION NEB SCH (21:44)
[2019-03-12 23:50] VITALS: BP 157/99
[2019-03-13] MEDS: HEPARIN SODIUM,PORCINE 5,000 UNITS/ML VIAL SQ SCH ×3 (00:08→15:45)
[2019-03-13 00:10] VITALS: BP 161/111
[2019-03-13] MEDS ORDERED: INFLUENZA VIRUS VACCINE QVS 2019-20 (3YR+)/PF 60 MCG/0.5 ML SYRINGE IM ONE (00:15)
[2019-03-13] MEDS: IPRATROPIUM BROMIDE 0.5 MG/2.5 ML NEB SOLUTION NEB SCH ×4 (01:05→20:40)
[2019-03-13] MEDS: ALBUTEROL SULFATE 2.5 MG/0.5 ML NEB SOLUTION NEB SCH ×4 (01:06→20:41)
[2019-03-13 08:02] VITALS: BP 161/100
[2019-03-13] MEDS: DOCUSATE SODIUM 100 MG CAPSULE PO SCH ×2 (08:40→20:27)
[2019-03-13] MEDS: AmLODIPine BESYLATE 10 MG TABLET PO SCH (08:40)
[2019-03-13] MEDS: ASPIRIN 81 MG CHEWABLE TABLET PO SCH (08:40)
[2019-03-13] MEDS: PANTOPRAZOLE SODIUM 40 MG DR TABLET PO SCH (08:41)
[2019-03-13 09:19] LABS: BASOPHILS % (AUTO) 0.6 % (0.0-2.0); EOSINOPHILS % (AUTO) 1.3 % (1.0-6.0); HEMATOCRIT 34.5 % (41-53); HEMOGLOBIN 11.2 g/dL (13.5-17.5); LYMPHOCYTES # (AUTO) 1.2 K/uL (1.0-4.8); LYMPHOCYTES % (AUTO) 21.6 % (22.0-44.0); MEAN CORPUSCULAR HEMOGLOBIN 31.4 pg (26.0-34.0); MEAN CORPUSCULAR HGB CONC 32.4 G/dL (31.0-37.0); MEAN CORPUSCULAR VOLUME 97 fL (80-100); MONOCYTES # (AUTO) 0.4 K/uL (0.1-1.0); MONOCYTES % (AUTO) 7.8 % (2.0-9.0); NEUTROPHILS # (AUTO) 3.8 K/uL (1.8-7.7); NEUTROPHILS % (AUTO) 68.7 % (40.0-70.0); PLATELET COUNT (AUTO) 198 K/uL (150-450); RED BLOOD CELL COUNT(AUTO) 3.55 MIL/uL (4.50-5.90); RED CELL DISTRIBUTION WIDTH 15.7 % (11.5-14.5)
[2019-03-13 09:31] LABS: CALCIUM, TOTAL 7.9 mg/dL (8.8-10.5); CREATININE 4.45 mg/dL (0.60-1.30); MAGNESIUM 1.8 mg/dL (1.80-2.40); POTASSIUM 4.5 mmol/L (3.5-5.1)
[2019-03-13] MEDS ORDERED: HEPARIN SODIUM,PORCINE 1,000 UNITS/ML VIAL IVP ONE (10:04)
[2019-03-13 11:29] LABS: GLUCOMETER DEV NAME(LOC) 5S.2A; GLUCOSE,POINT OF CARE 90 MG/DL (70-110)
[2019-03-13 11:44] VITALS: BP 149/100
[2019-03-13 13:04] VITALS: BP 156/99
[2019-03-13] MEDS ORDERED: SODIUM CHLORIDE 0.9% 1,000 ML IV ONE (14:21)
[2019-03-13 16:42] VITALS: BP 169/119
[2019-03-13] MEDS: HydrALAZINE HCL 20 MG/ML VIAL IVP PRN (16:43)
[2019-03-13 19:50] VITALS: BP 180/122
[2019-03-13] MEDS ORDERED: HydrALAZINE HCL 20 MG/ML VIAL IVP ONE (20:15)
[2019-03-13] MEDS ORDERED: MAGNESIUM HYDROXIDE SUSPENSION 30 ML UDCUP PO PRN (20:15)
[2019-03-13] MEDS: ATORVASTATIN CALCIUM 20 MG TABLET PO SCH (20:28)
[2019-03-14 00:12] VITALS: BP 186/127
[2019-03-14] MEDS: HydrALAZINE HCL 20 MG/ML VIAL IVP PRN (00:49)
[2019-03-14] MEDS: HEPARIN SODIUM,PORCINE 5,000 UNITS/ML VIAL SQ SCH ×2 (00:49→08:00)
[2019-03-14] MEDS ORDERED: 0.9% SODIUM CHLORIDE 5 ML NEB SOLUTION NEB ONE (01:36)
[2019-03-14] MEDS: IPRATROPIUM BROMIDE 0.5 MG/2.5 ML NEB SOLUTION NEB SCH ×2 (01:40→08:00)
[2019-03-14] MEDS: ALBUTEROL SULFATE 2.5 MG/0.5 ML NEB SOLUTION NEB SCH ×2 (01:40→08:00)
[2019-03-14 05:20] VITALS: BP 193/130
[2019-03-14] MEDS: AmLODIPine BESYLATE 10 MG TABLET PO SCH (05:46)
[2019-03-14 07:50] VITALS: BP 151/99
[2019-03-14] MEDS: PANTOPRAZOLE SODIUM 40 MG DR TABLET PO SCH (08:27)
[2019-03-14] MEDS: ASPIRIN 81 MG CHEWABLE TABLET PO SCH (08:29)
[2019-03-14] MEDS: DOCUSATE SODIUM 100 MG CAPSULE PO SCH (08:29)
[2019-03-14] MEDS ORDERED: CARVEDILOL 6.25 MG TABLET PO SCH (09:30)
[2019-03-14] MEDS ORDERED: CARV6 PO (09:35)
== END 2019-03-14 10:05 | disposition home or self-care (01) | DRG 199 ==
LOC: EMS 13:59 → 5S 19:20
PROVIDERS: ADMIT Internal Medicine; ATTEND Internal Medicine
PROC: 5A1D70Z Performance of Urinary Filtration, Intermittent, Less than 6 Hours Per Day (ICD-10-PCS; principal; 2019-03-13)
DX: I16.0 Hypertensive urgency (principal); E11.22 Type 2 diabetes mellitus with diabetic chronic kidney disease; E46 Unspecified protein-calorie malnutrition; E83.39 Other disorders of phosphorus metabolism; N18.6 End stage renal disease; E87.5 Hyperkalemia; D63.8 Anemia in other chronic diseases classified elsewhere; E78.5 Hyperlipidemia, unspecified; I13.11 Hypertensive heart and chronic kidney disease without heart failure, with stage 5 chronic kidney disease, or end stage renal disease; J45.909 Unspecified asthma, uncomplicated; E83.51 Hypocalcemia; N25.81 Secondary hyperparathyroidism of renal origin; R62.7 Adult failure to thrive; I16.1 Hypertensive emergency; Z86.73 Personal history of transient ischemic attack (TIA), and cerebral infarction without residual deficits; Z99.2 Dependence on renal dialysis; Z82.49 Family history of ischemic heart disease and other diseases of the circulatory system; Z87.891 Personal history of nicotine dependence
CPT/HCPCS: 83605; 83735; 87081; 87340; 93005; 93306; 94640; 96374; 99291; J0360; J1644; J3490; J7030

== ENCOUNTER 2019-03-30 16:29 | Inpatient (IN) | payer OTHER ==
[~2019-03-30] VITALS: Ht 175.3 cm; Wt 71.6 kg
[~2019-03-30 16:29] MED LIST changes: +CARV6 PO
[2019-03-30] MEDS ORDERED: SODIUM CHLORIDE 0.9% 1,000 ML IV ONE (17:45)
[2019-03-30 18:32] LABS: BASOPHILS % (AUTO) 0.6 % (0.0-2.0); EOSINOPHILS % (AUTO) 1.4 % (1.0-6.0); HEMOGLOBIN 12.5 g/dL (13.5-17.5); LYMPHOCYTES # (AUTO) 1.1 K/uL (1.0-4.8); MEAN CORPUSCULAR HEMOGLOBIN 32.1 pg (26.0-34.0); MEAN CORPUSCULAR VOLUME 98 fL (80-100); MONOCYTES # (AUTO) 1.3 K/uL (0.1-1.0); MONOCYTES % (AUTO) 17.4 % (2.0-9.0); NEUTROPHILS # (AUTO) 4.9 K/uL (1.8-7.7); NEUTROPHILS % (AUTO) 65.6 % (40.0-70.0); PLATELET COUNT (AUTO) 204 K/uL (150-450); RED CELL DISTRIBUTION WIDTH 15.7 % (11.5-14.5)
[2019-03-30 18:55] LABS: ALANINE AMINOTRANSFERASE 31 U/L (12-78); ALBUMIN 3.6 g/dL (3.4-5.0); ALKALINE PHOSPHATASE 99 U/L (46-116); ANION GAP 19 mmol/L (8-16); ASPARTATE AMINOTRANSFERASE 38 U/L (15-37); BILIRUBIN,TOTAL 0.4 mg/dL (0.1-1.0); CALCIUM, TOTAL 6.8 mg/dL (8.8-10.5); CARBON DIOXIDE 17 mmol/L (22-29); CHLORIDE 101 mmol/L (98-107); CREATININE 12.95 mg/dL (0.60-1.30); GLOMERULAR FILTR. RATE CALC 5 mL/min (>60); GLUCOSE,RANDOM 78 mg/dL (70-110); POTASSIUM 5.7 mmol/L (3.5-5.1); SODIUM SERUM 137 mmol/L (136-145); TOTAL PROTEIN, SERUM 7.6 g/dL (6.4-8.2)
[2019-03-30 18:58] LABS: UREA NITROGEN, BLOOD 122 mg/dL (7-18)
[2019-03-30] MEDS ORDERED: ALBUTEROL SULFATE 5 MG/ML 20 ML NEB SOLN [BULK] NEB ONE (19:30)
[2019-03-30] MEDS ORDERED: ACETAMINOPHEN 325 MG TABLET PO PRN ×2 (19:45→23:30)
[2019-03-30] MEDS ORDERED: 0.9% SODIUM CHLORIDE 10 ML SYRINGE IVP PRN (19:45)
[2019-03-30] MEDS ORDERED: BUMETANIDE 0.25 MG/ML 4 ML VIAL IVP ONE (19:45)
[2019-03-30] MEDS ORDERED: SODIUM BICARBONATE 650 MG TABLET PO ONE (19:45)
[2019-03-30 22:24] LABS: AMPHET/METH SCREEN,URINE POSITIVE (NEGATIVE); BARBITURATE SCREEN, URINE NEGATIVE (NEGATIVE); BENZODIAZEPINES SCREEN,URINE NEGATIVE (NEGATIVE); CANNABINOID SCREEN,URINE NEGATIVE (NEGATIVE); COCAINE SCREEN,URINE POSITIVE (NEGATIVE); METHADONE SCREEN, URINE NEGATIVE (NEGATIVE); OPIATE SCREEN,URINE NEGATIVE (NEGATIVE); PHENCYCLIDINE SCREEN,URINE NEGATIVE (NEGATIVE)
[2019-03-30] MEDS ORDERED: MAGNESIUM HYDROXIDE SUSPENSION 30 ML UDCUP PO PRN (23:30)
[2019-03-30] MEDS ORDERED: MORPHINE SULFATE 2 MG/ML SYRINGE IVP PRN (23:30)
[2019-03-30] MEDS ORDERED: ONDANSETRON HCL 4 MG/2 ML VIAL IVP PRN (23:30)
[2019-03-30] MEDS ORDERED: BISACODYL 10 MG RECTAL RECTAL SUPPOSITORY PR PRN (23:30)
[2019-03-30] MEDS ORDERED: ZOLPIDEM TARTRATE 5 MG TABLET PO PRN (23:30)
[2019-03-31] MEDS: HYDROCODONE/ACETAMINOPHEN 5-325 MG TABLET PO PRN (00:02)
[2019-03-31] MEDS: HEPARIN SODIUM,PORCINE 5,000 UNITS/ML VIAL SQ SCH ×4 (00:03→23:17)
[2019-03-31 00:48] VITALS: BP 129/91
[2019-03-31] MEDS: ALBUTEROL SULFATE HFA 90 MCG/PUFF 8 GM INHALER IH SCH ×5 (02:00→23:15)
[2019-03-31 04:40] VITALS: BP 154/96
[2019-03-31 07:04] LABS: HEMATOCRIT 37.7 % (41-53); HEMOGLOBIN 12.6 g/dL (13.5-17.5); MEAN CORPUSCULAR HEMOGLOBIN 32.4 pg (26.0-34.0); MEAN CORPUSCULAR HGB CONC 33.4 G/dL (31.0-37.0); MEAN CORPUSCULAR VOLUME 97 fL (80-100); PLATELET COUNT (AUTO) 201 K/uL (150-450); RED BLOOD CELL COUNT(AUTO) 3.88 MIL/uL (4.50-5.90); RED CELL DISTRIBUTION WIDTH 15.4 % (11.5-14.5)
[2019-03-31 07:27] LABS: ALBUMIN 3.6 g/dL (3.4-5.0); BILIRUBIN,TOTAL 0.4 mg/dL (0.1-1.0); CALCIUM, TOTAL 6.6 mg/dL (8.8-10.5); CREATININE 13.37 mg/dL (0.60-1.30); POTASSIUM 5.1 mmol/L (3.5-5.1); TOTAL PROTEIN, SERUM 7.8 g/dL (6.4-8.2)
[2019-03-31 07:38] VITALS: BP 140/98
[2019-03-31 07:50] LABS: BAND NEUTROPHILS % (MANUAL) 0 % (0-5)
[2019-03-31 07:53] LABS: LYMPHOCYTES % (MANUAL) 18 % (22-44); MONOCYTES % (MANUAL) 5 % (2-9); SEGMENTED NEUTROPHILS % 77 % (40-70)
[2019-03-31] MEDS: DOCUSATE SODIUM 100 MG CAPSULE PO SCH ×2 (08:44→20:25)
[2019-03-31] MEDS: CARVEDILOL 6.25 MG TABLET PO SCH ×2 (08:44→20:26)
[2019-03-31] MEDS: AmLODIPine BESYLATE 10 MG TABLET PO SCH (08:44)
[2019-03-31] MEDS: ASPIRIN 81 MG CHEWABLE TABLET PO SCH (08:45)
[2019-03-31] MEDS: PANTOPRAZOLE SODIUM 40 MG DR TABLET PO SCH (08:45)
[2019-03-31 11:10] VITALS: BP 118/80
[2019-03-31] MEDS ORDERED: DiphenhydrAMINE HCL 25 MG CAPSULE PO ONE (12:00)
[2019-03-31 15:42] VITALS: BP 110/75
[2019-03-31 19:38] VITALS: BP 138/98
[2019-03-31] MEDS: ATORVASTATIN CALCIUM 20 MG TABLET PO SCH (20:26)
[2019-04-01] VITALS (7 sets, daily range): BP systolic 113–136; BP diastolic 73–95
[2019-04-01] MEDS: ALBUTEROL SULFATE HFA 90 MCG/PUFF 8 GM INHALER IH SCH ×4 (06:41→23:29)
[2019-04-01] MEDS: DOCUSATE SODIUM 100 MG CAPSULE PO SCH ×2 (09:00→20:00)
[2019-04-01] MEDS: AmLODIPine BESYLATE 10 MG TABLET PO SCH (09:02)
[2019-04-01] MEDS: ASPIRIN 81 MG CHEWABLE TABLET PO SCH (09:03)
[2019-04-01] MEDS: PANTOPRAZOLE SODIUM 40 MG DR TABLET PO SCH (09:03)
[2019-04-01] MEDS: CARVEDILOL 6.25 MG TABLET PO SCH ×2 (09:03→20:00)
[2019-04-01] MEDS: HEPARIN SODIUM,PORCINE 5,000 UNITS/ML VIAL SQ SCH ×3 (09:16→23:29)
[2019-04-01 12:10] LABS: BASOPHILS % (AUTO) 1.1 % (0.0-2.0); EOSINOPHILS % (AUTO) 0.8 % (1.0-6.0); HEMATOCRIT 40.1 % (41-53); LYMPHOCYTES # (AUTO) 1.1 K/uL (1.0-4.8); LYMPHOCYTES % (AUTO) 17.3 % (22.0-44.0); MEAN CORPUSCULAR HEMOGLOBIN 31.6 pg (26.0-34.0); MEAN CORPUSCULAR HGB CONC 32.5 G/dL (31.0-37.0); MEAN CORPUSCULAR VOLUME 97 fL (80-100); MONOCYTES # (AUTO) 0.8 K/uL (0.1-1.0); MONOCYTES % (AUTO) 12.6 % (2.0-9.0); NEUTROPHILS # (AUTO) 4.3 K/uL (1.8-7.7); NEUTROPHILS % (AUTO) 68.2 % (40.0-70.0); PLATELET COUNT (AUTO) 193 K/uL (150-450); RED BLOOD CELL COUNT(AUTO) 4.13 MIL/uL (4.50-5.90); RED CELL DISTRIBUTION WIDTH 15.2 % (11.5-14.5)
[2019-04-01 12:20] LABS: ALBUMIN 3.2 g/dL (3.4-5.0); BILIRUBIN,TOTAL 0.4 mg/dL (0.1-1.0); CALCIUM, TOTAL 6.7 mg/dL (8.8-10.5); CREATININE 9.33 mg/dL (0.60-1.30); POTASSIUM 4.5 mmol/L (3.5-5.1); TOTAL PROTEIN, SERUM 7.5 g/dL (6.4-8.2)
[2019-04-01] MEDS ORDERED: DiphenhydrAMINE HCL 50 MG/ML VIAL IVP ONE (16:15)
[2019-04-01] MEDS: ATORVASTATIN CALCIUM 20 MG TABLET PO SCH (20:00)
[2019-04-02 04:18] VITALS: BP 144/99
[2019-04-02] MEDS: ALBUTEROL SULFATE HFA 90 MCG/PUFF 8 GM INHALER IH SCH ×4 (06:13→23:19)
[2019-04-02 07:16] LABS: EOSINOPHILS % (AUTO) 1.6 % (1.0-6.0); HEMATOCRIT 35.8 % (41-53); HEMOGLOBIN 12.2 g/dL (13.5-17.5); LYMPHOCYTES # (AUTO) 1.2 K/uL (1.0-4.8); LYMPHOCYTES % (AUTO) 22.2 % (22.0-44.0); MEAN CORPUSCULAR HEMOGLOBIN 32.8 pg (26.0-34.0); MEAN CORPUSCULAR HGB CONC 34.2 G/dL (31.0-37.0); MEAN CORPUSCULAR VOLUME 96 fL (80-100); MONOCYTES # (AUTO) 0.9 K/uL (0.1-1.0); MONOCYTES % (AUTO) 16.2 % (2.0-9.0); NEUTROPHILS # (AUTO) 3.1 K/uL (1.8-7.7); PLATELET COUNT (AUTO) 191 K/uL (150-450); RED BLOOD CELL COUNT(AUTO) 3.73 MIL/uL (4.50-5.90)
[2019-04-02 07:22] VITALS: BP 136/72
[2019-04-02 07:39] LABS: CALCIUM, TOTAL 6.5 mg/dL (8.8-10.5); CREATININE 9.06 mg/dL (0.60-1.30); POTASSIUM 4.7 mmol/L (3.5-5.1)
[2019-04-02] MEDS: HEPARIN SODIUM,PORCINE 5,000 UNITS/ML VIAL SQ SCH ×3 (08:24→23:19)
[2019-04-02] MEDS: CARVEDILOL 6.25 MG TABLET PO SCH ×2 (08:24→20:01)
[2019-04-02] MEDS: AmLODIPine BESYLATE 10 MG TABLET PO SCH (08:24)
[2019-04-02] MEDS: ASPIRIN 81 MG CHEWABLE TABLET PO SCH (08:24)
[2019-04-02] MEDS: DOCUSATE SODIUM 100 MG CAPSULE PO SCH ×2 (08:24→20:02)
[2019-04-02] MEDS: PANTOPRAZOLE SODIUM 40 MG DR TABLET PO SCH (08:25)
[2019-04-02] MEDS: PARICALCITOL 5 MCG/1 ML VIAL IVP SCH (10:56)
[2019-04-02 11:41] VITALS: BP 105/75
[2019-04-02 16:25] VITALS: BP 128/81
[2019-04-02] MEDS: ATORVASTATIN CALCIUM 20 MG TABLET PO SCH (20:02)
[2019-04-02 20:04] VITALS: BP 151/100
[2019-04-02 23:30] VITALS: BP 136/96
[2019-04-03 05:29] VITALS: BP 137/96
[2019-04-03] MEDS: ALBUTEROL SULFATE HFA 90 MCG/PUFF 8 GM INHALER IH SCH ×3 (05:53→17:58)
[2019-04-03 06:47] LABS: BASOPHILS % (AUTO) 1.1 % (0.0-2.0); EOSINOPHILS % (AUTO) 1.3 % (1.0-6.0); HEMATOCRIT 36.9 % (41-53); HEMOGLOBIN 12.3 g/dL (13.5-17.5); LYMPHOCYTES # (AUTO) 1.2 K/uL (1.0-4.8); LYMPHOCYTES % (AUTO) 22.1 % (22.0-44.0); MEAN CORPUSCULAR HEMOGLOBIN 32.2 pg (26.0-34.0); MEAN CORPUSCULAR HGB CONC 33.2 G/dL (31.0-37.0); MEAN CORPUSCULAR VOLUME 97 fL (80-100); MONOCYTES # (AUTO) 0.7 K/uL (0.1-1.0); MONOCYTES % (AUTO) 13.7 % (2.0-9.0); NEUTROPHILS # (AUTO) 3.3 K/uL (1.8-7.7); NEUTROPHILS % (AUTO) 61.8 % (40.0-70.0); PLATELET COUNT (AUTO) 209 K/uL (150-450); RED BLOOD CELL COUNT(AUTO) 3.81 MIL/uL (4.50-5.90)
[2019-04-03 07:18] LABS: ALBUMIN 3.1 g/dL (3.4-5.0); BILIRUBIN,TOTAL 0.3 mg/dL (0.1-1.0); CALCIUM, TOTAL 7.9 mg/dL (8.8-10.5); CREATININE 8.77 mg/dL (0.60-1.30); POTASSIUM 5.2 mmol/L (3.5-5.1); TOTAL PROTEIN, SERUM 7.3 g/dL (6.4-8.2)
[2019-04-03 07:30] VITALS: BP 142/93
[2019-04-03] MEDS: DOCUSATE SODIUM 100 MG CAPSULE PO SCH ×2 (07:58→20:35)
[2019-04-03] MEDS: HEPARIN SODIUM,PORCINE 5,000 UNITS/ML VIAL SQ SCH ×2 (07:58→15:48)
[2019-04-03] MEDS: PANTOPRAZOLE SODIUM 40 MG DR TABLET PO SCH (07:59)
[2019-04-03] MEDS: ASPIRIN 81 MG CHEWABLE TABLET PO SCH (07:59)
[2019-04-03] MEDS ORDERED: ALPRAZolam 0.25 MG TABLET PO PRN (11:45)
[2019-04-03] MEDS: CARVEDILOL 6.25 MG TABLET PO SCH ×2 (15:48→20:35)
[2019-04-03] MEDS: AmLODIPine BESYLATE 10 MG TABLET PO SCH (15:48)
[2019-04-03 19:50] VITALS: BP 145/99
[2019-04-03] MEDS: ATORVASTATIN CALCIUM 20 MG TABLET PO SCH (20:35)
[2019-04-03] MEDS: HYDROCODONE/ACETAMINOPHEN 5-325 MG TABLET PO PRN (20:42)
[2019-04-04] MEDS: HEPARIN SODIUM,PORCINE 5,000 UNITS/ML VIAL SQ SCH ×3 (00:14→15:30)
[2019-04-04 00:28] VITALS: BP 127/81
[2019-04-04] MEDS: HYDROCODONE/ACETAMINOPHEN 5-325 MG TABLET PO PRN (04:44)
[2019-04-04] MEDS: ALBUTEROL SULFATE HFA 90 MCG/PUFF 8 GM INHALER IH SCH ×3 (06:20→12:00)
[2019-04-04 06:53] LABS: BASOPHILS % (AUTO) 0.9 % (0.0-2.0); HEMATOCRIT 39.7 % (41-53); HEMOGLOBIN 13.1 g/dL (13.5-17.5); LYMPHOCYTES # (AUTO) 1.4 K/uL (1.0-4.8); LYMPHOCYTES % (AUTO) 24.8 % (22.0-44.0); MEAN CORPUSCULAR HEMOGLOBIN 31.8 pg (26.0-34.0); MEAN CORPUSCULAR HGB CONC 33.1 G/dL (31.0-37.0); MEAN CORPUSCULAR VOLUME 96 fL (80-100); MONOCYTES # (AUTO) 0.6 K/uL (0.1-1.0); MONOCYTES % (AUTO) 10.7 % (2.0-9.0); NEUTROPHILS # (AUTO) 3.6 K/uL (1.8-7.7); NEUTROPHILS % (AUTO) 62.6 % (40.0-70.0); PLATELET COUNT (AUTO) 211 K/uL (150-450); RED BLOOD CELL COUNT(AUTO) 4.13 MIL/uL (4.50-5.90); RED CELL DISTRIBUTION WIDTH 14.5 % (11.5-14.5)
[2019-04-04 07:00] LABS: CALCIUM, TOTAL 8.1 mg/dL (8.8-10.5); CREATININE 5.54 mg/dL (0.60-1.30); POTASSIUM 4.5 mmol/L (3.5-5.1)
[2019-04-04 07:21] VITALS: BP 150/93
[2019-04-04] MEDS: AmLODIPine BESYLATE 10 MG TABLET PO SCH (07:58)
[2019-04-04] MEDS: ASPIRIN 81 MG CHEWABLE TABLET PO SCH (07:58)
[2019-04-04] MEDS: DOCUSATE SODIUM 100 MG CAPSULE PO SCH (07:58)
[2019-04-04] MEDS: PARICALCITOL 5 MCG/1 ML VIAL IVP SCH (07:58)
[2019-04-04] MEDS: PANTOPRAZOLE SODIUM 40 MG DR TABLET PO SCH (07:58)
[2019-04-04] MEDS: CARVEDILOL 6.25 MG TABLET PO SCH (07:58)
[2019-04-04 10:47] VITALS: BP 124/90
== END 2019-04-04 18:45 | disposition left against medical advice (07) | DRG 425 ==
LOC: EMS 16:30 → 5S 20:22
PROVIDERS: ADMIT Internal Medicine; ATTEND Internal Medicine
PROC: 5A1D70Z Performance of Urinary Filtration, Intermittent, Less than 6 Hours Per Day (ICD-10-PCS; principal; 2019-03-31)
PROC: 5A1D70Z Performance of Urinary Filtration, Intermittent, Less than 6 Hours Per Day (ICD-10-PCS; 2019-04-02)
DX: E87.5 Hyperkalemia (principal); G93.41 Metabolic encephalopathy; E46 Unspecified protein-calorie malnutrition; R64 Cachexia; E87.2 Acidosis; N18.6 End stage renal disease; E83.51 Hypocalcemia; N25.81 Secondary hyperparathyroidism of renal origin; Z68.23 Body mass index [BMI] 23.0-23.9, adult; Z99.2 Dependence on renal dialysis; D63.8 Anemia in other chronic diseases classified elsewhere; E78.5 Hyperlipidemia, unspecified; E83.39 Other disorders of phosphorus metabolism; E87.1 Hypo-osmolality and hyponatremia; G89.4 Chronic pain syndrome; I13.11 Hypertensive heart and chronic kidney disease without heart failure, with stage 5 chronic kidney disease, or end stage renal disease; I16.0 Hypertensive urgency; J45.909 Unspecified asthma, uncomplicated; K21.9 Gastro-esophageal reflux disease without esophagitis; R32 Unspecified urinary incontinence; R62.7 Adult failure to thrive; Z82.49 Family history of ischemic heart disease and other diseases of the circulatory system; Z86.73 Personal history of transient ischemic attack (TIA), and cerebral infarction without residual deficits; Z91.15 Patient's noncompliance with renal dialysis; Z91.19 Patient's noncompliance with other medical treatment and regimen; Z79.899 Other long term (current) drug therapy; Z53.29 Procedure and treatment not carried out because of patient's decision for other reasons
CPT/HCPCS: 87081; 93005; 97110; 97116; 97162; 97167; 97530; G0480; J1200; J1644; J2501; J3490; J3535; J7030

== ENCOUNTER 2019-04-06 19:47 | Emergency (ER) | payer OTHER ==
[~2019-04-06] VITALS: Ht 170.2 cm; Wt 68.2 kg
[2019-04-06 20:44] LABS: BASOPHILS % (AUTO) 0.8 % (0.0-2.0); HEMATOCRIT 40.8 % (41-53); HEMOGLOBIN 13.2 g/dL (13.5-17.5); LYMPHOCYTES # (AUTO) 1.1 K/uL (1.0-4.8); LYMPHOCYTES % (AUTO) 15.4 % (22.0-44.0); MEAN CORPUSCULAR HEMOGLOBIN 31.4 pg (26.0-34.0); MEAN CORPUSCULAR HGB CONC 32.3 G/dL (31.0-37.0); MEAN CORPUSCULAR VOLUME 97 fL (80-100); MONOCYTES # (AUTO) 1.2 K/uL (0.1-1.0); MONOCYTES % (AUTO) 16.8 % (2.0-9.0); NEUTROPHILS # (AUTO) 4.5 K/uL (1.8-7.7); PLATELET COUNT (AUTO) 217 K/uL (150-450); RED CELL DISTRIBUTION WIDTH 14.7 % (11.5-14.5)
[2019-04-06 20:55] LABS: CALCIUM, TOTAL 8.3 mg/dL (8.8-10.5); CREATININE 4.37 mg/dL (0.60-1.30); POTASSIUM 4.3 mmol/L (3.5-5.1)
[2019-04-06 21:01] LABS: ALBUMIN 3.4 g/dL (3.4-5.0); BILIRUBIN,TOTAL 0.2 mg/dL (0.1-1.0); TOTAL PROTEIN, SERUM 8.3 g/dL (6.4-8.2)
[2019-04-06] MEDS ORDERED: HYDROCODONE/ACETAMINOPHEN 5-325 MG TABLET PO ONE (21:30)
[2019-04-06 22:27] VITALS: BP 122/78
== END 2019-04-06 22:42 | disposition home or self-care (01) ==
LOC: EMS 19:48
DX: J44.9 Chronic obstructive pulmonary disease, unspecified (principal); I12.0 Hypertensive chronic kidney disease with stage 5 chronic kidney disease or end stage renal disease; N18.6 End stage renal disease; J45.909 Unspecified asthma, uncomplicated; Z99.2 Dependence on renal dialysis; Z87.891 Personal history of nicotine dependence; Z86.73 Personal history of transient ischemic attack (TIA), and cerebral infarction without residual deficits; Z79.82 Long term (current) use of aspirin
CPT/HCPCS: 93005

== ENCOUNTER 2019-08-24 08:19 | Inpatient (IN) | payer OTHER ==
[~2019-08-24] VITALS: Ht 175.3 cm; Wt 81.0 kg
[~2019-08-24 08:19] MED LIST changes: +ASPI-728 PO; -ASPI81 PO
[2019-08-24 09:58] LABS: BASOPHILS % (AUTO) 0.6 % (0.0-2.0); EOSINOPHILS % (AUTO) 1.3 % (1.0-6.0); HEMATOCRIT 34.6 % (41-53); HEMOGLOBIN 11.3 g/dL (13.5-17.5); LYMPHOCYTES # (AUTO) 1.4 K/uL (1.0-4.8); MEAN CORPUSCULAR HGB CONC 32.7 G/dL (31.0-37.0); MEAN CORPUSCULAR VOLUME 95 fL (80-100); MONOCYTES # (AUTO) 0.5 K/uL (0.1-1.0); MONOCYTES % (AUTO) 10.1 % (2.0-9.0); NEUTROPHILS # (AUTO) 2.9 K/uL (1.8-7.7); PLATELET COUNT (AUTO) 227 K/uL (150-450); RED BLOOD CELL COUNT(AUTO) 3.65 MIL/uL (4.50-5.90); RED CELL DISTRIBUTION WIDTH 14.5 % (11.5-14.5)
[2019-08-24 10:14] LABS: CALCIUM, TOTAL 8.8 mg/dL (8.8-10.5); CREATININE 4.71 mg/dL (0.60-1.30); POTASSIUM 4.3 mmol/L (3.5-5.1)
[2019-08-24] MEDS ORDERED: HydrALAZINE HCL 20 MG/ML VIAL IVP ONE (10:15)
[2019-08-24] MEDS ORDERED: ACETAMINOPHEN 325 MG TABLET PO PRN (10:30)
[2019-08-24] MEDS ORDERED: BISACODYL 10 MG RECTAL RECTAL SUPPOSITORY PR PRN (10:30)
[2019-08-24] MEDS: ATORVASTATIN CALCIUM 20 MG TABLET PO SCH (11:17)
[2019-08-24] MEDS: AmLODIPine BESYLATE 10 MG TABLET PO SCH (11:17)
[2019-08-24] MEDS: ASPIRIN 81 MG CHEWABLE TABLET PO SCH (11:17)
[2019-08-24] MEDS: OxyCODONE HCL/ACETAMINOPHEN 5-325 MG TABLET PO PRN (12:31)
[2019-08-24] MEDS: CloNIDine HCL 0.1 MG TABLET PO PRN (12:37)
[2019-08-24 16:23] VITALS: BP 126/82
[2019-08-24] MEDS: HEPARIN SODIUM,PORCINE 5,000 UNITS/ML VIAL SQ SCH (20:19)
[2019-08-24] MEDS: DOCUSATE SODIUM 100 MG CAPSULE PO SCH (20:19)
[2019-08-24 20:49] VITALS: BP 149/95
[2019-08-25 00:19] VITALS: BP 159/98
[2019-08-25 04:26] VITALS: BP 142/99
[2019-08-25] MEDS: DOCUSATE SODIUM 100 MG CAPSULE PO SCH (08:56)
[2019-08-25] MEDS: ASPIRIN 81 MG CHEWABLE TABLET PO SCH (08:56)
[2019-08-25] MEDS: HEPARIN SODIUM,PORCINE 5,000 UNITS/ML VIAL SQ SCH (08:57)
[2019-08-25] MEDS: AmLODIPine BESYLATE 10 MG TABLET PO SCH (08:57)
[2019-08-25] MEDS: ATORVASTATIN CALCIUM 20 MG TABLET PO SCH (08:57)
[2019-08-25] MEDS ORDERED: FAMOTIDINE 20 MG TABLET PO SCH (09:00)
[2019-08-25 09:13] LABS: CALCIUM, TOTAL 8.8 mg/dL (8.8-10.5); CREATININE 5.57 mg/dL (0.60-1.30); POTASSIUM 4.6 mmol/L (3.5-5.1)
[2019-08-25 10:03] VITALS: BP 175/113
[2019-08-25] MEDS: CloNIDine HCL 0.1 MG TABLET PO PRN (10:06)
[2019-08-25 11:37] VITALS: BP 123/84
[2019-08-25] MEDS: OxyCODONE HCL/ACETAMINOPHEN 5-325 MG TABLET PO PRN (13:08)
[2019-08-25 15:38] VITALS: BP 139/91
== END 2019-08-25 19:30 | disposition home or self-care (01) | DRG 203 ==
LOC: EMS 08:21 → 5S 13:38
PROVIDERS: ADMIT Internal Medicine; ATTEND Internal Medicine
DX: R07.89 Other chest pain (principal); R64 Cachexia; E46 Unspecified protein-calorie malnutrition; E83.51 Hypocalcemia; E83.39 Other disorders of phosphorus metabolism; I13.11 Hypertensive heart and chronic kidney disease without heart failure, with stage 5 chronic kidney disease, or end stage renal disease; E87.2 Acidosis; E87.5 Hyperkalemia; N18.6 End stage renal disease; D63.8 Anemia in other chronic diseases classified elsewhere; N25.81 Secondary hyperparathyroidism of renal origin; R62.7 Adult failure to thrive; E78.5 Hyperlipidemia, unspecified; F17.200 Nicotine dependence, unspecified, uncomplicated; F41.9 Anxiety disorder, unspecified; F79 Unspecified intellectual disabilities; G47.00 Insomnia, unspecified; G89.4 Chronic pain syndrome; K21.9 Gastro-esophageal reflux disease without esophagitis; J44.9 Chronic obstructive pulmonary disease, unspecified; Z99.2 Dependence on renal dialysis; Z82.49 Family history of ischemic heart disease and other diseases of the circulatory system; Z86.73 Personal history of transient ischemic attack (TIA), and cerebral infarction without residual deficits; Z79.82 Long term (current) use of aspirin; Z79.899 Other long term (current) drug therapy; Z91.14 Patient's other noncompliance with medication regimen; Z68.26 Body mass index [BMI] 26.0-26.9, adult
CPT/HCPCS: 87081; 93005; 99291; J1644

== ENCOUNTER 2019-11-02 12:58 | Emergency (ER) | payer OTHER ==
[~2019-11-02] VITALS: Ht 177.8 cm; Wt 63.6 kg
[~2019-11-02 12:58] MED LIST changes: +PANT-31 PO; -PANT40TA25 PO
[2019-11-02 14:53] LABS: BASOPHILS % (AUTO) 1.6 % (0.0-2.0); HEMATOCRIT 27.6 % (41-53); HEMOGLOBIN 9.3 g/dL (13.5-17.5); LYMPHOCYTES # (AUTO) 1.4 K/uL (1.0-4.8); LYMPHOCYTES % (AUTO) 20.1 % (22.0-44.0); MEAN CORPUSCULAR HEMOGLOBIN 32.3 pg (26.0-34.0); MEAN CORPUSCULAR HGB CONC 33.7 G/dL (31.0-37.0); MEAN CORPUSCULAR VOLUME 96 fL (80-100); MONOCYTES # (AUTO) 0.6 K/uL (0.1-1.0); MONOCYTES % (AUTO) 9.5 % (2.0-9.0); NEUTROPHILS # (AUTO) 4.6 K/uL (1.8-7.7); NEUTROPHILS % (AUTO) 67.8 % (40.0-70.0); PLATELET COUNT (AUTO) 250 K/uL (150-450); RED BLOOD CELL COUNT(AUTO) 2.88 MIL/uL (4.50-5.90); RED CELL DISTRIBUTION WIDTH 13.9 % (11.5-14.5)
[2019-11-02 15:04] LABS: CALCIUM, TOTAL 8.8 mg/dL (8.8-10.5); CREATININE 12.39 mg/dL (0.60-1.30)
[2019-11-02 15:07] LABS: ALBUMIN 4.1 g/dL (3.4-5.0); BILIRUBIN,TOTAL 0.5 mg/dL (0.1-1.0); TOTAL PROTEIN, SERUM 9.1 g/dL (6.4-8.2)
[2019-11-02 17:29] VITALS: BP 179/116
[2019-11-02] MEDS ORDERED: AmLODIPine BESYLATE 5 MG TABLET PO ONE (17:30)
== END 2019-11-02 17:42 | disposition home or self-care (01) ==
LOC: EDUNIT# 12:58 → EMS 13:01
DX: M54.5 Low back pain (principal); I12.0 Hypertensive chronic kidney disease with stage 5 chronic kidney disease or end stage renal disease; N18.6 End stage renal disease; F17.210 Nicotine dependence, cigarettes, uncomplicated; Z99.2 Dependence on renal dialysis; Z79.82 Long term (current) use of aspirin
CPT/HCPCS: 72100; 72170; 93005

== ENCOUNTER 2020-04-08 16:54 | Emergency (ER) | payer OTHER ==
[~2020-04-08] VITALS: Ht 180.3 cm; Wt 77.3 kg
[~2020-04-08 16:54] MED LIST changes: +AMLO-258 PO; -AMLO10TA7 PO; +LEVO750T68 PO
[2020-04-08 18:32] LABS: BASOPHILS % (AUTO) 0.9 % (0.0-2.0); EOSINOPHILS % (AUTO) 2.1 % (1.0-6.0); HEMATOCRIT 32.6 % (41-53); HEMOGLOBIN 10.8 g/dL (13.5-17.5); LYMPHOCYTES # (AUTO) 1.2 K/uL (1.0-4.8); MEAN CORPUSCULAR HEMOGLOBIN 32.1 pg (26.0-34.0); MEAN CORPUSCULAR VOLUME 97 fL (80-100); MONOCYTES # (AUTO) 0.7 K/uL (0.1-1.0); MONOCYTES % (AUTO) 15.2 % (2.0-9.0); NEUTROPHILS # (AUTO) 2.6 K/uL (1.8-7.7); NEUTROPHILS % (AUTO) 55.8 % (40.0-70.0); PLATELET COUNT (AUTO) 191 K/uL (150-450); RED BLOOD CELL COUNT(AUTO) 3.36 MIL/uL (4.50-5.90); RED CELL DISTRIBUTION WIDTH 16.1 % (11.5-14.5)
[2020-04-08 18:47] LABS: CALCIUM, TOTAL 8.5 mg/dL (8.8-10.5); CREATININE 4.74 mg/dL (0.60-1.30); POTASSIUM 4.2 mmol/L (3.5-5.1)
[2020-04-08 18:56] LABS: ALBUMIN 3.8 g/dL (3.4-5.0); BILIRUBIN,TOTAL 0.3 mg/dL (0.1-1.0); LACTIC ACID 1.5 mmol/L (0.4-2.0); TOTAL PROTEIN, SERUM 8.2 g/dL (6.4-8.2)
[2020-04-08] MEDS ORDERED: HYDROCODONE/ACETAMINOPHEN 5-325 MG TABLET PO ONE (19:15)
[2020-04-08] MEDS ORDERED: CEPHALEXIN MONOHYDRATE 500 MG CAPSULE PO ONE (21:00)
[2020-04-08] MEDS ORDERED: AmLODIPine BESYLATE 5 MG TABLET PO ONE (21:15)
[2020-04-08] MEDS ORDERED: CloNIDine HCL 0.1 MG TABLET PO ONE (21:45)
[2020-04-08 21:52] VITALS: BP 158/108
== END 2020-04-08 22:47 | disposition home or self-care (01) ==
LOC: EMS 16:54
DX: N18.6 End stage renal disease (principal); M79.602 Pain in left arm; Z99.2 Dependence on renal dialysis; F17.210 Nicotine dependence, cigarettes, uncomplicated; I10 Essential (primary) hypertension; Z79.899 Other long term (current) drug therapy
CPT/HCPCS: 83605; 87040; 93971

== ENCOUNTER 2023-12-02 16:50 | Inpatient (IN) | payer OTHER ==
[~2023-12-02] VITALS: Ht 175.3 cm; Wt 66.0 kg
[~2023-12-02 16:50] MED LIST changes: +ALBU18HF12 IH; -ALBU8HFA PUFF; +ASPI-1450 PO; -ASPI-728 PO; +ATOR20TA PO; -ATOR20TA86 PO; +CLON0.1T2 PO; -LEVO750T68 PO
[2023-12-02] MEDS: NiCARDipine HCL 25 MG in SODIUM CHLORIDE 0.9% 240 ML IV PRN (17:15)
[2023-12-02] MEDS: HydrALAZINE HCL 20 MG/ML VIAL IVP ONE (17:15)
[2023-12-02] MEDS: LABETALOL HCL 5 MG/ML 20 ML VIAL IVP ONE (17:16)
[2023-12-02] MEDS: NITROGLYCERIN 0.4 MG SUBLINGUAL TABLET #25 SL ONE (17:16)
[2023-12-02] MEDS: NITROGLYCERIN 2% (1 GM=INCH) OINTMENT PACKET TP ONE (17:16)
[2023-12-02 17:27] LABS: BASOPHILS % (AUTO) 0.6 % (0.0-2.0); HEMATOCRIT 36.3 % (41-53); HEMOGLOBIN 11.5 g/dL (13.5-17.5); LYMPHOCYTES % (AUTO) 36.9 % (22.0-44.0); MEAN CORPUSCULAR HEMOGLOBIN 31.1 pg (26.0-34.0); MEAN CORPUSCULAR HGB CONC 31.6 G/dL (31.0-37.0); MEAN CORPUSCULAR VOLUME 98 fL (80-100); MONOCYTES # (AUTO) 0.7 K/uL (0.1-1.0); MONOCYTES % (AUTO) 8.1 % (2.0-9.0); NEUTROPHILS # (AUTO) 4.4 K/uL (1.8-7.7); NEUTROPHILS % (AUTO) 53.4 % (40.0-70.0); PLATELET COUNT (AUTO) 242 K/uL (150-450); RED CELL DISTRIBUTION WIDTH 16.8 % (11.5-14.5); WHITE BLOOD COUNT (AUTO) 8.2 K/uL (4.5-11.0)
[2023-12-02 17:36] LABS: ANION GAP 15 mmol/L (8-16); CALCIUM, TOTAL 7.4 mg/dL (8.8-10.5); CARBON DIOXIDE 24 mmol/L (22-29); CHLORIDE 98 mmol/L (98-107); CREATININE 9.59 mg/dL (0.60-1.30); GLOMERULAR FILTR. RATE CALC 7 mL/min (>60); GLUCOSE,RANDOM 140 mg/dL (70-110); POTASSIUM 4.9 mmol/L (3.5-5.1); SODIUM SERUM 137 mmol/L (136-145)
[2023-12-02 17:38] LABS: LIPASE 126 U/L (16-77)
[2023-12-02 17:43] LABS: UREA NITROGEN, BLOOD 107 mg/dL (7-18)
[2023-12-02 17:44] LABS: TROPONIN I-HIGH SENSITIVITY 28 ng/L (<76)
[2023-12-02 17:45] LABS: LACTIC ACID 2.9 mmol/L (0.4-2.0)
[2023-12-02 17:50] VITALS: PULSE 107; RESP 16; O2SAT 99
[2023-12-02] MEDS ORDERED: PROPOFOL 1000 MG/ISO-OSM 100 ML ONE (17:52)
[2023-12-02 18:00] LABS: B-TYPE NATRIURETIC PEPTIDE 2400 pg/mL (0-100)
[2023-12-02] MEDS: PROPOFOL 1000 MG/ISO-OSM 100 ML IV PRN (19:00)
[2023-12-02 19:17] LABS: ABG BASE EXCESS -7.9 mmol/L (-2.0-3.0); ABG CARBOXYHEMOGLOBIN 1.1 % (0.0-1.5); ABG HCO3 18.2 mmol/L (22.0-26.0); ABG METHEMOGLOBIN 0.6 % (0.0-1.5); ABG OXYGEN CONTENT 18.3 mL/dL (15.0-23.0); ABG OXYGEN SATURATION 99.7 % (95.0-98.0); ABG PCO2 48 mmHg (35-45); ABG TOTAL HEMOGLOBIN 12.6 G/dL (12.0-18.0); PO2, ARTERIAL BG 346.4 mmHg (79.0-87.0); SOURCE, BLOOD GAS ARTERIAL; TEMPERATURE, FAHRENHEIT, BG 98.6 FAHREN (96.0-98.6)
[2023-12-02 19:18] LABS: ALLEN TEST, BLOOD GAS Positive; SITE, BLOOD GAS RT RADIAL
[2023-12-02 19:19] LABS: O2 DEVICE,BLOOD GAS VENTILATOR (ROOM AIR); PEEP,BG 5 cm H2O; SPONTANEOUS VT, BG 520 ml; VT, ABG 450 ml
[2023-12-02 19:30] VITALS: PULSE 118; RESP 20; O2SAT 99
[2023-12-02] MEDS ORDERED: CefTRIAXone 1 GM/DEXTROSE 50 ML IV ONE (19:51)
[2023-12-02] MEDS: CefTRIAXone 1 GM/DEXTROSE 50 ML IV ONE (19:52)
[2023-12-02 19:56] LABS: COVID AG,FIA SOURCE NASAL SWAB
[2023-12-02 20:22] LABS: SARS-COV2 (COVID) ANTIGEN,FIA Negative (Negative)
[2023-12-02 20:23] LABS: INFLUENZA TYPE A NEGATIVE FOR TYPE A (NEGATIVE); INFLUENZA TYPE B NEGATIVE FOR TYPE B (NEGATIVE)
[2023-12-02] MEDS: LORazepam 2 MG/ML VIAL IVP ONE (21:33)
[2023-12-02] MEDS ORDERED: VECURONIUM BROMIDE 10 MG/VIAL ONE (21:42)
[2023-12-02] MEDS: FentaNYL CIT 1000MCG/0.9% NACL 100 ML IV PRN (21:49)
[2023-12-02] MEDS: VECURONIUM BROMIDE 10 MG/VIAL IVP ONE (21:49)
[2023-12-02 22:01] VITALS: PULSE 85; RESP 16; O2SAT 99
[2023-12-02] MEDS ORDERED: BISACODYL 10 MG RECTAL RECTAL SUPPOSITORY PR PRN (22:45)
[2023-12-02] MEDS ORDERED: HYDROCODONE/ACETAMINOPHEN 5-325 MG TABLET PO PRN (22:45)
[2023-12-02] MEDS ORDERED: MORPHINE SULFATE 2 MG/ML SYRINGE IVP PRN (22:45)
[2023-12-02] MEDS ORDERED: ALBUTEROL SULFATE 2.5 MG/0.5 ML NEB SOLUTION NEB PRN (22:45)
[2023-12-02] MEDS ORDERED: ONDANSETRON HCL 4 MG/2 ML VIAL IVP PRN (22:45)
[2023-12-02] MEDS ORDERED: IPRATROPIUM BROMIDE 0.5 MG/2.5 ML NEB SOLUTION NEB PRN (22:45)
[2023-12-02] MEDS ORDERED: ZOLPIDEM TARTRATE 5 MG TABLET PO PRN (22:45)
[2023-12-02] MEDS: PANTOPRAZOLE SODIUM 40 MG/VIAL IVP SCH (23:00)
[2023-12-03] VITALS (21 sets, daily range): BP systolic 94–157; BP diastolic 64–98; PULSE 51–73; RESP 12–18; TEMP 95.1–98.1; O2SAT 93–100
[2023-12-03] MEDS: HEPARIN SODIUM,PORCINE 5,000 UNITS/ML VIAL SQ SCH (00:49)
[2023-12-03 05:52] LABS: CALCIUM, TOTAL 6.8 mg/dL (8.8-10.5); CREATININE 11.31 mg/dL (0.60-1.30); MAGNESIUM 2.2 mg/dL (1.80-2.40); POTASSIUM 4.7 mmol/L (3.5-5.1)
[2023-12-03 05:58] LABS: BASOPHILS % (AUTO) 0.2 % (0.0-2.0); EOSINOPHILS % (AUTO) 0.7 % (1.0-6.0); HEMOGLOBIN 10.3 g/dL (13.5-17.5); LYMPHOCYTES # (AUTO) 1.2 K/uL (1.0-4.8); MEAN CORPUSCULAR HEMOGLOBIN 31.4 pg (26.0-34.0); MEAN CORPUSCULAR HGB CONC 32.1 G/dL (31.0-37.0); MEAN CORPUSCULAR VOLUME 98 fL (80-100); MONOCYTES # (AUTO) 0.9 K/uL (0.1-1.0); NEUTROPHILS # (AUTO) 6.2 K/uL (1.8-7.7); NEUTROPHILS % (AUTO) 74.1 % (40.0-70.0); PLATELET COUNT (AUTO) 205 K/uL (150-450); RED BLOOD CELL COUNT(AUTO) 3.26 MIL/uL (4.50-5.90); RED CELL DISTRIBUTION WIDTH 16.8 % (11.5-14.5); WHITE BLOOD COUNT (AUTO) 8.4 K/uL (4.5-11.0)
[2023-12-03 06:22] LABS: PHOSPHORUS 7.4 mg/dL (2.5-4.9)
[2023-12-03] MEDS: CloNIDine HCL 0.1 MG TABLET NG SCH (08:08)
[2023-12-03] MEDS: AmLODIPine BESYLATE 10 MG TABLET NG SCH (08:08)
[2023-12-03] MEDS: CARVEDILOL 6.25 MG TABLET NG SCH (08:08)
[2023-12-03] MEDS: EPOETIN ALFA 10,000 UNITS/ML VIAL SQ SCH (08:08)
[2023-12-03] MEDS: ASPIRIN 81 MG CHEWABLE TABLET NG SCH (08:08)
[2023-12-03] MEDS: PARICALCITOL 5 MCG/1 ML VIAL IVP SCH (08:09)
[2023-12-03] MEDS ORDERED: SODIUM CHLORIDE 0.9% 250 ML IV ONE (10:34)
[2023-12-03] MEDS: LevETIRAcetam 500 MG in DEXTROSE 5%-WATER 100 ML IV SCH (10:49)
[2023-12-03] MEDS: CefTRIAXone SODIUM 2 GM in DEXTROSE 5%-WATER 50 ML IV SCH (12:15)
[2023-12-03] MEDS: DOXYCYCLINE HYCLATE 100 MG in DEXTROSE 5%-WATER 100 ML IV SCH (12:16)
[2023-12-03] MEDS: FentaNYL CIT 1000MCG/0.9% NACL 100 ML IV PRN (15:01)
[2023-12-03 16:14] LABS: ABG BASE EXCESS -4.1 mmol/L (-2.0-3.0); ABG CARBOXYHEMOGLOBIN 1.7 % (0.0-1.5); ABG HCO3 21.2 mmol/L (22.0-26.0); ABG METHEMOGLOBIN 0.3 % (0.0-1.5); ABG OXYGEN CONTENT 16.6 mL/dL (15.0-23.0); ABG OXYGEN SATURATION 97.4 % (95.0-98.0); ABG OXYHEMOGLOBIN 95.5 % (94.0-100.0); ABG PCO2 42 mmHg (35-45); ABG PH 7.332 (7.35-7.450); ABG TOTAL HEMOGLOBIN 12.3 G/dL (12.0-18.0); ALLEN TEST, BLOOD GAS Positive; O2 DEVICE,BLOOD GAS VENTILATOR (ROOM AIR); PEEP,BG 5 cm H2O; PO2, ARTERIAL BG 96.4 mmHg (79.0-87.0); SITE, BLOOD GAS RT RADIAL; SOURCE, BLOOD GAS ARTERIAL; SPONTANEOUS VT, BG 461 ml; TEMPERATURE, FAHRENHEIT, BG 97.6 FAHREN (96.0-98.6); VT, ABG 450 ml
[2023-12-03] MEDS: ATORVASTATIN CALCIUM 20 MG TABLET NG SCH (20:13)
[2023-12-04] VITALS (14 sets, daily range): BP systolic 111–163; BP diastolic 76–101; PULSE 49–59; RESP 16–20; TEMP 97.9–98.7; O2SAT 95–100
[2023-12-04 05:39] LABS: CALCIUM, TOTAL 7.8 mg/dL (8.8-10.5); MAGNESIUM 2.1 mg/dL (1.80-2.40); PHOSPHORUS 7.2 mg/dL (2.5-4.9); POTASSIUM 4.8 mmol/L (3.5-5.1)
[2023-12-04 05:46] LABS: BASOPHILS % (AUTO) 0.3 % (0.0-2.0); EOSINOPHILS % (AUTO) 1.7 % (1.0-6.0); HEMATOCRIT 35.3 % (41-53); HEMOGLOBIN 11.4 g/dL (13.5-17.5); LYMPHOCYTES # (AUTO) 0.5 K/uL (1.0-4.8); LYMPHOCYTES % (AUTO) 13.4 % (22.0-44.0); MEAN CORPUSCULAR HEMOGLOBIN 31.3 pg (26.0-34.0); MEAN CORPUSCULAR HGB CONC 32.2 G/dL (31.0-37.0); MEAN CORPUSCULAR VOLUME 97 fL (80-100); MONOCYTES # (AUTO) 0.8 K/uL (0.1-1.0); MONOCYTES % (AUTO) 20.2 % (2.0-9.0); NEUTROPHILS # (AUTO) 2.5 K/uL (1.8-7.7); NEUTROPHILS % (AUTO) 64.4 % (40.0-70.0); PLATELET COUNT (AUTO) 184 K/uL (150-450); RED BLOOD CELL COUNT(AUTO) 3.63 MIL/uL (4.50-5.90); RED CELL DISTRIBUTION WIDTH 16.5 % (11.5-14.5)
[2023-12-04 06:08] LABS: WHITE BLOOD COUNT (AUTO) 3.9 K/uL (4.5-11.0)
[2023-12-04] MEDS: DEXMEDETOMIDINE HCL 400 MCG in SODIUM CHLORIDE 0.9% 96 ML IV PRN (09:27)
[2023-12-04 15:27] LABS: ABG BASE EXCESS -2.7 mmol/L (-2.0-3.0); ABG HCO3 22.3 mmol/L (22.0-26.0); ABG METHEMOGLOBIN 0.3 % (0.0-1.5); ABG OXYGEN CONTENT 15.5 mL/dL (15.0-23.0); ABG OXYGEN SATURATION 93.7 % (95.0-98.0); ABG OXYHEMOGLOBIN 92.5 % (94.0-100.0); ABG PCO2 41 mmHg (35-45); ABG PH 7.363 (7.35-7.450); ABG TOTAL HEMOGLOBIN 11.9 G/dL (12.0-18.0); SOURCE, BLOOD GAS ARTERIAL; TEMPERATURE, FAHRENHEIT, BG 98.5 FAHREN (96.0-98.6)
[2023-12-04 15:32] LABS: ALLEN TEST, BLOOD GAS Positive; O2 DEVICE,BLOOD GAS VENTILATOR (ROOM AIR); PEEP,BG 0 cm H2O; PRESSURE SUPPORT, BG 8 cm H2O; SITE, BLOOD GAS LFT RADIAL; SPONTANEOUS VT, BG 810 ml; VENT MODE, BG SPONTANEOUS (ROOM AIR)
[2023-12-04] MEDS ORDERED: SODIUM CHLORIDE 0.9% 250 ML IV ONE (15:34)
[2023-12-05] VITALS (23 sets, daily range): BP systolic 97–155; BP diastolic 58–108; PULSE 45–62; RESP 16–28; TEMP 95.5–98.2; O2SAT 30–100
[2023-12-05 10:22] LABS: ABG BASE EXCESS -6.4 mmol/L (-2.0-3.0); ABG CARBOXYHEMOGLOBIN 0.9 % (0.0-1.5); ABG HCO3 19.5 mmol/L (22.0-26.0); ABG METHEMOGLOBIN 0.3 % (0.0-1.5); ABG OXYGEN SATURATION 96.3 % (95.0-98.0); ABG OXYHEMOGLOBIN 95.1 % (94.0-100.0); ABG PCO2 40 mmHg (35-45); ABG PH 7.311 (7.35-7.450); ABG TOTAL HEMOGLOBIN 11.9 G/dL (12.0-18.0); PO2, ARTERIAL BG 88.7 mmHg (79.0-87.0); SOURCE, BLOOD GAS ARTERIAL; TEMPERATURE, FAHRENHEIT, BG 96.5 FAHREN (96.0-98.6)
[2023-12-05 10:24] LABS: ALLEN TEST, BLOOD GAS Positive; SITE, BLOOD GAS RT RADIAL
[2023-12-05 10:25] LABS: CPAP, BG 5 cm H2O; O2 DEVICE,BLOOD GAS VENTILATOR (ROOM AIR); PRESSURE SUPPORT, BG 8 cm H2O; SPONTANEOUS VT, BG 519 ml; VENT MODE, BG CPAP (ROOM AIR)
[2023-12-05] MEDS: LORazepam 2 MG/ML VIAL IVP PRN (10:38)
[2023-12-05] MEDS ORDERED: SODIUM CHLORIDE 0.9% 1,000 ML ONE (13:12)
[2023-12-05 15:30] LABS: BASOPHILS % (AUTO) 0.4 % (0.0-2.0); EOSINOPHILS % (AUTO) 0.8 % (1.0-6.0); HEMATOCRIT 34.6 % (41-53); HEMOGLOBIN 11.2 g/dL (13.5-17.5); LYMPHOCYTES # (AUTO) 0.6 K/uL (1.0-4.8); MEAN CORPUSCULAR HGB CONC 32.3 G/dL (31.0-37.0); MEAN CORPUSCULAR VOLUME 96 fL (80-100); MONOCYTES # (AUTO) 0.6 K/uL (0.1-1.0); MONOCYTES % (AUTO) 13.2 % (2.0-9.0); NEUTROPHILS # (AUTO) 3.4 K/uL (1.8-7.7); NEUTROPHILS % (AUTO) 73.6 % (40.0-70.0); PLATELET COUNT (AUTO) 171 K/uL (150-450); WHITE BLOOD COUNT (AUTO) 4.6 K/uL (4.5-11.0)
[2023-12-05 15:39] LABS: CALCIUM, TOTAL 7.7 mg/dL (8.8-10.5); CREATININE 6.04 mg/dL (0.60-1.30); POTASSIUM 3.5 mmol/L (3.5-5.1)
[2023-12-06] VITALS (15 sets, daily range): BP systolic 97–130; BP diastolic 50–89; PULSE 43–76; RESP 16; TEMP 97.2–98.4; O2SAT 35–100
[2023-12-06 07:37] LABS: CALCIUM, TOTAL 7.8 mg/dL (8.8-10.5); CREATININE 8.14 mg/dL (0.60-1.30); POTASSIUM 4.6 mmol/L (3.5-5.1)
[2023-12-06] MEDS: QUEtiapine FUMARATE 25 MG TABLET PO SCH (09:25)
[2023-12-06 11:14] LABS: BASOPHILS % (AUTO) 0.2 % (0.0-2.0); EOSINOPHILS % (AUTO) 0.7 % (1.0-6.0); HEMATOCRIT 34.7 % (41-53); HEMOGLOBIN 11.2 g/dL (13.5-17.5); LYMPHOCYTES # (AUTO) 0.3 K/uL (1.0-4.8); LYMPHOCYTES % (AUTO) 8.5 % (22.0-44.0); MEAN CORPUSCULAR HGB CONC 32.3 G/dL (31.0-37.0); MEAN CORPUSCULAR VOLUME 96 fL (80-100); MONOCYTES # (AUTO) 0.6 K/uL (0.1-1.0); MONOCYTES % (AUTO) 15.5 % (2.0-9.0); NEUTROPHILS # (AUTO) 2.8 K/uL (1.8-7.7); NEUTROPHILS % (AUTO) 75.1 % (40.0-70.0); PLATELET COUNT (AUTO) 180 K/uL (150-450); RED BLOOD CELL COUNT(AUTO) 3.61 MIL/uL (4.50-5.90); RED CELL DISTRIBUTION WIDTH 15.8 % (11.5-14.5); WHITE BLOOD COUNT (AUTO) 3.7 K/uL (4.5-11.0)
[2023-12-07] VITALS (23 sets, daily range): BP systolic 95–171; BP diastolic 51–90; PULSE 56–92; RESP 15–24; TEMP 95.8–99; O2SAT 95–100
[2023-12-07] MEDS: MAGNESIUM HYDROXIDE SUSPENSION 30 ML UDCUP PO PRN (01:29)
[2023-12-07 05:49] LABS: BASOPHILS % (AUTO) 0.3 % (0.0-2.0); EOSINOPHILS % (AUTO) 1.2 % (1.0-6.0); HEMATOCRIT 32.6 % (41-53); HEMOGLOBIN 10.6 g/dL (13.5-17.5); LYMPHOCYTES # (AUTO) 0.6 K/uL (1.0-4.8); LYMPHOCYTES % (AUTO) 13.6 % (22.0-44.0); MEAN CORPUSCULAR HEMOGLOBIN 31.5 pg (26.0-34.0); MEAN CORPUSCULAR HGB CONC 32.6 G/dL (31.0-37.0); MEAN CORPUSCULAR VOLUME 97 fL (80-100); MONOCYTES # (AUTO) 0.7 K/uL (0.1-1.0); MONOCYTES % (AUTO) 17.4 % (2.0-9.0); NEUTROPHILS # (AUTO) 2.8 K/uL (1.8-7.7); NEUTROPHILS % (AUTO) 67.5 % (40.0-70.0); PLATELET COUNT (AUTO) 176 K/uL (150-450); RED BLOOD CELL COUNT(AUTO) 3.38 MIL/uL (4.50-5.90); RED CELL DISTRIBUTION WIDTH 15.9 % (11.5-14.5); WHITE BLOOD COUNT (AUTO) 4.2 K/uL (4.5-11.0)
[2023-12-07 06:10] LABS: CALCIUM, TOTAL 7.4 mg/dL (8.8-10.5); POTASSIUM 3.9 mmol/L (3.5-5.1)
[2023-12-07] MEDS: DOCUSATE SODIUM 100 MG/10 ML LIQUID UDCUP NG SCH (10:22)
[2023-12-07] MEDS: QUEtiapine FUMARATE 25 MG TABLET PO SCH (10:22)
[2023-12-08] VITALS (13 sets, daily range): BP systolic 90–141; BP diastolic 57–84; PULSE 64–100; RESP 16–20; TEMP 98.1–100.7; O2SAT 98–100
[2023-12-08 17:41] LABS: BASOPHILS % (AUTO) 0.1 % (0.0-2.0); EOSINOPHILS % (AUTO) 0.8 % (1.0-6.0); HEMATOCRIT 33.1 % (41-53); HEMOGLOBIN 10.6 g/dL (13.5-17.5); LYMPHOCYTES # (AUTO) 0.4 K/uL (1.0-4.8); MEAN CORPUSCULAR HEMOGLOBIN 30.9 pg (26.0-34.0); MEAN CORPUSCULAR HGB CONC 31.9 G/dL (31.0-37.0); MEAN CORPUSCULAR VOLUME 97 fL (80-100); MONOCYTES # (AUTO) 0.9 K/uL (0.1-1.0); MONOCYTES % (AUTO) 20.9 % (2.0-9.0); NEUTROPHILS # (AUTO) 3.1 K/uL (1.8-7.7); NEUTROPHILS % (AUTO) 69.2 % (40.0-70.0); PLATELET COUNT (AUTO) 178 K/uL (150-450); RED BLOOD CELL COUNT(AUTO) 3.41 MIL/uL (4.50-5.90); RED CELL DISTRIBUTION WIDTH 16.2 % (11.5-14.5); WHITE BLOOD COUNT (AUTO) 4.4 K/uL (4.5-11.0)
[2023-12-08 17:46] LABS: CALCIUM, TOTAL 7.7 mg/dL (8.8-10.5); CREATININE 9.38 mg/dL (0.60-1.30); POTASSIUM 4.2 mmol/L (3.5-5.1)
[2023-12-08 18:00] LABS: RBC MORPHOLOGY COMMENT NORMAL RBC MORPH
[2023-12-09] VITALS (14 sets, daily range): BP systolic 90–150; BP diastolic 60–74; PULSE 72–109; RESP 16–32; TEMP 98.3–100.9; O2SAT 95–100
[2023-12-09 05:34] LABS: BASOPHILS % (AUTO) 0.1 % (0.0-2.0); HEMATOCRIT 32.2 % (41-53); HEMOGLOBIN 10.4 g/dL (13.5-17.5); LYMPHOCYTES # (AUTO) 0.6 K/uL (1.0-4.8); LYMPHOCYTES % (AUTO) 13.7 % (22.0-44.0); MEAN CORPUSCULAR HEMOGLOBIN 31.2 pg (26.0-34.0); MEAN CORPUSCULAR HGB CONC 32.2 G/dL (31.0-37.0); MEAN CORPUSCULAR VOLUME 97 fL (80-100); MONOCYTES # (AUTO) 1.1 K/uL (0.1-1.0); MONOCYTES % (AUTO) 25.9 % (2.0-9.0); NEUTROPHILS # (AUTO) 2.4 K/uL (1.8-7.7); NEUTROPHILS % (AUTO) 59.3 % (40.0-70.0); PLATELET COUNT (AUTO) 173 K/uL (150-450); RED BLOOD CELL COUNT(AUTO) 3.32 MIL/uL (4.50-5.90); RED CELL DISTRIBUTION WIDTH 16.2 % (11.5-14.5); WHITE BLOOD COUNT (AUTO) 4.1 K/uL (4.5-11.0)
[2023-12-09 05:55] LABS: CREATININE 9.88 mg/dL (0.60-1.30); POTASSIUM 4.4 mmol/L (3.5-5.1)
[2023-12-09 11:08] LABS: ABG BASE EXCESS -11.2 mmol/L (-2.0-3.0); ABG CARBOXYHEMOGLOBIN 0.8 % (0.0-1.5); ABG HCO3 15.7 mmol/L (22.0-26.0); ABG METHEMOGLOBIN 0.6 % (0.0-1.5); ABG OXYGEN CONTENT 15.7 mL/dL (15.0-23.0); ABG OXYGEN SATURATION 96.7 % (95.0-98.0); ABG OXYHEMOGLOBIN 95.3 % (94.0-100.0); ABG PCO2 54 mmHg (35-45); ABG TOTAL HEMOGLOBIN 11.6 G/dL (12.0-18.0); SOURCE, BLOOD GAS ARTERIAL; TEMPERATURE, FAHRENHEIT, BG 100.4 FAHREN (96.0-98.6)
[2023-12-09 11:13] LABS: ABG A-A DIFF O2 74.5 mmHg (10-20.0); ALLEN TEST, BLOOD GAS Positive; O2 DEVICE,BLOOD GAS VENTILATOR (ROOM AIR); PEEP,BG 5 cm H2O; PRESSURE SUPPORT, BG 8 cm H2O; SITE, BLOOD GAS RT RADIAL; SPONTANEOUS VT, BG 636 ml; VENT MODE, BG SPONTANEOUS (ROOM AIR)
[2023-12-09] MEDS ORDERED: SODIUM CHLORIDE 0.9% 250 ML IV ONE (14:10)
[2023-12-09] MEDS: ETHYL ALCOHOL 62% ANTISEPTIC NASAL SANITIZER 0.6 ML AMPUL NASAL SCH (20:47)
[2023-12-10] VITALS (21 sets, daily range): BP systolic 97–145; BP diastolic 51–75; PULSE 72–99; RESP 16–27; TEMP 96–98.3; O2SAT 95–100
[2023-12-10 03:57] LABS: C.DIFF GDH ANTIGEN, Stool Negative (Negative); C.DIFF TOXINS A&B, Stool Negative (Negative)
[2023-12-10 06:11] LABS: CALCIUM, TOTAL 7.8 mg/dL (8.8-10.5); CREATININE 11.73 mg/dL (0.60-1.30); POTASSIUM 4.6 mmol/L (3.5-5.1)
[2023-12-10 06:37] LABS: HEMATOCRIT 30.9 % (41-53); HEMOGLOBIN 9.9 g/dL (13.5-17.5); MEAN CORPUSCULAR HEMOGLOBIN 31.3 pg (26.0-34.0); MEAN CORPUSCULAR HGB CONC 32.1 G/dL (31.0-37.0); MEAN CORPUSCULAR VOLUME 98 fL (80-100); PLATELET COUNT (AUTO) 181 K/uL (150-450); RED BLOOD CELL COUNT(AUTO) 3.16 MIL/uL (4.50-5.90); RED CELL DISTRIBUTION WIDTH 16.5 % (11.5-14.5); WHITE BLOOD COUNT (AUTO) 4.8 K/uL (4.5-11.0)
[2023-12-10] MEDS: SODIUM CHLORIDE 0.9% 250 ML IV ONE (07:36)
[2023-12-10 08:02] LABS: BAND NEUTROPHILS % (MANUAL) 16 % (0-5); EOSINOPHILS % (MANUAL) 1 % (1-6); LYMPHOCYTES % (MANUAL) 20 % (22-44); MONOCYTES % (MANUAL) 3 % (2-9); RBC MORPHOLOGY COMMENT NORMAL RBC MORPH; SEGMENTED NEUTROPHILS % 60 % (40-70); TOTAL CELLS COUNTED 100
[2023-12-10] MEDS: HydrALAZINE HCL 20 MG/ML VIAL IVP PRN (08:41)
[2023-12-10] MEDS ORDERED: SODIUM CHLORIDE 0.9% 1,000 ML ONE ×2 (11:26→15:09)
[2023-12-10] MEDS ORDERED: HEPARIN SODIUM,PORCINE 1,000 UNITS/ML VIAL IVP ONE (12:00)
[2023-12-10] MEDS: METOCLOPRAMIDE HCL 5 MG/ML 2 ML VIAL IVP SCH (23:49)
[2023-12-11] VITALS (15 sets, daily range): BP systolic 111–190; BP diastolic 53–96; PULSE 92–121; RESP 17–36; TEMP 98–101.8; O2SAT 96–99
[2023-12-11 06:16] LABS: CALCIUM, TOTAL 8.1 mg/dL (8.8-10.5); CREATININE 9.49 mg/dL (0.60-1.30); POTASSIUM 4.7 mmol/L (3.5-5.1)
[2023-12-11 06:17] LABS: BASOPHILS % (AUTO) 0.2 % (0.0-2.0); EOSINOPHILS % (AUTO) 0.8 % (1.0-6.0); HEMATOCRIT 31.1 % (41-53); LYMPHOCYTES # (AUTO) 0.7 K/uL (1.0-4.8); LYMPHOCYTES % (AUTO) 8.6 % (22.0-44.0); MEAN CORPUSCULAR HEMOGLOBIN 31.1 pg (26.0-34.0); MEAN CORPUSCULAR VOLUME 97 fL (80-100); MONOCYTES # (AUTO) 1.7 K/uL (0.1-1.0); NEUTROPHILS # (AUTO) 5.6 K/uL (1.8-7.7); NEUTROPHILS % (AUTO) 69.4 % (40.0-70.0); PLATELET COUNT (AUTO) 200 K/uL (150-450); RED BLOOD CELL COUNT(AUTO) 3.21 MIL/uL (4.50-5.90); RED CELL DISTRIBUTION WIDTH 16.2 % (11.5-14.5); WHITE BLOOD COUNT (AUTO) 8.1 K/uL (4.5-11.0)
[2023-12-11 11:52] LABS: SOURCE, BLOOD GAS ARTERIAL; TEMPERATURE, FAHRENHEIT, BG 98.3 FAHREN (96.0-98.6)
[2023-12-11 11:54] LABS: ABG BASE EXCESS -12.7 mmol/L (-2.0-3.0); ABG CARBOXYHEMOGLOBIN 1.1 % (0.0-1.5); ABG METHEMOGLOBIN 0.7 % (0.0-1.5); ABG OXYGEN CONTENT 14.1 mL/dL (15.0-23.0); ABG OXYGEN SATURATION 96.2 % (95.0-98.0); ABG OXYHEMOGLOBIN 94.5 % (94.0-100.0); ABG PCO2 39 mmHg (35-45); ABG TOTAL HEMOGLOBIN 10.5 G/dL (12.0-18.0)
[2023-12-11 11:55] LABS: ABG PH 7.206 (7.35-7.450); ALLEN TEST, BLOOD GAS Positive; O2 DEVICE,BLOOD GAS VENTILATOR (ROOM AIR); SITE, BLOOD GAS RT RADIAL; VENT MODE, BG SPONTANEOUS (ROOM AIR)
[2023-12-11 11:56] LABS: PEEP,BG 0 cm H2O; PRESSURE SUPPORT, BG 8 cm H2O; SPONTANEOUS VT, BG 505 ml
[2023-12-11] MEDS: CloNIDine HCL 0.1 MG TABLET PO PRN (15:54)
[2023-12-12] VITALS (22 sets, daily range): BP systolic 104–157; BP diastolic 57–103; PULSE 48–104; RESP 13–29; TEMP 96.4–98.8; O2SAT 94–100
[2023-12-12 06:18] LABS: EOSINOPHILS % (AUTO) 1.1 % (1.0-6.0); HEMATOCRIT 29.6 % (41-53); HEMOGLOBIN 9.7 g/dL (13.5-17.5); LYMPHOCYTES % (AUTO) 11.2 % (22.0-44.0); MEAN CORPUSCULAR HEMOGLOBIN 31.3 pg (26.0-34.0); MEAN CORPUSCULAR HGB CONC 32.7 G/dL (31.0-37.0); MEAN CORPUSCULAR VOLUME 96 fL (80-100); MONOCYTES # (AUTO) 1.8 K/uL (0.1-1.0); MONOCYTES % (AUTO) 21.2 % (2.0-9.0); NEUTROPHILS # (AUTO) 5.7 K/uL (1.8-7.7); NEUTROPHILS % (AUTO) 66.5 % (40.0-70.0); PLATELET COUNT (AUTO) 217 K/uL (150-450); RED BLOOD CELL COUNT(AUTO) 3.09 MIL/uL (4.50-5.90); RED CELL DISTRIBUTION WIDTH 16.1 % (11.5-14.5); WHITE BLOOD COUNT (AUTO) 8.6 K/uL (4.5-11.0)
[2023-12-12 06:26] LABS: CALCIUM, TOTAL 8.1 mg/dL (8.8-10.5); CREATININE 11.03 mg/dL (0.60-1.30); POTASSIUM 4.4 mmol/L (3.5-5.1)
[2023-12-12] MEDS ORDERED: SODIUM CHLORIDE 0.9% 2,000 ML ONE (07:22)
[2023-12-12] MEDS ORDERED: SODIUM CHLORIDE 0.9% 250 ML IV ONE (10:10)
[2023-12-12] MEDS: ALBUMIN HUMAN 25%-12.5GM/50ML 50 ML IV ONE (12:46)
[2023-12-12 16:37] LABS: ABG BASE EXCESS -3.2 mmol/L (-2.0-3.0); ABG CARBOXYHEMOGLOBIN 0.4 % (0.0-1.5); ABG HCO3 21.8 mmol/L (22.0-26.0); ABG METHEMOGLOBIN 0.4 % (0.0-1.5); ABG OXYGEN CONTENT 14.5 mL/dL (15.0-23.0); ABG OXYGEN SATURATION 98.2 % (95.0-98.0); ABG OXYHEMOGLOBIN 97.4 % (94.0-100.0); ABG PCO2 44 mmHg (35-45); ABG TOTAL HEMOGLOBIN 10.4 G/dL (12.0-18.0); SOURCE, BLOOD GAS ARTERIAL
[2023-12-12 16:38] LABS: ABG A-A DIFF O2 80.6 mmHg (10-20.0); ALLEN TEST, BLOOD GAS Positive; CPAP, BG 5 cm H2O; O2 DEVICE,BLOOD GAS VENTILATOR (ROOM AIR); PRESSURE SUPPORT, BG 8 cm H2O; SITE, BLOOD GAS RT RADIAL; SPONTANEOUS VT, BG 586 ml; VENT MODE, BG CPAP (ROOM AIR)
[2023-12-13] VITALS (22 sets, daily range): BP systolic 106–187; BP diastolic 65–96; PULSE 22–104; RESP 16–32; TEMP 97–98.6; O2SAT 96–100
[2023-12-13 00:19] LABS: C.DIFF GDH ANTIGEN, Stool Negative (Negative); C.DIFF TOXINS A&B, Stool Negative (Negative)
[2023-12-13 07:12] LABS: BASOPHILS % (AUTO) 0.1 % (0.0-2.0); EOSINOPHILS % (AUTO) 0.6 % (1.0-6.0); HEMATOCRIT 30.1 % (41-53); HEMOGLOBIN 9.8 g/dL (13.5-17.5); LYMPHOCYTES # (AUTO) 0.8 K/uL (1.0-4.8); LYMPHOCYTES % (AUTO) 10.2 % (22.0-44.0); MEAN CORPUSCULAR HEMOGLOBIN 31.4 pg (26.0-34.0); MEAN CORPUSCULAR HGB CONC 32.7 G/dL (31.0-37.0); MEAN CORPUSCULAR VOLUME 96 fL (80-100); MONOCYTES # (AUTO) 1.9 K/uL (0.1-1.0); NEUTROPHILS # (AUTO) 4.9 K/uL (1.8-7.7); NEUTROPHILS % (AUTO) 64.1 % (40.0-70.0); PLATELET COUNT (AUTO) 209 K/uL (150-450); RED BLOOD CELL COUNT(AUTO) 3.14 MIL/uL (4.50-5.90); RED CELL DISTRIBUTION WIDTH 16.3 % (11.5-14.5); WHITE BLOOD COUNT (AUTO) 7.6 K/uL (4.5-11.0)
[2023-12-13 07:28] LABS: ALBUMIN 2.3 g/dL (3.4-5.0); BILIRUBIN,TOTAL 0.5 mg/dL (0.1-1.0); CREATININE 8.26 mg/dL (0.60-1.30); POTASSIUM 3.4 mmol/L (3.5-5.1); TOTAL PROTEIN, SERUM 7.4 g/dL (6.4-8.2)
[2023-12-13] MEDS ORDERED: SODIUM CHLORIDE 0.9% 1,000 ML ONE ×2 (14:59)
[2023-12-13 15:23] LABS: ABG BASE EXCESS -7.2 mmol/L (-2.0-3.0); ABG CARBOXYHEMOGLOBIN 0.5 % (0.0-1.5); ABG METHEMOGLOBIN 0.3 % (0.0-1.5); ABG OXYGEN CONTENT 15.6 mL/dL (15.0-23.0); ABG OXYGEN SATURATION 98.3 % (95.0-98.0); ABG OXYHEMOGLOBIN 97.5 % (94.0-100.0); ABG PCO2 39 mmHg (35-45); ABG PH 7.307 (7.35-7.450); ABG TOTAL HEMOGLOBIN 11.2 G/dL (12.0-18.0); PO2, ARTERIAL BG 118.1 mmHg (79.0-87.0); SOURCE, BLOOD GAS ARTERIAL; TEMPERATURE, FAHRENHEIT, BG 98.2 FAHREN (96.0-98.6)
[2023-12-13 15:24] LABS: ALLEN TEST, BLOOD GAS Positive; O2 DEVICE,BLOOD GAS VENTILATOR (ROOM AIR); PEEP,BG 5 cm H2O; PRESSURE SUPPORT, BG 0 cm H2O; SITE, BLOOD GAS RT RADIAL; SPONTANEOUS VT, BG 530 ml; VENT MODE, BG Press. Support Vent. (ROOM AIR)
[2023-12-14] VITALS (23 sets, daily range): BP systolic 98–143; BP diastolic 47–92; PULSE 25–98; RESP 10–27; TEMP 97–98.9; O2SAT 9–100
[2023-12-14 05:58] LABS: BASOPHILS % (AUTO) 0.1 % (0.0-2.0); EOSINOPHILS % (AUTO) 0.8 % (1.0-6.0); HEMATOCRIT 27.9 % (41-53); HEMOGLOBIN 9.2 g/dL (13.5-17.5); LYMPHOCYTES # (AUTO) 0.9 K/uL (1.0-4.8); LYMPHOCYTES % (AUTO) 11.1 % (22.0-44.0); MEAN CORPUSCULAR HEMOGLOBIN 31.5 pg (26.0-34.0); MEAN CORPUSCULAR VOLUME 96 fL (80-100); MONOCYTES # (AUTO) 1.7 K/uL (0.1-1.0); MONOCYTES % (AUTO) 20.5 % (2.0-9.0); NEUTROPHILS # (AUTO) 5.5 K/uL (1.8-7.7); NEUTROPHILS % (AUTO) 67.5 % (40.0-70.0); PLATELET COUNT (AUTO) 203 K/uL (150-450); RED BLOOD CELL COUNT(AUTO) 2.92 MIL/uL (4.50-5.90); RED CELL DISTRIBUTION WIDTH 15.5 % (11.5-14.5); WHITE BLOOD COUNT (AUTO) 8.1 K/uL (4.5-11.0)
[2023-12-14 06:00] LABS: ALBUMIN 2.1 g/dL (3.4-5.0); BILIRUBIN,TOTAL 0.5 mg/dL (0.1-1.0); CALCIUM, TOTAL 7.8 mg/dL (8.8-10.5); CREATININE 6.8 mg/dL (0.60-1.30); TOTAL PROTEIN, SERUM 6.7 g/dL (6.4-8.2)
[2023-12-14 06:14] LABS: POTASSIUM 2.9 mmol/L (3.5-5.1)
[2023-12-14] MEDS: POTASSIUM CHL 10 MEQ/WATER 50 ML IV SCH (06:57)
[2023-12-14] MEDS ORDERED: SODIUM CHLORIDE 0.9% 1,000 ML ONE (10:26)
[2023-12-14] MEDS ORDERED: ALBUMIN HUMAN 25%-12.5GM/50ML IV BOTTLE IV ONE (17:38)
[2023-12-14 19:19] LABS: ABG BASE EXCESS 1.5 mmol/L (-2.0-3.0); ABG CARBOXYHEMOGLOBIN 0.5 % (0.0-1.5); ABG HCO3 25.6 mmol/L (22.0-26.0); ABG OXYGEN CONTENT 14.4 mL/dL (15.0-23.0); ABG OXYGEN SATURATION 98.8 % (95.0-98.0); ABG OXYHEMOGLOBIN 97.3 % (94.0-100.0); ABG PCO2 44 mmHg (35-45); ABG PH 7.396 (7.35-7.450); ABG TOTAL HEMOGLOBIN 10.4 G/dL (12.0-18.0); PO2, ARTERIAL BG 120.8 mmHg (79.0-87.0); SOURCE, BLOOD GAS ARTERIAL; TEMPERATURE, FAHRENHEIT, BG 98.7 FAHREN (96.0-98.6)
[2023-12-14 19:20] LABS: ABG A-A DIFF O2 77.5 mmHg (10-20.0); ALLEN TEST, BLOOD GAS Positive; O2 DEVICE,BLOOD GAS VENT (ROOM AIR); PEEP,BG 0 cm H2O; PRESSURE SUPPORT, BG 8 cm H2O; SITE, BLOOD GAS RT RADIAL; VENT MODE, BG CPAP (ROOM AIR)
[2023-12-15] VITALS (15 sets, daily range): BP systolic 100–169; BP diastolic 43–103; PULSE 73–106; RESP 16–30; TEMP 98.4–99.8; O2SAT 97–100
[2023-12-15] MEDS: ACETAMINOPHEN 325 MG TABLET PO PRN (04:13)
[2023-12-15 09:03] LABS: ALBUMIN 2.6 g/dL (3.4-5.0); BILIRUBIN,TOTAL 0.4 mg/dL (0.1-1.0); CALCIUM, TOTAL 8.7 mg/dL (8.8-10.5); CREATININE 6.01 mg/dL (0.60-1.30); POTASSIUM 3.6 mmol/L (3.5-5.1); TOTAL PROTEIN, SERUM 7.7 g/dL (6.4-8.2)
[2023-12-15 09:18] LABS: ABG A-A DIFF O2 75.3 mmHg (10-20.0); ABG CARBOXYHEMOGLOBIN 0.6 % (0.0-1.5); ABG HCO3 24.2 mmol/L (22.0-26.0); ABG OXYGEN CONTENT 14.7 mL/dL (15.0-23.0); ABG OXYGEN SATURATION 98.5 % (95.0-98.0); ABG OXYHEMOGLOBIN 97.9 % (94.0-100.0); ABG PCO2 49 mmHg (35-45); ABG TOTAL HEMOGLOBIN 10.5 G/dL (12.0-18.0); ALLEN TEST, BLOOD GAS Positive; CPAP, BG 0 cm H2O; O2 DEVICE,BLOOD GAS VENTILATOR (ROOM AIR); PO2, ARTERIAL BG 117.7 mmHg (79.0-87.0); PRESSURE SUPPORT, BG 8 cm H2O; SITE, BLOOD GAS RT RADIAL; SOURCE, BLOOD GAS ARTERIAL; SPONTANEOUS VT, BG 443 ml; TEMPERATURE, FAHRENHEIT, BG 98.4 FAHREN (96.0-98.6); VENT MODE, BG CPAP (ROOM AIR)
[2023-12-15 09:44] LABS: BASOPHILS % (AUTO) 1.1 % (0.0-2.0); EOSINOPHILS % (AUTO) 0.6 % (1.0-6.0); HEMATOCRIT 28.6 % (41-53); HEMOGLOBIN 9.3 g/dL (13.5-17.5); LYMPHOCYTES # (AUTO) 0.8 K/uL (1.0-4.8); LYMPHOCYTES % (AUTO) 8.5 % (22.0-44.0); MEAN CORPUSCULAR HEMOGLOBIN 30.9 pg (26.0-34.0); MEAN CORPUSCULAR HGB CONC 32.3 G/dL (31.0-37.0); MEAN CORPUSCULAR VOLUME 96 fL (80-100); MONOCYTES # (AUTO) 1.5 K/uL (0.1-1.0); MONOCYTES % (AUTO) 17.1 % (2.0-9.0); NEUTROPHILS # (AUTO) 6.5 K/uL (1.8-7.7); NEUTROPHILS % (AUTO) 72.7 % (40.0-70.0); PLATELET COUNT (AUTO) 219 K/uL (150-450); RED BLOOD CELL COUNT(AUTO) 2.99 MIL/uL (4.50-5.90); RED CELL DISTRIBUTION WIDTH 16.3 % (11.5-14.5)
[2023-12-15] MEDS ORDERED: RACEPINEPHRINE HCL 2.25% 0.5 ML NEB SOLUTION NEB ONE (11:33)
[2023-12-15] MEDS: RACEPINEPHRINE HCL 2.25% 0.5 ML NEB SOLUTION NEB ONE (12:35)
[2023-12-15] MEDS ORDERED: 0.9% SODIUM CHLORIDE 5 ML NEB SOLUTION NEB ONE (13:00)
[2023-12-15] MEDS: MethylPREDNISolone SOD SUCC 40 MG/ML VIAL IVP SCH (13:12)
[2023-12-16] VITALS (26 sets, daily range): BP systolic 109–174; BP diastolic 62–111; PULSE 69–104; RESP 12–30; TEMP 97.8–98.8; O2SAT 90–100
[2023-12-16] MEDS ORDERED: SODIUM CHLORIDE 0.9% 1,000 ML ONE (05:12)
[2023-12-16 06:08] LABS: BASOPHILS % (AUTO) 0.1 % (0.0-2.0); EOSINOPHILS % (AUTO) 0 % (1.0-6.0); HEMATOCRIT 26.2 % (41-53); HEMOGLOBIN 8.3 g/dL (13.5-17.5); LYMPHOCYTES # (AUTO) 0.6 K/uL (1.0-4.8); LYMPHOCYTES % (AUTO) 6.9 % (22.0-44.0); MEAN CORPUSCULAR HEMOGLOBIN 31.7 pg (26.0-34.0); MEAN CORPUSCULAR HGB CONC 31.7 G/dL (31.0-37.0); MEAN CORPUSCULAR VOLUME 100 fL (80-100); MONOCYTES # (AUTO) 0.3 K/uL (0.1-1.0); MONOCYTES % (AUTO) 3.1 % (2.0-9.0); NEUTROPHILS # (AUTO) 8.4 K/uL (1.8-7.7); PLATELET COUNT (AUTO) 206 K/uL (150-450); RED BLOOD CELL COUNT(AUTO) 2.61 MIL/uL (4.50-5.90); RED CELL DISTRIBUTION WIDTH 16.7 % (11.5-14.5); WHITE BLOOD COUNT (AUTO) 9.4 K/uL (4.5-11.0)
[2023-12-16 06:35] LABS: ALBUMIN 2.1 g/dL (3.4-5.0); BILIRUBIN,TOTAL 0.2 mg/dL (0.1-1.0); CALCIUM, TOTAL 6.7 mg/dL (8.8-10.5); CREATININE 6.85 mg/dL (0.60-1.30); POTASSIUM 3.3 mmol/L (3.5-5.1); TOTAL PROTEIN, SERUM 6.3 g/dL (6.4-8.2)
[2023-12-16 06:53] LABS: NEUTROPHILS % (AUTO) 89.9 % (40.0-70.0)
[2023-12-16] MEDS ORDERED: DEXTROSE 50%-WATER 25 GM/50 ML SYRINGE IVP PRN (07:15)
[2023-12-16 07:35] LABS: GLUCOMETER DEV NAME(LOC) ICUN.5; GLUCOSE,POINT OF CARE 135 MG/DL (70-110)
[2023-12-16 12:40] LABS: GLUCOMETER DEV NAME(LOC) ICUN.5; GLUCOSE,POINT OF CARE 134 MG/DL (70-110)
[2023-12-16 16:43] LABS: CALCIUM, TOTAL 8.7 mg/dL (8.8-10.5); CREATININE 5.48 mg/dL (0.60-1.30); POTASSIUM 3.5 mmol/L (3.5-5.1)
[2023-12-16 16:49] LABS: ALBUMIN 2.6 g/dL (3.4-5.0); BILIRUBIN,TOTAL 0.4 mg/dL (0.1-1.0); TOTAL PROTEIN, SERUM 7.4 g/dL (6.4-8.2)
[2023-12-16 18:01] LABS: GLUCOMETER DEV NAME(LOC) ICUN.5; GLUCOSE,POINT OF CARE 117 MG/DL (70-110)
[2023-12-16] MEDS: INSULIN LISPRO 100 UNITS/ML SQ PRN (21:53)
[2023-12-16 23:50] LABS: GLUCOMETER DEV NAME(LOC) ICUN.5; GLUCOSE,POINT OF CARE 155 MG/DL (70-110)
[2023-12-17] VITALS (18 sets, daily range): BP systolic 128–178; BP diastolic 32–109; PULSE 63–80; RESP 13–28; TEMP 97.6–99.2; O2SAT 93–100
[2023-12-17] MEDS ORDERED: SODIUM CHLORIDE 0.9% 1,000 ML ONE (05:43)
[2023-12-17 06:35] LABS: GLUCOMETER DEV NAME(LOC) ICU.S6; GLUCOSE,POINT OF CARE 136 MG/DL (70-110)
[2023-12-17 08:32] LABS: BASOPHILS % (AUTO) 0.2 % (0.0-2.0); EOSINOPHILS % (AUTO) 0 % (1.0-6.0); HEMATOCRIT 32.5 % (41-53); HEMOGLOBIN 10.6 g/dL (13.5-17.5); LYMPHOCYTES # (AUTO) 1.1 K/uL (1.0-4.8); LYMPHOCYTES % (AUTO) 9.7 % (22.0-44.0); MEAN CORPUSCULAR HEMOGLOBIN 31.2 pg (26.0-34.0); MEAN CORPUSCULAR HGB CONC 32.6 G/dL (31.0-37.0); MEAN CORPUSCULAR VOLUME 96 fL (80-100); MONOCYTES # (AUTO) 0.8 K/uL (0.1-1.0); MONOCYTES % (AUTO) 7.2 % (2.0-9.0); NEUTROPHILS # (AUTO) 9.5 K/uL (1.8-7.7); NEUTROPHILS % (AUTO) 82.9 % (40.0-70.0); PLATELET COUNT (AUTO) 295 K/uL (150-450); RED CELL DISTRIBUTION WIDTH 16.4 % (11.5-14.5); WHITE BLOOD COUNT (AUTO) 11.5 K/uL (4.5-11.0)
[2023-12-17 08:45] LABS: ALBUMIN 2.6 g/dL (3.4-5.0); BILIRUBIN,TOTAL 0.4 mg/dL (0.1-1.0); CALCIUM, TOTAL 8.6 mg/dL (8.8-10.5); CREATININE 4.48 mg/dL (0.60-1.30); POTASSIUM 3.8 mmol/L (3.5-5.1); TOTAL PROTEIN, SERUM 7.7 g/dL (6.4-8.2)
[2023-12-17] MEDS ORDERED: SODIUM CHLORIDE 0.9% 250 ML IV ONE (10:30)
[2023-12-17 12:19] LABS: ABG BASE EXCESS 5.3 mmol/L (-2.0-3.0); ABG CARBOXYHEMOGLOBIN 0.6 % (0.0-1.5); ABG HCO3 28.9 mmol/L (22.0-26.0); ABG METHEMOGLOBIN 0.3 % (0.0-1.5); ABG OXYGEN CONTENT 14.9 mL/dL (15.0-23.0); ABG OXYGEN SATURATION 98.7 % (95.0-98.0); ABG OXYHEMOGLOBIN 97.8 % (94.0-100.0); ABG PCO2 44 mmHg (35-45); ABG PH 7.445 (7.35-7.450); ABG TOTAL HEMOGLOBIN 10.7 G/dL (12.0-18.0); PO2, ARTERIAL BG 119.4 mmHg (79.0-87.0); SOURCE, BLOOD GAS ARTERIAL
[2023-12-17 12:20] LABS: ALLEN TEST, BLOOD GAS Positive; O2 DEVICE,BLOOD GAS VENTILATOR (ROOM AIR); PEEP,BG 5 cm H2O; PRESSURE SUPPORT, BG 0 cm H2O; SITE, BLOOD GAS RT RADIAL; SPONTANEOUS VT, BG 415 ml; VENT MODE, BG Press. Support Vent. (ROOM AIR)
[2023-12-17 17:10] LABS: GLUCOMETER DEV NAME(LOC) ICUN.5; GLUCOSE,POINT OF CARE 144 MG/DL (70-110)
[2023-12-17 18:15] LABS: GLUCOMETER DEV NAME(LOC) ICU.S6; GLUCOSE,POINT OF CARE 138 MG/DL (70-110)
[2023-12-18] VITALS (7 sets, daily range): BP systolic 140–184; BP diastolic 77–97; PULSE 70–86; RESP 17–33; TEMP 98.3–99; O2SAT 90–98
[2023-12-18 00:11] LABS: GLUCOMETER DEV NAME(LOC) ICUN.5; GLUCOSE,POINT OF CARE 161 MG/DL (70-110)
[2023-12-18 05:57] LABS: HEMATOCRIT 35.8 % (41-53); HEMOGLOBIN 11.5 g/dL (13.5-17.5); MEAN CORPUSCULAR HEMOGLOBIN 30.9 pg (26.0-34.0); MEAN CORPUSCULAR HGB CONC 32.2 G/dL (31.0-37.0); MEAN CORPUSCULAR VOLUME 96 fL (80-100); PLATELET COUNT (AUTO) 345 K/uL (150-450); RED BLOOD CELL COUNT(AUTO) 3.72 MIL/uL (4.50-5.90)
[2023-12-18 06:10] LABS: ALBUMIN 2.8 g/dL (3.4-5.0); BILIRUBIN,TOTAL 0.5 mg/dL (0.1-1.0); CREATININE 5.64 mg/dL (0.60-1.30); POTASSIUM 4.1 mmol/L (3.5-5.1)
[2023-12-18 06:11] LABS: GLUCOMETER DEV NAME(LOC) ICUN.5; GLUCOSE,POINT OF CARE 138 MG/DL (70-110)
[2023-12-18 06:36] LABS: BAND NEUTROPHILS % (MANUAL) 0 % (0-5)
[2023-12-18 06:37] LABS: CORRECTED WHITE BLOOD COUNT 15.1 K/uL (4.5-11.0); LYMPHOCYTES % (MANUAL) 19 % (22-44); MONOCYTES % (MANUAL) 10 % (2-9); SEGMENTED NEUTROPHILS % 71 % (40-70); TOTAL CELLS COUNTED 100
[2023-12-18 06:38] LABS: WHITE BLOOD COUNT (AUTO) 15.1 K/uL (4.5-11.0)
[2023-12-18] MEDS ORDERED: SODIUM CHLORIDE 0.9% 250 ML IV ONE (09:48)
[2023-12-18 13:00] LABS: GLUCOMETER DEV NAME(LOC) ICU.S6; GLUCOSE,POINT OF CARE 112 MG/DL (70-110)
[2023-12-18 18:20] LABS: GLUCOMETER DEV NAME(LOC) ICU.S6; GLUCOSE,POINT OF CARE 109 MG/DL (70-110)
[2023-12-19] VITALS (18 sets, daily range): BP systolic 139–197; BP diastolic 86–114; PULSE 70–101; RESP 17–20; TEMP 97.2–99.1; O2SAT 90–100
[2023-12-19 05:30] LABS: GLUCOMETER DEV NAME(LOC) 5N.2C; GLUCOSE,POINT OF CARE 87 MG/DL (70-110)
[2023-12-19] MEDS: MethylPREDNISolone SOD SUCC 40 MG/ML VIAL IVP SCH (11:52)
[2023-12-19 12:51] LABS: BASOPHILS % (AUTO) 0.1 % (0.0-2.0); EOSINOPHILS % (AUTO) 0.3 % (1.0-6.0); HEMATOCRIT 36.6 % (41-53); HEMOGLOBIN 11.7 g/dL (13.5-17.5); LYMPHOCYTES # (AUTO) 1.3 K/uL (1.0-4.8); LYMPHOCYTES % (AUTO) 10.3 % (22.0-44.0); MEAN CORPUSCULAR HEMOGLOBIN 30.8 pg (26.0-34.0); MEAN CORPUSCULAR HGB CONC 32.1 G/dL (31.0-37.0); MEAN CORPUSCULAR VOLUME 96 fL (80-100); MONOCYTES # (AUTO) 1.8 K/uL (0.1-1.0); MONOCYTES % (AUTO) 14.5 % (2.0-9.0); NEUTROPHILS # (AUTO) 9.5 K/uL (1.8-7.7); NEUTROPHILS % (AUTO) 74.8 % (40.0-70.0); PLATELET COUNT (AUTO) 365 K/uL (150-450); RED BLOOD CELL COUNT(AUTO) 3.82 MIL/uL (4.50-5.90); RED CELL DISTRIBUTION WIDTH 17.2 % (11.5-14.5); WHITE BLOOD COUNT (AUTO) 12.7 K/uL (4.5-11.0)
[2023-12-19 13:13] LABS: ALBUMIN 2.7 g/dL (3.4-5.0); BILIRUBIN,TOTAL 0.5 mg/dL (0.1-1.0); CALCIUM, TOTAL 8.8 mg/dL (8.8-10.5); CREATININE 4.63 mg/dL (0.60-1.30); POTASSIUM 3.6 mmol/L (3.5-5.1); TOTAL PROTEIN, SERUM 7.5 g/dL (6.4-8.2)
[2023-12-19 20:36] LABS: GLUCOMETER DEV NAME(LOC) 5N.2C; GLUCOSE,POINT OF CARE 116 MG/DL (70-110)
[2023-12-19 20:36] LABS: GLUCOMETER DEV NAME(LOC) 5N.2C; GLUCOSE,POINT OF CARE 105 MG/DL (70-110)
[2023-12-19 20:36] LABS: GLUCOMETER DEV NAME(LOC) 5N.2C; GLUCOSE,POINT OF CARE 170 MG/DL (70-110)
[2023-12-19 21:00] LABS: GLUCOMETER DEV NAME(LOC) 5N.2C; GLUCOSE,POINT OF CARE 108 MG/DL (70-110)
[2023-12-20] VITALS (7 sets, daily range): BP systolic 129–171; BP diastolic 70–112; PULSE 71–87; RESP 18–20; TEMP 98.2–99; O2SAT 96–98
[2023-12-20] MEDS: MethylPREDNISolone SOD SUCC 40 MG/ML VIAL IVP SCH (09:32)
[2023-12-20 10:31] LABS: GLUCOMETER DEV NAME(LOC) 5S.1B; GLUCOSE,POINT OF CARE 107 MG/DL (70-110)
[2023-12-20 11:55] LABS: GLUCOMETER DEV NAME(LOC) 5N.2C; GLUCOSE,POINT OF CARE 142 MG/DL (70-110)
[2023-12-20 13:41] LABS: BASOPHILS % (AUTO) 0.1 % (0.0-2.0); EOSINOPHILS % (AUTO) 0.1 % (1.0-6.0); HEMATOCRIT 36.6 % (41-53); HEMOGLOBIN 11.8 g/dL (13.5-17.5); LYMPHOCYTES # (AUTO) 0.6 K/uL (1.0-4.8); LYMPHOCYTES % (AUTO) 6.3 % (22.0-44.0); MEAN CORPUSCULAR HEMOGLOBIN 31.5 pg (26.0-34.0); MEAN CORPUSCULAR HGB CONC 32.4 G/dL (31.0-37.0); MEAN CORPUSCULAR VOLUME 97 fL (80-100); MONOCYTES # (AUTO) 0.5 K/uL (0.1-1.0); MONOCYTES % (AUTO) 4.9 % (2.0-9.0); NEUTROPHILS # (AUTO) 8.9 K/uL (1.8-7.7); PLATELET COUNT (AUTO) 342 K/uL (150-450); RED BLOOD CELL COUNT(AUTO) 3.76 MIL/uL (4.50-5.90); RED CELL DISTRIBUTION WIDTH 17.5 % (11.5-14.5); WHITE BLOOD COUNT (AUTO) 10.1 K/uL (4.5-11.0)
[2023-12-20 13:44] LABS: NEUTROPHILS % (AUTO) 88.6 % (40.0-70.0)
[2023-12-20 13:57] LABS: ALBUMIN 2.6 g/dL (3.4-5.0); BILIRUBIN,TOTAL 0.4 mg/dL (0.1-1.0); CALCIUM, TOTAL 8.6 mg/dL (8.8-10.5); CREATININE 6.86 mg/dL (0.60-1.30); POTASSIUM 4.5 mmol/L (3.5-5.1)
[2023-12-20 18:11] LABS: GLUCOMETER DEV NAME(LOC) 5N.2C; GLUCOSE,POINT OF CARE 144 MG/DL (70-110)
[2023-12-20 21:46] LABS: GLUCOMETER DEV NAME(LOC) 5N.2C; GLUCOSE,POINT OF CARE 136 MG/DL (70-110)
[2023-12-21] VITALS (11 sets, daily range): BP systolic 122–191; BP diastolic 65–113; PULSE 60–81; RESP 18–22; TEMP 97.7–99.2; O2SAT 96–100
[2023-12-21 05:51] LABS: GLUCOMETER DEV NAME(LOC) 5N.2C; GLUCOSE,POINT OF CARE 145 MG/DL (70-110)
[2023-12-21] MEDS ORDERED: SODIUM CHLORIDE 0.9% 2,000 ML ONE (06:43)
[2023-12-21 13:10] LABS: GLUCOMETER DEV NAME(LOC) 5N.2C; GLUCOSE,POINT OF CARE 148 MG/DL (70-110)
[2023-12-21 19:16] LABS: GLUCOMETER DEV NAME(LOC) 5N.2C; GLUCOSE,POINT OF CARE 117 MG/DL (70-110)
[2023-12-21 22:40] LABS: GLUCOMETER DEV NAME(LOC) 5N.2C; GLUCOSE,POINT OF CARE 110 MG/DL (70-110)
[2023-12-22 04:00] VITALS: BP 151/85; PULSE 76; RESP 19; TEMP 97.5; O2SAT 98
[2023-12-22 08:10] VITALS: BP 161/108; PULSE 87; RESP 19; TEMP 98.9; O2SAT 97
[2023-12-22] MEDS ORDERED: DOCU-385 PO (11:54)
[2023-12-22] MEDS ORDERED: [UNRECOGNIZED DRUG - CODE] SQ (11:55)
[2023-12-22] MEDS ORDERED: HEPA500018 SQ (11:55)
[2023-12-22] MEDS ORDERED: ETHY1MED2 NASAL (11:55)
[2023-12-22] MEDS ORDERED: PARI1CAP11 PO (11:56)
[2023-12-22] MEDS ORDERED: LEVE-71 PO (11:56)
[2023-12-22] MEDS ORDERED: ACET-2247 PO (11:57)
[2023-12-22] MEDS ORDERED: BISA-151 PO (11:57)
[2023-12-22] MEDS ORDERED: ALBU2.5V39 NEB (11:57)
[2023-12-22] MEDS ORDERED: QUET25TA PO (11:57)
[2023-12-22] MEDS ORDERED: CLON0.1T2 PO (11:58)
[2023-12-22] MEDS ORDERED: IPRA0.2S49 NEB (11:59)
[2023-12-22] MEDS ORDERED: INSU100V SQ (12:01)
[2023-12-22 12:49] VITALS: BP 144/101; PULSE 82; RESP 18; TEMP 98.6; O2SAT 96
[2023-12-22 17:14] VITALS: BP 159/109; PULSE 98; RESP 18; TEMP 98.4; O2SAT 98
[2023-12-22 17:30] LABS: GLUCOMETER DEV NAME(LOC) 5N.2C; GLUCOSE,POINT OF CARE 112 MG/DL (70-110)
[2023-12-22 17:30] LABS: GLUCOMETER DEV NAME(LOC) 5N.2C; GLUCOSE,POINT OF CARE 109 MG/DL (70-110)
[2023-12-22 19:34] VITALS: BP 150/93; PULSE 80; RESP 19; TEMP 97.8; O2SAT 96
[2023-12-22] MEDS: QUEtiapine FUMARATE 25 MG TABLET PO SCH (21:05)
[2023-12-22] MEDS: LevETIRAcetam 100 MG/ML 5 ML SOLUTION UDCUP NG SCH (21:08)
[2023-12-22 23:35] VITALS: BP 154/92; PULSE 73; RESP 19; TEMP 98; O2SAT 94
[2023-12-23 05:16] VITALS: BP 171/114; PULSE 83; RESP 20; TEMP 97.7; O2SAT 97
[2023-12-23 08:00] VITALS: BP 152/104; PULSE 84; RESP 18; TEMP 98.3; O2SAT 97
[2023-12-23 11:35] VITALS: BP 142/100; PULSE 87; RESP 19; TEMP 98; O2SAT 98
[2023-12-23] MEDS: VITAMINS A & D 113 GM OINTMENT TP SCH (15:55)
[2023-12-23 16:41] VITALS: BP 152/106; PULSE 82; RESP 18; TEMP 97.8; O2SAT 96
[2023-12-23 20:01] LABS: GLUCOMETER DEV NAME(LOC) 5S.2D; GLUCOSE,POINT OF CARE 115 MG/DL (70-110)
[2023-12-23 20:01] LABS: GLUCOMETER DEV NAME(LOC) 5S.2D; GLUCOSE,POINT OF CARE 106 MG/DL (70-110)
[2023-12-23 20:01] LABS: GLUCOMETER DEV NAME(LOC) 5S.2D; GLUCOSE,POINT OF CARE 112 MG/DL (70-110)
[2023-12-23 20:01] LABS: GLUCOMETER DEV NAME(LOC) 5S.2D; GLUCOSE,POINT OF CARE 103 MG/DL (70-110)
[2023-12-23 20:03] VITALS: BP 156/99; PULSE 82; RESP 19; TEMP 98.6; O2SAT 97
[2023-12-24] VITALS (16 sets, daily range): BP systolic 117–184; BP diastolic 65–112; PULSE 77–99; RESP 18–20; TEMP 98.1–99.1; O2SAT 94–100
[2023-12-24 03:10] LABS: GLUCOMETER DEV NAME(LOC) 5S.2D; GLUCOSE,POINT OF CARE 86 MG/DL (70-110)
[2023-12-24 06:56] LABS: ALBUMIN 2.8 g/dL (3.4-5.0); BILIRUBIN,TOTAL 0.4 mg/dL (0.1-1.0); CALCIUM, TOTAL 9.2 mg/dL (8.8-10.5); CREATININE 9.03 mg/dL (0.60-1.30); POTASSIUM 5.3 mmol/L (3.5-5.1); TOTAL PROTEIN, SERUM 7.5 g/dL (6.4-8.2)
[2023-12-24 07:13] LABS: BASOPHILS % (AUTO) 1.6 % (0.0-2.0); EOSINOPHILS % (AUTO) 0.5 % (1.0-6.0); HEMATOCRIT 38.1 % (41-53); HEMOGLOBIN 12.3 g/dL (13.5-17.5); LYMPHOCYTES # (AUTO) 1.8 K/uL (1.0-4.8); LYMPHOCYTES % (AUTO) 16.9 % (22.0-44.0); MEAN CORPUSCULAR HEMOGLOBIN 31.6 pg (26.0-34.0); MEAN CORPUSCULAR HGB CONC 32.2 G/dL (31.0-37.0); MEAN CORPUSCULAR VOLUME 98 fL (80-100); MONOCYTES % (AUTO) 10.1 % (2.0-9.0); NEUTROPHILS # (AUTO) 7.4 K/uL (1.8-7.7); NEUTROPHILS % (AUTO) 70.9 % (40.0-70.0); RED BLOOD CELL COUNT(AUTO) 3.89 MIL/uL (4.50-5.90); RED CELL DISTRIBUTION WIDTH 19.6 % (11.5-14.5); WHITE BLOOD COUNT (AUTO) 10.4 K/uL (4.5-11.0)
[2023-12-24 07:26] LABS: PROTHROMBIN TIME 10.4 SEC (9.4-11.6)
[2023-12-24 08:04] LABS: PLATELET COUNT (AUTO) 399 K/uL (150-450)
[2023-12-24 08:36] LABS: GLUCOMETER DEV NAME(LOC) 5N.1D; GLUCOSE,POINT OF CARE 106 MG/DL (70-110)
[2023-12-24] MEDS ORDERED: IOHEXOL 300 MG/ML 50 ML VIAL ONE ×2 (10:59→11:25)
[2023-12-24] MEDS ORDERED: LIDOCAINE/PF 1% 30 ML VIAL ONE (11:00)
[2023-12-24] MEDS: LIDOCAINE 1% 30 ML/SOD BICARB 8.4% 4 ML SQ ONE (11:21)
[2023-12-24] MEDS: IOHEXOL 300 MG/ML 50 ML VIAL IVP ONE (11:23)
[2023-12-24] MEDS ORDERED: FentaNYL CITRATE PF 100 MCG/2 ML VIAL ONE (11:58)
[2023-12-24] MEDS: IOHEXOL 300 MG/ML 50 ML VIAL IARTER ONE (12:39)
[2023-12-24 17:30] LABS: GLUCOMETER DEV NAME(LOC) 5S.2D; GLUCOSE,POINT OF CARE 86 MG/DL (70-110)
[2023-12-24 23:40] LABS: GLUCOMETER DEV NAME(LOC) 5S.2D; GLUCOSE,POINT OF CARE 126 MG/DL (70-110)
[2023-12-25 00:41] VITALS: BP 136/95; PULSE 94; RESP 18; TEMP 98.5; O2SAT 98
[2023-12-25 04:24] VITALS: BP 142/88; PULSE 88; RESP 16; TEMP 98.2; O2SAT 98
[2023-12-25 07:22] VITALS: BP 151/90; PULSE 86; RESP 18; TEMP 97.9; O2SAT 98
[2023-12-25 11:10] VITALS: BP 144/90; PULSE 78; RESP 18; TEMP 97.5; O2SAT 97
[2023-12-25 16:07] VITALS: BP 141/88; PULSE 75; RESP 19; TEMP 98.4; O2SAT 99
[2023-12-25 17:51] LABS: GLUCOMETER DEV NAME(LOC) 6S.2; GLUCOSE,POINT OF CARE 80 MG/DL (70-110)
[2023-12-25 20:26] LABS: GLUCOMETER DEV NAME(LOC) 5S.2D; GLUCOSE,POINT OF CARE 119 MG/DL (70-110)
[2023-12-25 21:32] VITALS: BP 155/93; PULSE 75; RESP 19; TEMP 97.7; O2SAT 99
[2023-12-26] VITALS (11 sets, daily range): BP systolic 123–172; BP diastolic 80–110; PULSE 73–90; RESP 17–18; TEMP 97.7–98.2; O2SAT 97–99
[2023-12-26 03:20] LABS: GLUCOMETER DEV NAME(LOC) 6S.2; GLUCOSE,POINT OF CARE 111 MG/DL (70-110)
[2023-12-26 07:00] LABS: GLUCOMETER DEV NAME(LOC) 6S.2; GLUCOSE,POINT OF CARE 85 MG/DL (70-110)
[2023-12-26] MEDS ORDERED: LIDOCAINE/PF 1% 30 ML VIAL ONE (11:06)
[2023-12-26] MEDS ORDERED: FentaNYL CITRATE PF 100 MCG/2 ML VIAL ONE (11:06)
[2023-12-26] MEDS ORDERED: MIDAZOLAM HCL 2 MG/2 ML VIAL ONE (11:06)
[2023-12-26] MEDS ORDERED: DiphenhydrAMINE HCL 50 MG/ML VIAL ONE (11:15)
[2023-12-26] MEDS ORDERED: CeFAZolin SODIUM 1 GM VIAL ONE (11:30)
[2023-12-26] MEDS ORDERED: SODIUM CHLORIDE 0.9% 1,000 ML ONE (14:05)
[2023-12-26] MEDS: CeFAZolin SODIUM 1 GM VIAL IVP ONE (15:50)
[2023-12-26] MEDS: DiphenhydrAMINE HCL 50 MG/ML VIAL IVP ONE (15:50)
[2023-12-26] MEDS: LIDOCAINE 1% 30 ML/SOD BICARB 8.4% 4 ML SQ ONE (15:51)
[2023-12-26] MEDS: HEPARIN SODIUM,PORCINE 1,000 UNITS/ML VIAL IVCATH ONE ×2 (18:59→19:00)
[2023-12-26 19:01] LABS: GLUCOMETER DEV NAME(LOC) 6S.2; GLUCOSE,POINT OF CARE 76 MG/DL (70-110)
[2023-12-26 22:35] LABS: GLUCOMETER DEV NAME(LOC) 6S.2; GLUCOSE,POINT OF CARE 103 MG/DL (70-110)
[2023-12-27 04:00] VITALS: BP 143/97; PULSE 79; RESP 18; O2SAT 99
[2023-12-27 07:16] LABS: GLUCOMETER DEV NAME(LOC) 6S.2; GLUCOSE,POINT OF CARE 103 MG/DL (70-110)
[2023-12-27 09:38] VITALS: BP 153/98; PULSE 77; RESP 18; TEMP 99.1; O2SAT 97
[2023-12-27 14:51] LABS: GLUCOMETER DEV NAME(LOC) 6S.2; GLUCOSE,POINT OF CARE 98 MG/DL (70-110)
[2023-12-27 15:11] VITALS: BP 148/91; PULSE 75; RESP 18; TEMP 98.6; O2SAT 99
[2023-12-27] MEDS ORDERED: HEPARIN SODIUM,PORCINE 1,000 UNITS/ML VIAL IVP ONE (16:38)
[2023-12-27 17:45] LABS: GLUCOMETER DEV NAME(LOC) 6S.2; GLUCOSE,POINT OF CARE 91 MG/DL (70-110)
[2023-12-27 20:49] VITALS: BP 149/94; PULSE 85; RESP 18; TEMP 98; O2SAT 99
[2023-12-28] VITALS (12 sets, daily range): BP systolic 95–171; BP diastolic 63–107; PULSE 70–81; RESP 18–20; TEMP 97.3–99; O2SAT 93–100
[2023-12-28 07:01] LABS: GLUCOMETER DEV NAME(LOC) 6S.2; GLUCOSE,POINT OF CARE 105 MG/DL (70-110)
[2023-12-28 07:01] LABS: GLUCOMETER DEV NAME(LOC) 6S.2; GLUCOSE,POINT OF CARE 103 MG/DL (70-110)
[2023-12-28] MEDS ORDERED: SODIUM CHLORIDE 0.9% 1,000 ML ONE (09:37)
[2023-12-28] MEDS: HEPARIN SODIUM,PORCINE 1,000 UNITS/ML VIAL IVCATH ONE ×2 (13:35)
[2023-12-28] MEDS ORDERED: HEPARIN SODIUM,PORCINE 1,000 UNITS/ML VIAL ONE (22:04)
[2023-12-29 02:51] LABS: GLUCOMETER DEV NAME(LOC) 6S.2; GLUCOSE,POINT OF CARE 98 MG/DL (70-110)
[2023-12-29 02:51] LABS: GLUCOMETER DEV NAME(LOC) 6S.2; GLUCOSE,POINT OF CARE 109 MG/DL (70-110)
[2023-12-29 04:14] VITALS: BP 139/84; PULSE 71; RESP 20; TEMP 98.4; O2SAT 98
[2023-12-29 06:11] LABS: GLUCOMETER DEV NAME(LOC) 6S.2; GLUCOSE,POINT OF CARE 103 MG/DL (70-110)
[2023-12-29 07:55] VITALS: BP 151/97; PULSE 77; RESP 20; TEMP 98; O2SAT 98
[2023-12-29 15:33] VITALS: BP 146/96; PULSE 68; RESP 20; TEMP 97.7; O2SAT 98
[2023-12-29 15:50] LABS: EOSINOPHILS % (AUTO) 1.8 % (1.0-6.0); HEMOGLOBIN 11.4 g/dL (13.5-17.5); LYMPHOCYTES # (AUTO) 1.3 K/uL (1.0-4.8); LYMPHOCYTES % (AUTO) 23.3 % (22.0-44.0); MEAN CORPUSCULAR HEMOGLOBIN 31.1 pg (26.0-34.0); MEAN CORPUSCULAR HGB CONC 31.6 G/dL (31.0-37.0); MEAN CORPUSCULAR VOLUME 99 fL (80-100); MONOCYTES # (AUTO) 0.9 K/uL (0.1-1.0); NEUTROPHILS # (AUTO) 3.4 K/uL (1.8-7.7); NEUTROPHILS % (AUTO) 58.9 % (40.0-70.0); PLATELET COUNT (AUTO) 263 K/uL (150-450); RED BLOOD CELL COUNT(AUTO) 3.66 MIL/uL (4.50-5.90); RED CELL DISTRIBUTION WIDTH 17.9 % (11.5-14.5); WHITE BLOOD COUNT (AUTO) 5.7 K/uL (4.5-11.0)
[2023-12-29 16:01] LABS: CALCIUM, TOTAL 8.6 mg/dL (8.8-10.5); CREATININE 7.25 mg/dL (0.60-1.30); POTASSIUM 4.7 mmol/L (3.5-5.1)
[2023-12-29 19:38] VITALS: BP 111/57; PULSE 75; RESP 18; TEMP 98.6; O2SAT 96
[2023-12-30 01:35] LABS: GLUCOMETER DEV NAME(LOC) 6S.2; GLUCOSE,POINT OF CARE 98 MG/DL (70-110)
[2023-12-30 01:35] LABS: GLUCOMETER DEV NAME(LOC) 6S.2; GLUCOSE,POINT OF CARE 75 MG/DL (70-110)
[2023-12-30 08:00] VITALS: BP 155/90; PULSE 78; RESP 18; TEMP 98.2; O2SAT 100
[2023-12-30 16:00] VITALS: BP 154/90; PULSE 75; RESP 18; TEMP 98; O2SAT 98
[2023-12-30 19:51] LABS: GLUCOMETER DEV NAME(LOC) 6S.2; GLUCOSE,POINT OF CARE 67 MG/DL (70-110)
[2023-12-30 19:51] LABS: GLUCOMETER DEV NAME(LOC) 6S.2; GLUCOSE,POINT OF CARE 74 MG/DL (70-110)
== END 2023-12-30 16:15 | DRG 182 ==
LOC: EMS 16:50 → EDH 22:31 → ICU 23:30 → 5S 12-18 19:28 → 6S 12-25 14:39
PROVIDERS: ADMIT Hospitalist; ATTEND Hospitalist
PROC: 0BH18EZ Insertion of Endotracheal Airway into Trachea, Via Natural or Artificial Opening Endoscopic (ICD-10-PCS; 2023-12-02)
PROC: 5A1955Z Respiratory Ventilation, Greater than 96 Consecutive Hours (ICD-10-PCS; 2023-12-02)
PROC: 5A1D70Z Performance of Urinary Filtration, Intermittent, Less than 6 Hours Per Day (ICD-10-PCS; 2023-12-03)
PROC: 4A10X4Z Monitoring of Central Nervous Electrical Activity, External Approach (ICD-10-PCS; 2023-12-03)
PROC: 5A1D70Z Performance of Urinary Filtration, Intermittent, Less than 6 Hours Per Day (ICD-10-PCS; 2023-12-05)
PROC: 5A1D70Z Performance of Urinary Filtration, Intermittent, Less than 6 Hours Per Day (ICD-10-PCS; 2023-12-07)
PROC: 5A1D70Z Performance of Urinary Filtration, Intermittent, Less than 6 Hours Per Day (ICD-10-PCS; 2023-12-10)
PROC: 5A1D70Z Performance of Urinary Filtration, Intermittent, Less than 6 Hours Per Day (ICD-10-PCS; 2023-12-12)
PROC: 5A1D70Z Performance of Urinary Filtration, Intermittent, Less than 6 Hours Per Day (ICD-10-PCS; 2023-12-13)
PROC: 5A1D70Z Performance of Urinary Filtration, Intermittent, Less than 6 Hours Per Day (ICD-10-PCS; 2023-12-14)
PROC: 4A10X4Z Monitoring of Central Nervous Electrical Activity, External Approach (ICD-10-PCS; 2023-12-14)
PROC: 5A1D70Z Performance of Urinary Filtration, Intermittent, Less than 6 Hours Per Day (ICD-10-PCS; 2023-12-16)
PROC: 5A1D70Z Performance of Urinary Filtration, Intermittent, Less than 6 Hours Per Day (ICD-10-PCS; 2023-12-17)
PROC: 5A1D70Z Performance of Urinary Filtration, Intermittent, Less than 6 Hours Per Day (ICD-10-PCS; 2023-12-19)
PROC: 5A1D70Z Performance of Urinary Filtration, Intermittent, Less than 6 Hours Per Day (ICD-10-PCS; 2023-12-21)
PROC: 05743ZZ Dilation of Left Innominate Vein, Percutaneous Approach (ICD-10-PCS; principal; 2023-12-24)
PROC: B5171ZZ Fluoroscopy of Left Subclavian Vein using Low Osmolar Contrast (ICD-10-PCS; 2023-12-24)
PROC: B51WYZZ Fluoroscopy of Dialysis Shunt/Fistula using Other Contrast (ICD-10-PCS; 2023-12-24)
PROC: B51W1ZZ Fluoroscopy of Dialysis Shunt/Fistula using Low Osmolar Contrast (ICD-10-PCS; 2023-12-24)
PROC: 5A1D70Z Performance of Urinary Filtration, Intermittent, Less than 6 Hours Per Day (ICD-10-PCS; 2023-12-24)
PROC: B5181ZA Fluoroscopy of Superior Vena Cava using Low Osmolar Contrast, Guidance (ICD-10-PCS; 2023-12-24)
PROC: 0JH63XZ Insertion of Tunneled Vascular Access Device into Chest Subcutaneous Tissue and Fascia, Percutaneous Approach (ICD-10-PCS; 2023-12-26)
PROC: 0JH63XZ Insertion of Tunneled Vascular Access Device into Chest Subcutaneous Tissue and Fascia, Percutaneous Approach (ICD-10-PCS; 2023-12-26)
PROC: 02HV33Z Insertion of Infusion Device into Superior Vena Cava, Percutaneous Approach (ICD-10-PCS; 2023-12-26)
PROC: B548ZZA Ultrasonography of Superior Vena Cava, Guidance (ICD-10-PCS; 2023-12-26)
PROC: 5A1D70Z Performance of Urinary Filtration, Intermittent, Less than 6 Hours Per Day (ICD-10-PCS; 2023-12-26)
DX: T82.598A Other mechanical complication of other cardiac and vascular devices and implants, initial encounter (principal); J96.01 Acute respiratory failure with hypoxia; J69.0 Pneumonitis due to inhalation of food and vomit; G92.8 Other toxic encephalopathy; E44.0 Moderate protein-calorie malnutrition; R64 Cachexia; I13.2 Hypertensive heart and chronic kidney disease with heart failure and with stage 5 chronic kidney disease, or end stage renal disease; E83.39 Other disorders of phosphorus metabolism; D63.8 Anemia in other chronic diseases classified elsewhere; J43.2 Centrilobular emphysema; I16.1 Hypertensive emergency; E83.51 Hypocalcemia; J44.0 Chronic obstructive pulmonary disease with (acute) lower respiratory infection; J38.4 Edema of larynx; E87.20 Acidosis, unspecified; I72.3 Aneurysm of iliac artery; N18.6 End stage renal disease; Z99.2 Dependence on renal dialysis; N25.81 Secondary hyperparathyroidism of renal origin; R62.7 Adult failure to thrive; Z91.158 Patient's noncompliance with renal dialysis for other reason; E87.5 Hyperkalemia; I50.9 Heart failure, unspecified; R56.9 Unspecified convulsions; Z82.49 Family history of ischemic heart disease and other diseases of the circulatory system; Z86.73 Personal history of transient ischemic attack (TIA), and cerebral infarction without residual deficits; Z87.891 Personal history of nicotine dependence; Z91.199 Patient's noncompliance with other medical treatment and regimen due to unspecified reason; E88.09 Other disorders of plasma-protein metabolism, not elsewhere classified; Y82.8 Other medical devices associated with adverse incidents; Y92.89 Other specified places as the place of occurrence of the external cause; Z68.25 Body mass index [BMI] 25.0-25.9, adult; E87.6 Hypokalemia; R13.10 Dysphagia, unspecified
CPT/HCPCS: 36147; 36245; 36561; 36600; 70450; 70490; 71045; 71250; 72192; 74150; 75962; 76000; 76001; 80048; 80053; 82805; 82962; 83605; 83690; 83735; 83880; 84100; 84484; 85025; 85610; 87040; 87070; 87081; 87324; 87340; 87449; 87481; 87804; 90935; 92526; 92610; 93005; 93925; 94002; 94003; 94640; 95816; 97162; 97167; 97530; 97535; 99291; C2623; C9113; G0238; G0378; J0360; J0690; J0696; J0712; J0885; J1200; J1644; J2060; J2250; J2405; J2501; J2704; J2765; J3010; J3480; J3490; J7030; J7050; J7060; P9047; Q9967; 36415-L1; 36415-TC